=== PATIENT | male | born 1960 | race Caucasian/White ===

== ENCOUNTER 2016-06-06 07:58 | Emergency (ER) | payer BC ==
[~2016-06-06] VITALS: Ht 175.3 cm; Wt 87.1 kg
[2016-06-06] MEDS ORDERED: LISI-538 (08:26)
[2016-06-06] MEDS ORDERED: GABA-279 (08:26)
[2016-06-06] MEDS ORDERED: LISI40TAB (08:26)
[2016-06-06] MEDS ORDERED: ATOR40TA (08:26)
[2016-06-06] MEDS ORDERED: FLUT1SPR2 (08:26)
[2016-06-06] MEDS ORDERED: LABE20TAB (08:26)
[2016-06-06] MEDS ORDERED: ALBU83IN (08:26)
[2016-06-06] MEDS ORDERED: ATRO0.063 (08:26)
[2016-06-06] MEDS ORDERED: IPRATROPIUM 0.5MG/ALBUTEROL 2.5MG INH SOL UD 3ML (DUONEB)(J7620) NEB ONE (08:45)
[2016-06-06] MEDS ORDERED: PRED20TA PO (09:51)
[2016-06-06 09:59] VITALS: BP 162/98
--- NOTE | 2016-06-06 09:59 | REP ---
CHEST, TWO VIEWS: COMPARISON: 01/19/2016. There is no evidence of acute infiltrate. No pleural effusion is seen. The heart is normal in size. The mediastinal silhouette is unremarkable. The visualized osseous structures are intact. There are degenerative changes of the spine. IMPRESSION: No acute pulmonary disease. Signed by Luciano Russell MD 06/06/2016 01:55 P
== END 2016-06-06 10:02 | disposition home or self-care (01) ==
LOC: M ED 09:40
DX: J45.901 Unspecified asthma with (acute) exacerbation (principal); J06.9 Acute upper respiratory infection, unspecified; I10 Essential (primary) hypertension; K58.9 Irritable bowel syndrome, unspecified; G89.29 Other chronic pain; M54.9 Dorsalgia, unspecified; F17.200 Nicotine dependence, unspecified, uncomplicated; Z79.899 Other long term (current) drug therapy

== ENCOUNTER → 2016-06-25 | Outpatient (CLI) | payer BC ==
[~2016-06-25] MED LIST: ADVA115A INH; ALBU83IN; ATOR40TA; ATOR40TA PO; ATRO0.063; ELIQ5TAB PO; FLUT1SPR2; GABA-279; GABA-279 PO; LABE20TAB; LABE20TAB PO; LEVA750T PO; LISI-538; LISI10TA4 PO; LISI40TAB; LISI40TAB PO; LOPR1TAB6 PO; PRED20TA PO; PROA1AER INH
--- NOTE | 2016-07-01 06:07 | SLEEPHOME ---
DATE OF PROCEDURE: 06/25/2013 ORDERED BY: Kim Huerta NP Diagnostic home sleep testing was performed due to concern for the obstructive sleep apnea syndrome in this patient with a history of excessive somnolence and nonrestorative sleep. For testing, a NOX-T3 respiratory monitoring device was used. Continuous record was made of pulse, oxygen saturation, airflow, chest and abdominal strain and body position. 9 hours and 59 minutes of data were reviewed. Of these, 6 hours and 27 minutes were marked as time in bed. During the interval marked time in bed, there were 129 respiratory events identified of 10 seconds in duration or greater for a respiratory event index of 20. The events were primarily obstructive in character. The patient's baseline pulse rate was 84 beats per minute. Pulse rate ranged 59-126. Baseline oxygen saturation 93%. Lowest oxygen saturation 83%. Testing was performed in both the supine and non-supine positions. IMPRESSION: Abnormal home sleep testing with repetitive respiratory events and oxygen desaturations to 83% with a respiratory event index of 20 is consistent with the obstructive sleep apnea syndrome. RECOMMENDATION: The patient should be referred for formal sleep evaluation and in-laboratory pressure titration.
== END ==
LOC: M SLEEP HO 06-21 08:28
PROVIDERS: ATTEND Nurse Practitioner Adult Health
DX: G47.30 Sleep apnea, unspecified (principal)

== ENCOUNTER 2016-06-28 03:12 | Inpatient (IN) | payer BC ==
[~2016-06-28] VITALS: Ht 175.3 cm; Wt 85.9 kg
[~2016-06-28 03:12] MED LIST changes: -ADVA115A INH; -ATOR40TA PO; -ELIQ5TAB PO; -GABA-279 PO; -LABE20TAB PO; -LEVA750T PO; -LISI10TA4 PO; -LISI40TAB PO; -LOPR1TAB6 PO; -PROA1AER INH
[2016-06-28] MEDS ORDERED: METOPROLOL 5 MG/5 ML VIAL As Ordered ONE (03:42)
[2016-06-28] MEDS ORDERED: NS 1,000 ML IV ONE ×2 (03:45→04:30)
[2016-06-28] MEDS ORDERED: ASPIRIN 81 MG CHEW TABLET PO ONE (03:45)
[2016-06-28] MEDS: METOPROLOL 5 MG/5 ML VIAL IV SCH ×6 (03:47→06:10)
[2016-06-28 03:54] LABS: BASO % 0.5 % (0.0-1.0); EOS # 0.3 K/mm3 (0.0-0.50); EOS % 3.6 % (0.0-3.0); LARGE UNSTAINED CELL # 0.2 K/mm3 (0.0-0.4); LARGE UNSTAINED CELL % 2.3 % (0.0-4.0); LYMPH # 1.5 K/mm3 (1.5-4.5); LYMPH % 14.6 % (24.0-44.0); MEAN CORPUSCULAR HEMOGLOBIN 30.1 pg (27.0-33.0); MEAN CORPUSCULAR HGB CONC 33.2 g/dl (32.0-36.5); MEAN CORPUSCULAR VOLUME 90.6 fl (80.0-96.0); MONO # 0.7 K/mm3 (0.0-0.8); MONO % 7.9 % (0.0-5.0); NEUTROPHILS # 6.4 K/mm3 (1.8-7.7); NEUTROPHILS % 71.2 % (36.0-66.0); PLATELET COUNT, AUTOMATED 195 k/mm3 (150-450); RED CELL DISTRIBUTION WIDTH 13.8 % (11.5-14.5); WHITE BLOOD COUNT 8.9 K/mm3 (4.0-10.0)
[2016-06-28] MEDS ORDERED: DIGOXIN INJ 0.5 MG/2 ML AMP (J1160) IV STA (04:38)
[2016-06-28 05:11] LABS: CALCIUM LEVEL 7.4 MG/DL (8.5-10.1); CREATININE FOR GFR 1.61 MG/DL (0.70-1.30); FREE T4 0.62 NG/DL (0.76-1.46); GLOMERULAR FILTRATION RATE 47.8 (>56); MAGNESIUM LEVEL 1.7 MG/DL (1.8-2.4)
[2016-06-28] MEDS ORDERED: MAG SULF 1GM/100ML (MAG RUN) 1 GM in APPROPRIATE DILUENT 1 EA IV ONE (05:45)
[2016-06-28] MEDS ORDERED: ATENOLOL 50 MG TAB PO ONE (06:15)
[2016-06-28] MEDS ORDERED: DIGOXIN INJ 0.5 MG/2 ML AMP (J1160) IV ONE (06:30)
--- NOTE | 2016-06-28 07:49 | REP ---
Clinical: Chest pain . Comparison: 06/06/2016 . Findings: The mediastinum and cardiac silhouette are stable and within normal limits for portable technique. The lung melvin are clear without acute consolidation, effusion, or pneumothorax. Skeletal structures are intact. Impression: Normal portable chest x-ray Signed by Ciaran Goddard MD 06/28/2016 07:40 A
[2016-06-28] MEDS ORDERED: LABE20TAB PO (08:39)
[2016-06-28] MEDS ORDERED: ADVA115A INH (08:39)
[2016-06-28] MEDS ORDERED: ATOR40TA PO (08:39)
[2016-06-28] MEDS ORDERED: PROA1AER INH (08:39)
[2016-06-28] MEDS ORDERED: LISI40TAB PO (08:39)
[2016-06-28 08:46] LABS: CALCIUM LEVEL 7.1 MG/DL (8.5-10.1); CREATININE FOR GFR 1.47 MG/DL (0.70-1.30); GLOMERULAR FILTRATION RATE 53.1 (>56); POTASSIUM SERUM 4.9 MEQ/L (3.5-5.1)
[2016-06-28] MEDS ORDERED: APIXABAN 5 MG TAB (ELIQUIS) PO SCH (09:00)
[2016-06-28] MEDS ORDERED: LISI10TA4 PO (09:12)
[2016-06-28 09:39] VITALS: BP 90/53
--- NOTE | 2016-06-28 09:41 | ECGEPIP ---
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
[2016-06-28] MEDS ORDERED: GABA-279 PO (10:08)
[2016-06-28] MEDS ORDERED: ALBUTEROL 90 MCG/ACT 8GM HFA INHALER INH PRN (10:45)
--- NOTE | 2016-06-28 11:18 | HPE ---
DATE OF ADMISSION: 06/28/2016 PRIMARY CARE PHYSICIAN: Telma Carlton. STEEL SASH ERECTOR: Dr. Henriquez. CHIEF COMPLAINT: Shortness of breath and chest pressure. HISTORY OF PRESENT ILLNESS: The patient is a 56-year-old man who was previously not seen by doctors who recently established primary care over the last several weeks with Telma Carlton. He was found to have hypertension and medications were titrated up. He reportedly has had an abnormality on his EKG and was referred to Dr. Henriquez who completed the stress test and an echocardiogram which were completed just this past Tuesday. 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 In the emergency room, the patient was found to be in atrial fibrillation with a rapid ventricular response. Dr. Logan was called overnight and this morning and the case was discussed with him. The patient did receive Lopressor 5 mg IV times three doses. This protocol was completed twice. In addition, this patient also received a total of 0.5 mg of digoxin. The patient also received 50 mg of atenolol once. The patient gradually became hypotensive and the hospitalist service was called for admission. At the present time, the patient tells me that he feels lightheaded when he sits up but when he is lying flat, he is comfortable. He states that the chest pressure comes and goes intermittently but the shortness of breath is improved at this time. PAST MEDICAL HISTORY: Asthma. Dyslipidemia. Hypertension. Irritable bowel syndrome. HOME MEDICATIONS: - labetalol 200 mg daily - lisinopril 40 mg daily - atorvastatin 40 mg daily at bedtime - Advair 115/25 two puffs inhaled twice daily - Pro Air HFA 108 mcg two puffs every 4 hours as needed shortness of breath No known drug allergies. SOCIAL HISTORY: The patient is a former smoker. He denies any recent alcohol use. He works at [employer]. Denies elicit substance abuse. FAMILY HISTORY: Noncontributory. REVIEW OF SYSTEMS: Negative other than history of present illness. SURGICAL HISTORY: None. OBJECTIVE: Vital signs: Temperature 96.2, pulse 100-110 while I am examining him, respiratory rate 20, blood pressure 90/59, oxygen saturation 97% on 2 liters nasal cannula. General: He is a well built man lying flat in bed. He does not appear to be in any acute distress. HEENT: He has a long recinos and long hair. any elevation of central venous pressure. He has moist mucous membranes. Cranial nerves II-XII grossly intact. Cardiovascular exam: S1, S2. Irregularly irregular. Mildly tachycardia. Respiratory exam: Clear. Abdominal exam: Benign. Extremities: He has numerous tattoos, some of them appear not to be professionally completed. There is no clubbing, cyanosis or edema. LABORATORY STUDIES: WBC 8.9, hemoglobin 32.7, platelet count 195. Chemistry panel: Sodium 139, potassium 4.9, chloride 107, bicarbonate 22, BUN 29, creatinine 1.6 improving to 1.4 after IV fluid resuscitation in the emergency room. He has a TSH slightly elevated at 4.1. Chest x-ray is completed. It is a normal portable chest x-ray. EKG revealed atrial fibrillation with rapid ventricular response. ASSESSMENT AND PLAN: This is a 56-year-old man with new onset atrial fibrillation with rapid ventricular response. PROBLEMS: 1. Atrial fibrillation with rapid ventricular response. He reportedly recently had a stress test and echocardiogram completed within the last week at Dr. Henriquez and Dr. Diego's office. I have contacted Dr. Diego and made him aware of the case. He has agreed to see the patient in consultation. For the time being, the patient is quite hypotensive. I will not administer any further beta blockers at this time. In fact, I will provide him with normal saline 100 mL an hour as he is quite symptomatic with orthostasis at this time. I will continue with oral digoxin. Should his blood pressure improve, could consider standing beta gurvinder medication with careful hold parameters but at present, his heart rate is at least acceptable within 100-110s. It is unclear if this is or not. An echocardiogram would likely be helpful to elucidate further. Given that he has stayed in atrial fibrillation, there does not appear to be any appreciably, in fact long standing hypotension which is likely untreated. I would like to start him on anticoagulation with Eliquis. He will likely need a prior authorization for this prior to any dispositioning should we decide that he remain on this medication. 2. Asthma. Continue with standing Advair and albuterol as needed. 3. Hypertension. Patient is actually hypotensive at the present time and as such, his labetalol and lisinopril will be placed on hold. 4. Acute kidney injury likely related to lisinopril use and also hypotension related to atrial fibrillation with rapid ventricular response and medication administration. For rate control for the time being, we will continue to provide him with IV fluid. It appears to trending in the right direction. Continue to follow. 5. Dyslipidemia. Continue with atorvastatin. DISPOSITION: The patient is admitted to the progressive care unit. We will continue to follow him closely. He will be followed up by Dr. Trujillo starting 06/29/2016. We will trend his cardiac enzymes.
[2016-06-28] MEDS: ACETAMINOPHEN TAB 650MG DOSE (2X325MG) PO PRN (11:43)
[2016-06-28] MEDS: NS 1,000 ML IV SCH ×2 (12:14→21:05)
[2016-06-28 12:17] LABS: INR 1.06
[2016-06-28 12:45] LABS: THYROXINE (T4) 3.3 UG/DL (4.5-12.0)
[2016-06-28 13:45] VITALS: BP 126/66
[2016-06-28 16:00] VITALS: BP 109/65
[2016-06-28] MEDS: METOPROLOL TART 25 MG TABLET PO SCH (18:37)
[2016-06-28 19:16] VITALS: BP 84/50
[2016-06-28] MEDS ORDERED: SODIUM CHLORIDE 0.9% 1000 ML IV ONE ×2 (20:00→22:00)
[2016-06-28] MEDS: ADVAIR HFA 115/21 INHALER INH SCH (20:51)
--- NOTE | 2016-06-28 21:25 | ECGEPIP ---
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
--- NOTE | 2016-06-28 21:49 | CR ---
DATE OF CARDIAC CONSULTATION: 06/28/2016 REFERRING PHYSICIAN: Dr. Navarrete INDICATION: Atrial fibrillation, chest pain, shortness of breath. HISTORY OF PRESENT ILLNESS: Mr. Roper is previously unknown to me. He is a 56-year-old man who in the past did not get much medical care. It appears that only last month or two he established care with a primary care physician. He eventually was referred to my partner Dr. Henriquez for a stress test and echocardiogram that were completed on June 23. Both tests were relatively uneventful, but then he presented on 06/28/2016 to [facility] emergency room because of chest discomfort and shortness of breath. The symptoms started at work. 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 There was associated sensation of shortness of breath. He eventually made it to the emergency room on insistence of his colleagues. He was found to be in atrial fibrillation with rapid ventricular response. He was treated with administration of initially IV beta blockers and digoxin, but then his condition started to be complicated by episodes of hypotension and he was receiving fairly vigorous IV hydration. The chest discomfort relatively subsided, but he continues to have brief episodes that would last about 30-60 seconds at a time. Now he describes the pain as sharp sensation, even though initially at night it was more like pressure or tightness. He tells me that he has not had similar symptoms before in this intensity and duration even though he has had intermittent episodes of chest discomfort of similar kind for long period of time. At the time of my interview he fairly comfortable. He lays in PCU bed and tells me that besides occasional episode of chest pain that would occur about once every 30 minutes and last only seconds at a time, he has been feeling fairly well. PAST MEDICAL HISTORY: The patient has not had consistent medical care for many years. He carries a diagnosis of asthma that has been the case for decades. More recently after he establish care he was found to be markedly hypertensive and was started on a combination of initially lisinopril and later there was addition of labetalol. He had an echocardiogram and nuclear stress test completed in our office and interpreted by Dr. Henriquez on June 23, 2016. Exercise nuclear stress test revealed excellent exertional tolerance. He was able to exercise for 13 metabolic equivalents and reached 83% of maximum predicted heart rate and a somewhat hypertensive blood pressure response to exercise. There was no chest discomfort during the test and he had no arrhythmias. Also there was no EKG evidence for ischemia. Perfusion imaging though revealed inferoseptal defect that was mostly fixed and relatively small and this was in setting of diaphragmatic attenuation. Overall the test was interpreted as mildly abnormal. An echocardiogram performed on the same day revealed relatively normal study. Again, there was questionable inferior wall hypokinesis, but overall ejection fraction was reported 55-60% and there was no significant valvular disease. He also has a history of hyperlipidemia, chronic back pain and probable also obstructive sleep apnea. He has apparently loud snoring and witnessed pauses. He completed outpatient sleep study that has not been interpreted yet. OUTPATIENT MEDICATIONS: - Lipitor 40 mg a day - labetalol 200 mg a day - lisinopril 40 mg a day - Advair - ProAir ALLERGIES: He reports no medication allergies. SOCIAL HISTORY: The patient is single, has no children. She currently lives with his neice. He does not smoke and does not drink any alcohol. He did smoke intermittently in the past, but his pack-year history is probably less than 20. He also reports fairly remote history of significant alcohol use, but nothing recently. FAMILY HISTORY: His mother in advanced age of probably COPD and congestive heart failure. She was diabetic. Father also had COPD and diabetes, but to the best of the patient and his sister, they did not have heart attacks, stents or coronary artery bypass surgery. PAST SURGICAL HISTORY: He has not had any surgeries. REVIEW OF SYSTEMS: On the review of systems he admits that approximately 3 weeks ago he had a prolonged upper respiratory infection, but denies any truly recent fever, chills, nausea, vomiting, diarrhea, abdominal pain. No bleeding problems. No history of stroke. He denies any palpitations other than the night before the admission. Denies any history of syncope. No peripheral edema. No genitourinary symptoms and the rest of review of system is negative. PHYSICAL EXAMINATION: Mr. Roper is a middle-aged man. He appears to be in good physical shape; does not appear to be in any distress. The last set of vital signs reveal blood pressure 100/58, heart rate about 120. He was afebrile. Saturation was 97% on room air. His jugular venous pressure is not elevated. Lungs are clear to auscultation with good air movement bilaterally. Heart: Exam reveals irregularly irregular rhythm. I do not appreciate any gallop, rub or murmur. Abdomen is soft without rebound tenderness. No hepatosplenomegaly. Good bowel sounds. Extremities are free of edema and peripheral pulses are of good quality. Neurologic exam is intact. LABORATORY DATA: He has had a CBC, which would is completely normal. Basic metabolic panel reveals potassium 4.9, BUN 29, creatinine 1.5 for GFR 53 and glucose 104. Two sets of cardiac enzymes have been negative. TSH was 4.1 with free T4 index 1.2 and INR was 1.1. Chest x-ray is unremarkable and ECG reveals atrial fibrillation with rapid ventricular response, but without significant ST-T abnormalities. ASSESSMENT/PLAN: Mr. Roper is a middle-aged man who has a history of hypertension, asthma and hyperlipidemia who presents with less than 24 hours history of chest discomfort that has some features of angina, but there is no evidence for ischemia or myocardial necrosis in spite of at least 3 or 4 hours of constant discomfort. He also is found in atrial fibrillation with rapid ventricular response and relatively hypotensive. At this point, I have to admit that I have difficult time reconciling the whole history. I am not quite sure why he developed atrial fibrillation in this particular time and also I am not certain what is the etiology of chest discomfort. So far there has not been any objective evidence to suggest that this is ischemic in nature. I agree with current management. I would continue digoxin loading with as needed (p.r.n.) administration of beta blockers for additional rate control. We will complete formal rule out protocol even though at this point I would be surprised if he rules in for ischemia. I do not suspect that he has pulmonary embolism as he is saturating in high 90s without any difficulty. Even though he did have a recent echocardiogram, I probably will repeat the study unless he converts to sinus mechanism by tomorrow morning. If he does not convert to sinus mechanism overnight I would consider administration of flecainide or similar agent. By history he has not been in atrial fibrillation for more than 24 hours and consequently I believe it is safe to proceed with cardioversion. Further evaluation for coronary artery disease can be completed on outpatient basis on the direction of Dr. Henriquez. I will continue following the patient with you. ESAU
[2016-06-28 22:05] VITALS: BP 112/57
[2016-06-28] MEDS: ATORVASTATIN 20 MG TAB PO SCH (22:15)
[2016-06-28] MEDS: APIXABAN 5 MG TAB (ELIQUIS) PO SCH (22:15)
[2016-06-29] VITALS (8 sets, daily range): BP systolic 105–140; BP diastolic 69–136
--- NOTE | 2016-06-29 00:33 | IPN ---
DATE: 06/28/2016 TIME THE PATIENT WAS SEEN: 20:00 Evening resident and attending were paged around 7:50 due to patient had a drop in blood pressure. Blood pressure was 100s systolic during the day and dropped to 84/50 during the evening. Upon reviewing the chart, the patient appears to be a 56-year-old male with a past medical history of asthma, hypertension, irritable bowel syndrome, dyslipidemia and he presented with atrial fibrillation with rapid ventricular response and he also had a stress echocardiogram completed within the last week at Dr. Henriquez and Dr. Diego's office. The patient did receive several doses of beta gurvinder, as well as digoxin before admission. During the day time, the patient received 2 liters of boluses. The last time the patient received beta gurvinder the day prior around 4 a.m. The patient also has beta gurvinder 25 mg every 6 hours with hold parameters, as well as digoxin 0.25 mg. When the patient was seen, he was asymptomatic. Denies any chest pain, trouble breathing, denies feeling dizzy. However, he appeared to be sweaty. His heart rate continued to be irregular. At this point, electrocardiogram (EKG) was done, shows atrial fibrillation with moderate fast ventricular response, nonspecific ST-T wave abnormalities with heart rate of 115 and cardiac marker was done as well, shows a troponin of 0.06, slightly elevated compared to prior troponin at 4 p.m., which was 0.05. At this point, the patient was initially bolused with 250 mL of normal saline. Another 500 mL of normal saline bolus was added and the patient's second blood pressure reading was 105/57. Will continue to monitor the patient on cardiac telemetry at this point and followup with morning cardiac marker. The patient has been discussed with the attending doctor, Dr. Jones. My preceptor for this patient encounter was Dr. Jones . The preceptor was physically present in the building during the encounter and was fully available. As needed, all aspects of the patient interview, examination, medical decision making process, and medical care plan development were reviewed and approved by the preceptor. The preceptor is aware and concurs with the plan as stated in the body of this note and will attest to such by his/her cosignature. ESAU
[2016-06-29] MEDS: METOPROLOL TART 25 MG TABLET PO SCH ×4 (00:42→17:21)
[2016-06-29 04:16] LABS: MEAN CORPUSCULAR HEMOGLOBIN 29.8 pg (27.0-33.0); MEAN CORPUSCULAR HGB CONC 33.1 g/dl (32.0-36.5); MEAN CORPUSCULAR VOLUME 89.9 fl (80.0-96.0); RED CELL DISTRIBUTION WIDTH 13.7 % (11.5-14.5); WHITE BLOOD COUNT 9.1 K/mm3 (4.0-10.0)
[2016-06-29 04:39] LABS: ANION GAP 8 MEQ/L (8-16); BLOOD UREA NITROGEN 17 MG/DL (7-18); CALCIUM LEVEL 7.7 MG/DL (8.5-10.1); CARBON DIOXIDE LEVEL 25 MEQ/L (21-32); CHLORIDE LEVEL 110 MEQ/L (98-107); CREATININE FOR GFR 1.12 MG/DL (0.70-1.30); GLOMERULAR FILTRATION RATE > 60.0 (>56); GLUCOSE, FASTING 100 MG/DL (70-105); POTASSIUM SERUM 4.5 MEQ/L (3.5-5.1); SODIUM LEVEL 143 MEQ/L (136-145)
[2016-06-29] MEDS: NS 1,000 ML IV SCH (05:52)
[2016-06-29] MEDS: ADVAIR HFA 115/21 INHALER INH SCH ×2 (07:09→19:27)
--- NOTE | 2016-06-29 07:56 | IPN ---
DATE: 06/29/2016 Mr. Roper had a relatively uneventful night. He told me that he was able to sleep without difficulty. After he woke up this morning, he still has brief episodes of chest discomfort that are much less severe than yesterday. On telemetry monitoring, he remained in atrial fibrillation with mostly fast ventricular rate that fluctuated between 80s to 130s. Blood pressure 135/78, heart rate 93, afebrile, saturation 94% on room air. Weight 86.7 kg. He is alert, oriented and appropriate. His jugular venous pulse (JVP) is not elevated. Lungs are clear to auscultation. Heart exam revealed irregularly irregular rhythm. No gallop, rub or murmur is appreciated. Abdomen is soft, nontender. There is no peripheral edema. Neurologically, he is intact. There are no skin lesions. Laboratory-valle, his basic metabolic panel remains normal. Cardiac enzymes remain normal times four. CBC is normal as well. ASSESSMENT/PLAN: Mr. Roper is a 56-year-old man who came in with chest discomfort that has some features of angina, but there were no ischemic abnormalities on electrocardiogram (EKG) and his cardiac enzymes remain negative in spite of many hours of chest discomfort. He was found to be in atrial fibrillation with rapid ventricular response. He has had so far 0.75 mg of digoxin and he will get another 0.25 mg of digoxin this morning and on top of it receiving metoprolol. Rate is still not perfectly well controlled, but is much better. Because the duration of the arrhythmia is less than 24 hours before the onset of anticoagulation, I am going to give him flecainide with the attempt to bring him back to sinus mechanism. I am going to give him 150 mg initial dose and if he should not convert then will give him an additional 100 mg a couple of hours later. I am quite optimistic that the conversion will occur. In the interim, will continue remaining medications.
[2016-06-29] MEDS ORDERED: FLECAINIDE 50MG TABLET PO ONE ×2 (08:00→11:45)
[2016-06-29] MEDS: APIXABAN 5 MG TAB (ELIQUIS) PO SCH ×2 (08:30→20:13)
[2016-06-29] MEDS ORDERED: DIGOXIN 0.25 MG TAB PO SCH (09:00)
--- NOTE | 2016-06-29 09:51 | IPNPDOC ---
Text Note Date of Service The patient was seen on 06/29/16. NOTE Subjective: Patient is a 56 year old male with a PMHx of Asthma, DLP, HTN and Imitable bowel syndrome who presented to the ER with complaints of SOB and chest pressure. In the ER he was found to have A.fib with RVR and received Metoprolol 5mg IV x6, Digoxin loading and Atenolol. His HR was better controlled but he was hypotensive. His blood pressure improved with IV fluid hydration. Patient was seen and examined at the bedside. Currently he does not note any SOB or chest pain. Objective: Vitals (See below) General: Lying in bed, no acute distress, comfortable, AAOx3 HEENT: NC, AT CVS: Irregularly irregular, +S1S2 Lungs: Fair air entry b/l, -w/r/r Abdomen: Soft, ND, NT, +BSx4 Extremities: +PPx4, - Edema, - Calf tenderness Assessment and Plan: 1. New onset atrial fibrillation - Presented with SOB and chest discomfort - In ER received several doses of Metoprolol IV and oral beta gurvinder, was loaded with digoxin - Recent history of stress test and ECHO done as an outpatient with Dr. Henriquez - Will get repeat ECHO - Dr. Diego on consult - appreciate their input - Will attempt to pharmacologically cardiovert to normal sinus rhythm with Flecainide - On anticoagulation with Eliquis 2. Acute Kidney Injury - likely pre-renal etiology 2/2 Hypotension - Cr has been trending down - Will c/w IV fluid resuscitation 3. Asthma - No evidence of exacerbation at this time - c/w Advair and Albuterol PRN 4. HTN - BP well controlled - Was found to have positive orthostatics; given many beta blockers - will continue to check orthostatic vital signs - will continue to hold blood pressure medications 5. DLP - c/w atorvastatin 6. DVT prophylaxis - on full anticoagulation with Eliquis VS,Fishbone, I+O VS, Fishbone, I+O Laboratory Tests 06/29/16 03:49 Calcium Level 7.7 L, Total Creatine Kinase 172, Red Blood Count 4.85, Mean Corpuscular Volume 89.9, Mean Corpuscular Hemoglobin 29.8, Mean Corpuscular Hemoglobin Concent 33.1, Red Cell Distribution Width 13.7 Vital Signs Date Time Temp Pulse Resp B/P Pulse Ox O2 Delivery O2 Flow Rate FiO2 06/29/16 08:30 93 06/29/16 08:00 99.5 18 123/74 93 Room Air 06/28/16 09:39 2.0 I&O- Last 24 Hours up to 6 AM 06/29/16 06:00 Intake Total 2250 ml Output Total 2750 ml Balance -500 ml DILAN MELO MD Jun 29, 2016 09:51
[2016-06-29] MEDS: ACETAMINOPHEN TAB 650MG DOSE (2X325MG) PO PRN (17:22)
[2016-06-29] MEDS: ATORVASTATIN 20 MG TAB PO SCH (20:13)
[2016-06-29] MEDS ORDERED: FLECAINIDE 100 MG TABLET PO ONE (21:00)
[2016-06-29] MEDS: METOPROLOL TART 50 MG TAB PO SCH (23:18)
[2016-06-30] MEDS ORDERED: IPRATROPIUM 0.5MG/ALBUTEROL 2.5MG INH SOL UD 3ML (DUONEB)(J7620) NEB PRN (01:15)
[2016-06-30 04:45] VITALS: BP_SYST 140; BP_SYST 147; BP_SYST 150; BP_DIAS 88; BP_DIAS 92; BP_DIAS 94
[2016-06-30] MEDS: METOPROLOL TART 50 MG TAB PO SCH ×3 (05:00→17:13)
[2016-06-30 05:49] LABS: MEAN CORPUSCULAR HGB CONC 33.7 g/dl (32.0-36.5); RED CELL DISTRIBUTION WIDTH 13.7 % (11.5-14.5); WHITE BLOOD COUNT 13.7 K/mm3 (4.0-10.0)
[2016-06-30 05:56] LABS: ANION GAP 7 MEQ/L (8-16); BLOOD UREA NITROGEN 14 MG/DL (7-18); CALCIUM LEVEL 8.5 MG/DL (8.5-10.1); CARBON DIOXIDE LEVEL 25 MEQ/L (21-32); CHLORIDE LEVEL 105 MEQ/L (98-107); GLOMERULAR FILTRATION RATE > 60.0 (>56); GLUCOSE, FASTING 129 MG/DL (70-105); POTASSIUM SERUM 4.3 MEQ/L (3.5-5.1); SODIUM LEVEL 137 MEQ/L (136-145)
[2016-06-30] MEDS: ADVAIR HFA 115/21 INHALER INH SCH ×2 (06:58→19:31)
--- NOTE | 2016-06-30 07:04 | ECGEPIP ---
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
--- NOTE | 2016-06-30 07:55 | IPN ---
DATE: 06/30/2016 Mr. Roper did not have a very good day yesterday. I tried to cardiovert him using flecainide. He got total 400 mg yesterday but it failed to restore sinus mechanism. Quite to the contrary, he actually converted to atrial flutter and heart rate became more tachycardic. At night, he had an episode he was very short of breath and apparently wheezing but with one treatment that improved. This morning he feels the tachycardia but otherwise has no other complaints. He still has occasional brief chest discomfort that has not changed appreciably. He does not have any sore throat. He does not have any cough. There has not been any burning on urination and no chills as such. Vital signs: Blood pressure is 147/97, heart rate is in 130s. His fluid balance yesterday was slightly negative. Weight is 85.6 kg. He is alert and oriented and appropriate. Does not appear to be in any distress. His JVP is not elevated. Lungs are clear to auscultation with good air movement. Heart exam reveals regular tachycardia. I do not appreciate any murmur or rub. Abdomen is soft without tenderness, rebound tenderness. Extremities have good pulses and no edema. I do not appreciate any skin lesions. LABORATORY: Basic metabolic panel is normal other and glucose 129. CBC: Hemoglobin 16.1, hematocrit 47 and platelet count 191,000. WBC count is 13.7 which is elevated from yesterday. INR is 1.0. He had only one elevated temperature measurement, for the most part he was afebrile. EKG this morning is pending. ASSESSMENT/PLAN: Mr. Roper is a 56-year-old man without history of established coronary artery disease or congestive heart failure who came with complaint of chest discomfort and was found to be in atrial fibrillation with rapid ventricular response. He actually had a nuclear stress test and echocardiogram in our office just 4 days prior to the admission and was in sinus rhythm. By his description, the atrial fibrillation likely started within 12 hours of the admission. Initially we used digoxin and metoprolol for rate control and then I tried to cardiovert him using flecainide which was not successful. At this point I think I should proceed with DC cardioversion. The patient signed the consent form and we tentatively scheduled the procedure for this afternoon. In the interim, I am going to investigate as to why he has fever and will obtain a chest x-ray and urinalysis because he had only one elevated temperature, I think a little premature to give him antibiotics or obtain cultures. He has been anticoagulated since presentation to the hospital.
[2016-06-30 08:00] VITALS: BP 135/82
[2016-06-30] MEDS: APIXABAN 5 MG TAB (ELIQUIS) PO SCH ×2 (08:05→20:00)
[2016-06-30] MEDS: ACETAMINOPHEN TAB 650MG DOSE (2X325MG) PO PRN (08:05)
--- NOTE | 2016-06-30 08:40 | REP ---
Clinical: Fever. Atrial fibrillation. Technique: PA and lateral. Comparison: 06/28/2016. Findings: Mediastinum and cardiac silhouette are normal. Lung melvin demonstrate chronic changes with superimposed bilateral patchy infiltrates suggesting multifocal pneumonia. No definite effusion. No pneumothorax. Skeletal structures intact. Impression: Bilateral infiltrates suggesting multifocal pneumonia. Signed by Ciaran Goddard MD 06/30/2016 08:31 A
[2016-06-30] MEDS ORDERED: AZITHROMYCIN INJ 500 MG, VIAL MATE ADAPTER 1 EACH in D5W 250 ML IV SCH (10:15)
[2016-06-30] MEDS ORDERED: cefTRIAXone SOD 2 GM in D5W MINI-BAG PLUS 50 ML IV SCH (10:15)
[2016-06-30] MEDS ORDERED: FIORICET TAB PO ONE (10:30)
--- NOTE | 2016-06-30 11:31 | IPNPDOC ---
Text Note Date of Service The patient was seen on 06/30/16. NOTE Subjective: Patient is a 56 year old male with a PMHx of Asthma, DLP, HTN and Imitable bowel syndrome who presented to the ER with complaints of SOB and chest pressure. In the ER he was found to have A.fib with RVR and received Metoprolol 5mg IV x6, Digoxin loading and Atenolol. His HR was better controlled but he was hypotensive. His blood pressure improved with IV fluid hydration. Patient was seen and examined at the bedside. He noted that yesterday night he became short of breath and was given a breathing treatment. He was also noted to be febrile this morning. Objective: Vitals (See below) General: Lying in bed, no acute distress, comfortable, AAOx3 HEENT: NC, AT CVS: Irregularly irregular, +S1S2 Lungs: Fair air entry b/l, -w/r/r Abdomen: Soft, ND, NT, +BSx4 Extremities: +PPx4, - Edema, - Calf tenderness Assessment and Plan: 1. New onset atrial fibrillation - Presented with SOB and chest discomfort - In ER received several doses of Metoprolol IV and oral beta gurvinder, was loaded with digoxin - Recent history of stress test and ECHO done as an outpatient with Dr. Henriquez - Will get repeat ECHO - Dr. Diego on consult - appreciate their input - Unable to pharmacologically convert with Flecainide; will go for electrical cardioversion today with Dr. Diego - On anticoagulation with Eliquis 2. Fever - likely 2/2 bilateral pneumonia - possibly 2/2 HCAP - Reports some shortness of breath yesterday night, was febrile this morning at 101.3 - Physical unrevealing - UA pending - CXR 06/30: bilateral infiltrates suggesting multifocal pneumonia - Will order blood cultures, sputum cultures - Will start Cefepime (Day #1) at this time - Will start Acapella and Incentive spirometry 3. s/p Acute Kidney Injury - likely pre-renal etiology 2/2 Hypotension - Cr has been trending down - Will c/w IV fluid resuscitation 4. Asthma - No evidence of exacerbation at this time - c/w Advair and Albuterol PRN 5. HTN - BP well controlled - Was found to have positive orthostatics intially; now normalized - will discontinue orthostatic vital signs - will continue to hold blood pressure medications 6. DLP - c/w atorvastatin 6. DVT prophylaxis - on full anticoagulation with Eliquis VS,Fishbone, I+O VS, Fishbone, I+O Laboratory Tests 06/30/16 05:08 Calcium Level 8.5, Red Blood Count 5.36, Mean Corpuscular Volume 89.0, Mean Corpuscular Hemoglobin 30.0, Mean Corpuscular Hemoglobin Concent 33.7, Red Cell Distribution Width 13.7 Vital Signs Date Time Temp Pulse Resp B/P Pulse Ox O2 Delivery O2 Flow Rate FiO2 06/30/16 10:23 18 06/30/16 08:00 101.3 133 135/82 94 Room Air 06/28/16 09:39 2.0 I&O- Last 24 Hours up to 6 AM 06/30/16 05:59 Intake Total 3600 ml Output Total 2950 ml Balance 650 ml DILAN MELO MD Jun 30, 2016 11:31
[2016-06-30] MEDS ORDERED: PROPOFOL 200 MG/20 ML VIAL As Ordered ONE (12:00)
--- NOTE | 2016-06-30 12:31 | RO ---
DATE OF PROCEDURE: 06/30/2016 PREOPERATIVE DIAGNOSIS: Atrial fibrillation/flutter POSTOPERATIVE DIAGNOSIS: Conversion to sinus rhythm PROCEDURE: DC cardioversion. SURGEON: Saul Diego MD STEEL MOLDER: None ANESTHESIA: COREY Joe Ed, MD BRIEF HISTORY: Mr. Roper is a 56-year-old man who came to hospital with atrial fibrillation with rapid ventricular response. The symptoms started only a few hours prior to his presentation. He was actually seen earlier that week by Dr. Henriquez and was in sinus mechanism. He was immediately anticoagulated and after he was not able to be converted into sinus rhythm with a combination of digoxin, metoprolol and flecainide, we decided to pursue DC cardioversion. Actually at the time of the procedure, he was in atrial flutter with 2:1 conduction and ventricular rate approximately 140 beats per minute. I obtained the consent for the procedure earlier during rounds this morning. All his questions were answered; same applies to questions by his family. DESCRIPTION OF PROCEDURE: Anesthesiology provided sedation. It was Srinivasan Hale CRNA and Aurelio Restrepo MD. He received IV propofol and lidocaine. When appropriate level sedation was accomplished he was cardioverted using defibrillator patches applied in anterior position. He received 150 joules in synchronized mode. It led to evangelical of sinus mechanism without post conversion pause. He tolerated the procedure well and there were no immediate complications. At that time of my dictation, a 12-lead ECG is pending. PLAN: The patient will return to progressive care unit (PCU) after he sufficiently recovers from sedation. I intend to monitor him overnight and unless some untoward event occur, tentatively will be discharged home tomorrow. ESAU
[2016-06-30] MEDS ORDERED: LR 1,000 ML IV SCH (12:45)
[2016-06-30] MEDS ORDERED: ONDANSETRON 4MG/2ML VIAL (J2405) IV PRN (12:45)
[2016-06-30] MEDS: CEFEPIME HCL 2 GM in D5W MINI-BAG PLUS 50 ML IV SCH (12:47)
[2016-06-30 13:00] VITALS: BP 130/79
[2016-06-30] MEDS ORDERED: SLF 3 ML SYR IV PRN (14:00)
[2016-06-30] MEDS: SLF 3 ML SYR IV SCH ×2 (14:28→20:00)
[2016-06-30 16:00] VITALS: BP 99/61
[2016-06-30 20:00] VITALS: BP 124/69
[2016-06-30] MEDS: ATORVASTATIN 20 MG TAB PO SCH (20:00)
[2016-07-01] VITALS: BP 135/77
[2016-07-01] MEDS: CEFEPIME HCL 2 GM in D5W MINI-BAG PLUS 50 ML IV SCH (00:32)
[2016-07-01] MEDS: METOPROLOL TART 50 MG TAB PO SCH ×2 (00:32→06:01)
[2016-07-01 04:00] VITALS: BP 135/93
--- NOTE | 2016-07-01 05:19 | ECGEPIP ---
Stationary ECG Study [facility] Test Date: 2016-06-30 Pat Name: ALBERT KABA Department: Room: [place] [address] Gender: M Literacy Tutor: IMELDA : 1960 Requested By: Saul Diego Order Number: [id number] Reading MD: Bayron Gao Measurements Intervals [place] Rate: 140 P: MD: 0 QRS: -3 QRSD: 108 T: 70 QT: 257 QTc: 393 Interpretive Statements Atria flutter with RVR Nonspecific ST-T wave abnormalities Compared to prior tracing of 06/29/2016, atrial fibrillation is now atrial flutter and ventricular rate is faster Electronically Signed On 07-01-2016 5:18:56 EDT by Bayron Gao
--- NOTE | 2016-07-01 05:29 | ECGEPIP ---
Stationary ECG Study [facility] Test Date: 2016-06-30 Pat Name: ALBERT KABA Department: Room: [place] [address] Gender: M Administrative Office Manager: MYRIAM : 1960 Requested By: Saul Diego Order Number: [id number] Reading MD: Bayron Gao Measurements Intervals [place] Rate: 86 P: 58 AR: 157 QRS: 0 QRSD: 105 T: 27 QT: 319 QTc: 382 Interpretive Statements Normal sinus rhythm Left and probably right atrial enlargement Nonspecific ST-T wave abnormalities Compared to prior tracing of earlier this date, atrial flutter has resolved Electronically Signed On 07-01-2016 5:29:07 EDT by Bayron Gao
[2016-07-01 05:30] LABS: MEAN CORPUSCULAR HGB CONC 33.2 g/dl (32.0-36.5); MEAN CORPUSCULAR VOLUME 90.3 fl (80.0-96.0); RED CELL DISTRIBUTION WIDTH 13.9 % (11.5-14.5); WHITE BLOOD COUNT 6.9 K/mm3 (4.0-10.0)
[2016-07-01 05:44] LABS: ANION GAP 6 MEQ/L (8-16); BLOOD UREA NITROGEN 15 MG/DL (7-18); CALCIUM LEVEL 8.1 MG/DL (8.5-10.1); CARBON DIOXIDE LEVEL 29 MEQ/L (21-32); CHLORIDE LEVEL 107 MEQ/L (98-107); CREATININE FOR GFR 1.13 MG/DL (0.70-1.30); GLOMERULAR FILTRATION RATE > 60.0 (>56); GLUCOSE, FASTING 122 MG/DL (70-105); POTASSIUM SERUM 4.5 MEQ/L (3.5-5.1); SODIUM LEVEL 142 MEQ/L (136-145)
[2016-07-01] MEDS: SLF 3 ML SYR IV SCH (06:00)
[2016-07-01 06:01] VITALS: BP 135/93
[2016-07-01] MEDS: ADVAIR HFA 115/21 INHALER INH SCH (07:06)
[2016-07-01 07:10] VITALS: BP 125/79
[2016-07-01] MEDS: APIXABAN 5 MG TAB (ELIQUIS) PO SCH (07:45)
--- NOTE | 2016-07-01 08:17 | IPN ---
DATE: 07/01/2016 Mr. Roper has been feeling well. He tells me that he has not had any problems with dyspnea overnight. There also was not any distinct fever or chills and his respiration feels better. He did not have any palpitations and fortunately has been maintaining sinus rhythm. Vital signs: Blood pressure 135/93, heart rate 70s. He is afebrile. Saturation 94% on room air. His fluid balance was approximately 770 positive. Documented weight is 85.9 kg. He is alert and oriented and appropriate. His JVP is not up. Lungs are clear to auscultation without wheezing, crackles or rhonchi. Heart exam regular rhythm. I do appreciate gallop, rub or murmur. Abdomen is soft without tenderness, rebound tenderness. There is no peripheral edema. Neurologically he is intact. LABORATORY: His WBC count is down to 6.9, hemoglobin 14, hematocrit 42, platelet count 154,000. Basic metabolic panel is normal. ASSESSMENT/PLAN: Mr. Roper is a 56-year-old man who presented with chest discomfort and was found to be in atrial fibrillation with RVR. He ruled out for myocardial infarction. There were no distinctly ischemic abnormalities on his EKG. As far as the atrial fibrillation is concerned, he was anticoagulated from the get go with Eliquis. It was somewhat difficult to rate control him because he was initially quite hypotensive. Eventually after somewhat suboptimal rate control with metoprolol and digoxin, he was given several doses of flecainide in an attempt to achieve electric chemical cardioversion that was unsuccessful. Ultimately he was cardioverted yesterday. At that point, he was in atrial flutter with 2:1 conduction ventricle at 140 beats per minute. He has been maintaining sinus rhythm since. I will discharge him home on just combination of anticoagulation and metoprolol. I will set up early followup with Dr. Henriquez. And finally, he had an episode of fever and chills the night before the cardioversion and chest x-ray following day was suggestive of bilateral interstitial infiltrates. I am not quite clear how to explain these findings. He clinically does not behave like having pneumonia and I wonder whether it could represent medications side effects possibly from flecainide. Nevertheless, he feels much better. He has been afebrile. I do not believe that he needs to delay his discharge.
[2016-07-01] MEDS ORDERED: ELIQ5TAB PO (09:41)
[2016-07-01] MEDS ORDERED: LOPR1TAB6 PO (09:41)
[2016-07-01] MEDS ORDERED: LEVA750T PO (09:41)
--- NOTE | 2016-07-01 14:58 | DSES ---
DATE OF ADMISSION: 06/28/2016 DATE OF DISCHARGE: 07/01/2016 ATTENDING PHYSICIAN: Terra Trujillo MD PRIMARY CARE PHYSICIAN: Unknown. CONSULTING PHYSICIANS: Dr. Saul iDego CONDITION ON DISCHARGE: Stable. FINAL DIAGNOSIS: New onset atrial fibrillation. PROCEDURES: Cardioversion, which was done 06/30/[address] Diego. HISTORY OF PRESENT ILLNESS: The patient is a 56-year-old male with a past medical history of asthma, dyslipidemia, hypertension and irritable bowel syndrome who presented to the emergency room with complaints of shortness of breath and chest pressure. In the emergency room he was found to have atrial fibrillation with RVR and received metoprolol 5 mg times six doses as well as a digoxin loading dose and atenolol. His heart rate was better controlled, but he was hypotensive at that point. His blood pressure improved with IV fluid hydration. HOSPITAL COURSE: 1. New onset atrial fibrillation with rapid ventricular response (RVR). Presented with shortness of breath and chest discomfort. In the emergency room he received several doses of metoprolol and oral beta blockers as well as a loading dose of digoxin, however despite this he did not have any improvement. The patient had a recent history of stress test and echocardiogram done as an outpatient with Dr. Henriquez. A repeat echocardiogram was also done and Dr. Diego was consulted. Initially he tried flecainide to pharmacologically convert him, however it was unsuccessful, so subsequently the patient went for electrical cardioversion on 06/30, which was successful. The remained on metoprolol and he was put on anticoagulation with Eliquis. The patient was discharged with metoprolol 50 mg twice a day as well as Eliquis for anticoagulation. He was advised to followup with Dr. Henriquez as an outpatient. 2. Fever. Likely secondary to bilateral pneumonia, possibly secondary to healthcare associated pneumonia. Reports some shortness of breath and a febrile episode of 101.3 in the morning. Physical is unrevealing. Urinalysis was negative for any urinary tract infection. Chest x-ray revealed bilateral infiltrates suggesting equivocal pneumonia. Blood cultures were ordered. Sputum cultures were ordered. The patient was started on cefepime and upon discharge he was transitioned to Levaquin. 3. Status post acute kidney injury. Likely secondary to prerenal etiology secondary to hypotension. Creatinine has been trending down and has normalized. 4. Asthma. No evidence of exacerbation at this time. Continue with Advair and albuterol as needed. 5. Hypertension. Blood pressure remains well controlled, but was thought to be positive orthostatic initially, but was normalized. 6. Dyslipidemia. Continue with atorvastatin. 7. Deep vein thrombosis (DVT) prophylaxis. He is on full anticoagulation with Eliquis. DISCHARGE MEDICATIONS: The patient is being discharged home with the following medications: - Eliquis 5 mg by mouth twice a day - levofloxacin 750 mg by mouth daily for six days - metoprolol 50 mg by mouth twice a day Medications which were continued include: - ProAir two puffs inhaled every 4 hours as needed shortness of breath - atorvastatin 40 mg by mouth at bedtime - gabapentin 100 mg by mouth twice a day - Advair 115/21 two puffs inhaled twice a day Stopped medications include: - labetalol 200 mg by mouth daily - lisinopril 40 mg by mouth daily. DISCHARGE INSTRUCTIONS: Patient has been advised to followup with his primary care provider and his control room helper Dr. Henriquez within the next seven days. He has been advised to remain compliant with treatment plan and medications and return to the emergency room if he experiences any problems. Time spent on discharge 35 minutes. MTDD
== END 2016-07-01 11:59 | disposition home or self-care (01) | DRG 201 ==
LOC: M ED 04:13 → M ED INP 09:27 → M PCU 13:28
PROVIDERS: ADMIT Internal Medicine; ATTEND Internal Medicine
PROC: 5A2204Z Restoration of Cardiac Rhythm, Single (ICD-10-PCS; principal; 2016-06-30)
DX: I48.91 Unspecified atrial fibrillation (principal); J18.9 Pneumonia, unspecified organism; N17.9 Acute kidney failure, unspecified; I95.9 Hypotension, unspecified; I10 Essential (primary) hypertension; E78.5 Hyperlipidemia, unspecified; J45.909 Unspecified asthma, uncomplicated; Z79.899 Other long term (current) drug therapy; Z87.891 Personal history of nicotine dependence; I48.92 Unspecified atrial flutter

== ENCOUNTER 2016-07-02 07:49 | Emergency (ER) | payer BC ==
[~2016-07-02] VITALS: Ht 175.3 cm; Wt 83.9 kg
[~2016-07-02 07:49] MED LIST changes: +ADVA115A INH; +ATOR40TA PO; +ELIQ5TAB PO; +GABA-279 PO; +LABE20TAB PO; +LEVA750T PO; +LISI10TA4 PO; +LISI40TAB PO; +LOPR1TAB6 PO; +PROA1AER INH
[2016-07-02 08:42] LABS: ANION GAP 5 MEQ/L (8-16); BLOOD UREA NITROGEN 14 MG/DL (7-18); CALCIUM LEVEL 8.5 MG/DL (8.5-10.1); CARBON DIOXIDE LEVEL 33 MEQ/L (21-32); CHLORIDE LEVEL 105 MEQ/L (98-107); GLOMERULAR FILTRATION RATE > 60.0 (>56); GLUCOSE, FASTING 112 MG/DL (70-105); SODIUM LEVEL 143 MEQ/L (136-145)
[2016-07-02 08:45] LABS: BASO % 0.8 % (0.0-1.0); EOS # 0.3 K/mm3 (0.0-0.50); EOS % 4.1 % (0.0-3.0); LARGE UNSTAINED CELL # 0.1 K/mm3 (0.0-0.4); LARGE UNSTAINED CELL % 1.7 % (0.0-4.0); LYMPH # 1.1 K/mm3 (1.5-4.5); LYMPH % 15.3 % (24.0-44.0); MEAN CORPUSCULAR HEMOGLOBIN 30.4 pg (27.0-33.0); MEAN CORPUSCULAR HGB CONC 33.6 g/dl (32.0-36.5); MEAN CORPUSCULAR VOLUME 90.4 fl (80.0-96.0); MONO # 0.5 K/mm3 (0.0-0.8); NEUTROPHILS # 4.5 K/mm3 (1.8-7.7); NEUTROPHILS % 71.1 % (36.0-66.0); PLATELET COUNT, AUTOMATED 188 k/mm3 (150-450); WHITE BLOOD COUNT 6.4 K/mm3 (4.0-10.0)
[2016-07-02] MEDS ORDERED: ISOVUE-370 76% 100ML VIAL (Q9967) As Ordered ONE (09:02)
--- NOTE | 2016-07-02 09:25 | REP ---
Clinical: Chest pain. Technique: Axial contrast enhanced images from the thoracic inlet to the upper abdomen using 100 ml Isovue 370 intravenous contrast material with multiplanar re-formations. Findings: Satisfactory enhancement of the pulmonary vasculature is achieved and no filling defects are identified to suggest pulmonary embolus. Further evaluation of the mediastinum demonstrates normal thoracic aorta, heart and pericardium. The bilateral lung melvin demonstrate may very subtle ground-glass opacities suggesting early atelectasis/bronchitis. Impression: No evidence for pulmonary embolus. Findings to suggest mild bronchitis/atelectasis. Signed by Ciaran Goddard MD 07/02/2016 09:17 A
[2016-07-02] MEDS ORDERED: CLOPIDOGREL 300 MG TAB (PLAVIX) PO ONE (10:45)
[2016-07-02 11:19] VITALS: BP 160/85
--- NOTE | 2016-07-02 16:40 | ECGEPIP ---
Stationary ECG Study [facility] - ED Test Date: 2016-07-02 Pat Name: ALBERT KABA Department: Room: - Gender: M Strawhat Sizer: rn : 1960 Requested By: Baljit Walker Order Number: [id number] Reading MD: Ysabel Michael Measurements Intervals [place] Rate: 76 P: 62 DC: 153 QRS: 8 QRSD: 88 T: 10 QT: 358 QTc: 403 Interpretive Statements SINUS RHYTHM NSTTW ABNORMALITY DECREASED RATE 06/30/16 Electronically Signed On 07-02-2016 16:39:43 EDT by Ysabel Michael
== END 2016-07-02 11:23 | disposition short-term general hospital (02) ==
LOC: M ED 11:13
DX: I20.0 Unstable angina (principal); I48.91 Unspecified atrial fibrillation; I10 Essential (primary) hypertension; E78.5 Hyperlipidemia, unspecified; J45.909 Unspecified asthma, uncomplicated; G47.30 Sleep apnea, unspecified; Z87.891 Personal history of nicotine dependence; Z82.49 Family history of ischemic heart disease and other diseases of the circulatory system; Z79.02 Long term (current) use of antithrombotics/antiplatelets; Z79.899 Other long term (current) drug therapy
CPT/HCPCS: 36415; 71275; 80048; 82550; 82553; 85025; 93005; 93041; 94760; 99285; Q9967

== ENCOUNTER → 2016-07-28 | Outpatient (CLI) | payer BC ==
--- NOTE | 2016-07-31 15:08 | SLEEPCENT ---
DATE OF PROCEDURE: 07/28/2016 ORDERED BY: Kim Huerta NP Nocturnal polysomnography was performed for the titration of pressure therapy in this patient with a clinical diagnosis of obstructive sleep apnea syndrome confirmed by home testing revealing a respiratory event index of 20. For testing, the patient was fit with a [employer] Eson nasal mask of medium size. 4 cm of water pressure were applied to the circuit and the lights were extinguished. 8 hours and 31 minutes of data were reviewed. There were 398 minutes of sleep identified. Sleep latency was short at 4.5 minutes. Rapid eye movement (REM) latency prolonged at 122 minutes. Sleep architecture showed some fragmentation early, but there was improvement with optimal pressure therapy. 4-5 REM periods were appreciated. Overall sleep efficiency was 78%. The patient's EKG showed a sinus rhythm with an average heart rate of 64 beats per minute. EEG showed reasonably normal waveforms for awake and sleep. Respiratory events were best palliated with CPAP at a pressure of +7. There was some limb activity appreciated. Limb movement arousal index was borderline at 6.3. IMPRESSION: Obstructive sleep apnea syndrome (G47.33). RECOMMENDATION: Nightly use of pressure therapy with 7 cm water.
== END ==
LOC: M SLEEP 19:43
PROVIDERS: ATTEND Nurse Practitioner Adult Health
DX: G47.33 Obstructive sleep apnea (adult) (pediatric) (principal)

== ENCOUNTER → 2016-10-04 | Outpatient (REF) | payer BC ==
[~2016-10-04] MED LIST changes: +ASPI81TA85 PO; -ATOR40TA; -ATOR40TA PO; +ATOR40TA75; +ATOR40TA75 PO; +GABA-283 PO; -LEVA750T PO; +LEVA750T7 PO; -PROA1AER INH; +PROAAER10 INH; +VERE1CAP PO
== END ==
LOC: M SMT 12:52
PROVIDERS: ATTEND Nurse Practitioner Women's Health
DX: Q61.00 Congenital renal cyst, unspecified (principal); R10.9 Unspecified abdominal pain

== ENCOUNTER → 2016-10-13 | Outpatient (CLI) | payer BC ==
[~2016-10-13] MED LIST changes: +ISOVUE-370 76% 100ML VIAL (Q9967) As Ordered ONE
--- NOTE | 2016-10-13 11:36 | REP ---
CT urogram: CT abdomen and pelvis without and with IV contrast: Without oral contrast. History: Renal cyst. Flank pain. A cyst is visible on MRI study lumbar spine images from May 04, 2016 in the right mid kidney as well as on CT angiography of the chest images from July 02, 2016. CT contrast dose: 100 ml of Isovue [address] findings: Digital preliminary clinic cma radiograph is unremarkable. Right hemidiaphragm is somewhat elevated. The lung bases are clear on axial CT images. There is no evidence of pleural effusion or upper abdominal ascites. The liver and the spleen are normal in size and homogeneous in texture on pre- and postcontrast images. No gallbladder abnormality is seen. Pancreas is unremarkable. No adrenal lesion is seen. There is a cyst at the mid pole level of the right kidney which measures 3.4 cm in greatest diameter. This has a complex appearance with a central area of slightly increased attenuation on precontrast and postcontrast images. Delayed scan images demonstrate that the cystic lesion surrounds a intrarenal infundibulum and reyes. There are also several tiny cortical cysts in the upper and lower pole right kidney and in the lower and upper pole of the left kidney. No mass lesion is observed. Other than the filling in of the infundibulum and reyes enveloped by the cyst, there is no other evidence of intralesional contrast enhancement. There is some cortical atrophy in the right mid kidney overlying this cyst. Small and large intestinal bowel loops are normal in the abdomen and pelvis. Seminal vesicles, prostate and urinary bladder are intact. There are dystrophic calcifications in the prostate gland. No bony destructive lesion is seen. No abdominal wall defect is observed. There are degenerative changes in the lumbar spine. Impression: Complex benign appearing right mid renal cyst. Bosniak class II F cyst. Follow-up in 6-12 months. Signed by Andreas Tejeda MD 10/13/2016 02:02 P
== END ==
LOC: M RAD 08:49
PROVIDERS: ATTEND Nurse Practitioner Women's Health
DX: Q61.00 Congenital renal cyst, unspecified (principal); R10.9 Unspecified abdominal pain
CPT/HCPCS: 74178; Q9967

== ENCOUNTER 2016-10-16 16:17 | Emergency (ER) | payer BC ==
[~2016-10-16] VITALS: Ht 175.3 cm; Wt 87.3 kg
[~2016-10-16 16:17] MED LIST changes: -ASPI81TA85 PO; -GABA-283 PO; -ISOVUE-370 76% 100ML VIAL (Q9967) As Ordered ONE; -VERE1CAP PO
[2016-10-16] MEDS ORDERED: GABA-283 PO (16:28)
[2016-10-16] MEDS ORDERED: VERE1CAP PO (16:28)
[2016-10-16] MEDS ORDERED: ATOR40TA75 PO (16:28)
[2016-10-16] MEDS ORDERED: ACETAMINOPHEN TAB 650MG DOSE (2X325MG) PO ONE (16:45)
[2016-10-16] MEDS ORDERED: ONDANSETRON 4MG/2ML VIAL (J2405) IV ONE (16:45)
[2016-10-16] MEDS ORDERED: NS 1,000 ML IV ONE (16:45)
[2016-10-16 17:10] LABS: BASO # 0.1 K/mm3 (0.0-0.2); BASO % 1.3 % (0.0-1.0); EOS # 0.1 K/mm3 (0.0-0.50); EOS % 2.4 % (0.0-3.0); LARGE UNSTAINED CELL # 0.1 K/mm3 (0.0-0.4); LARGE UNSTAINED CELL % 2.4 % (0.0-4.0); LYMPH # 1.1 K/mm3 (1.5-4.5); LYMPH % 23.8 % (24.0-44.0); MEAN CORPUSCULAR HEMOGLOBIN 31.4 pg (27.0-33.0); MEAN CORPUSCULAR HGB CONC 34.5 g/dl (32.0-36.5); MONO # 0.5 K/mm3 (0.0-0.8); MONO % 10.2 % (0.0-5.0); NEUTROPHILS # 2.7 K/mm3 (1.8-7.7); NEUTROPHILS % 59.9 % (36.0-66.0); PLATELET COUNT, AUTOMATED 162 k/mm3 (150-450); RED CELL DISTRIBUTION WIDTH 13.6 % (11.5-14.5); WHITE BLOOD COUNT 4.6 K/mm3 (4.0-10.0)
[2016-10-16 17:21] LABS: INR 0.95
[2016-10-16 17:32] LABS: ALBUMIN 3.8 GM/DL (3.2-5.2); ALBUMIN/GLOBULIN RATIO 1.36 (1.00-1.93); ALKALINE PHOSPHATASE 38 U/L (45-117); ALT/SGPT 40 U/L (12-78); ANION GAP 7 MEQ/L (8-16); AST/SGOT 15 U/L (15-37); BILIRUBIN,DIRECT 0.1 MG/DL (0.0-0.2); BILIRUBIN,TOTAL 0.3 MG/DL (0.2-1.0); BLOOD UREA NITROGEN 21 MG/DL (7-18); CALCIUM LEVEL 8.8 MG/DL (8.5-10.1); CARBON DIOXIDE LEVEL 25 MEQ/L (21-32); CHLORIDE LEVEL 112 MEQ/L (98-107); CREATININE FOR GFR 0.95 MG/DL (0.70-1.30); FREE T4 0.63 NG/DL (0.76-1.46); GLOMERULAR FILTRATION RATE > 60.0 (>56); GLUCOSE, FASTING 91 MG/DL (70-105); POTASSIUM SERUM 4.1 MEQ/L (3.5-5.1); SODIUM LEVEL 144 MEQ/L (136-145); TOTAL PROTEIN 6.6 GM/DL (6.4-8.2)
--- NOTE | 2016-10-16 17:50 | REPUSA ---
CLINICAL HISTORY: Headaches. TECHNIQUE: Multiple axial brain CT scan sections were obtained from base to vertex without contrast a dministration. COMMENTS: The study shows normal configuration of sella turcica. There are no intra or extra-axial collections. There is no mass effect or midline shift. There is no evidence of hematoma formation. No hydrocephal us is present. No abnormal calcifications are noted. No significant abnormalities are seen either in the posterior fossa or supratentorial compartment. The sinuses and mastoid air cells are patent. IMPRESSION: No evidence of acute intracranial pathology. Thank you for your kind referral of this patient.
[2016-10-16] MEDS ORDERED: ISOVUE-370 76% 100ML VIAL (Q9967) As Ordered ONE (18:26)
[2016-10-16] MEDS ORDERED: cloNIDine 0.1 MG TAB PO ONE (20:00)
[2016-10-16 20:08] VITALS: BP 163/97
--- NOTE | 2016-10-16 20:40 | REPUSA ---
CLINICAL HISTORY: Chest pain. TECHNIQUE: CT chest with IV contrast. COMPARISON: July 02, 2016. CT CHEST WITH CONTRAST: Pulmonary arteries: Patent, without emboli. Lungs: No pneumothorax, infiltrate, masses or effusion. Heart: Normal size. No significant effusion. Aorta: Normal caliber, without aneurysm or dissection. Mediastinum and marck: No lymphadenopathy. Bony thorax: No acute findings. Limited upper abdomen: 3 cm hypodensity in the right renal midpole may represent cyst. IMPRESSION: No evidence of pulmonary embolism. No acute thoracic process.
[2016-10-16] MEDS ORDERED: ASPI81TA85 PO (22:58)
[2016-10-16 23:01] VITALS: BP 141/76
--- NOTE | 2016-10-17 06:43 | ECGEPIP ---
Stationary ECG Study [facility] - ED Test Date: 2016-10-16 Pat Name: ALBERT KABA Department: Room: - Gender: M Data Management Specialist: angel : 1960 Requested By: Mitali Patino Order Number: [id number] Reading MD: Mitali Patino Measurements Intervals [place] Rate: 71 P: 62 ND: 148 QRS: 4 QRSD: 106 T: 31 QT: 362 QTc: 396 Interpretive Statements SINUS RHYTHM NONSPECIFIC T-WAVE ABNORMALITY LEFTWARD AXIS DELAYED R WAVE PROGRESSION CW 07/02/16 RATE DECREASED Electronically Signed On 10-17-2016 6:43:01 EDT by Mitali Patino
--- NOTE | 2016-10-17 06:47 | ECGEPIP ---
Stationary ECG Study [facility] - ED Test Date: 2016-10-16 Pat Name: ALBERT KABA Department: Room: - Gender: M Rn Medical Surgical: arlette : 1960 Requested By: Mitali Patino Order Number: [id number] Reading MD: Mitali Patino Measurements Intervals [place] Rate: 64 P: 62 OR: 148 QRS: 7 QRSD: 93 T: 48 QT: 370 QTc: 382 Interpretive Statements SINUS RHYTHM NONSPECIFIC ST T WACE CHANGES LEFTWARD AXIS DELAYED R WAVE PROGRESSION CW 10/16/16 RATE DECREASED Electronically Signed On 10-17-2016 6:47:30 EDT by Mitali Patino
--- NOTE | 2016-10-17 08:39 | REP ---
PORTABLE CHEST, ONE VIEW: HISTORY: Chest pain. COMPARISON: 06/30/2016 There is elevation of the right hemidiaphragm. The lungs are clear. The heart is normal in size. The pulmonary vasculature is normal in appearance. IMPRESSION: No acute disease. Signed by Washington Mcgraw MD 10/17/2016 08:43 A
--- NOTE | 2016-10-18 09:53 | REPUSA ---
CLINICAL HISTORY: Vomiting. TECHNIQUE: CT abdomen and pelvis following administration of IV contrast. COMPARISON: October 13, 2016. CT ABDOMEN WITH CONTRAST: Lung bases: No lung base infiltrate or effusion. Liver: No intrahepatic ductal dilation. Gallbladder: Nondistended. Pancreas: No pancreatic duct dilation. Bowel loops: Nondistended. Spleen: Normal size. Adrenals: Normal size. Right kidney: Again seen is the 3.4 x 2.8 cm hypodensity in the right renal midpole, with internal se ptation, similar to prior. No stones or hydronephrosis. Left kidney: No stones or hydronephrosis. Aorta: Normal caliber. Peritoneum: No free air. Anterior abdominal wall: 3.5 cm fatty umbilical hernia. Lumbar spine: Degenerative spondylotic changes at multiple levels, more pronounced at T12-L1. CT PELVIS WITH CONTRAST: Colon: Scattered diverticula without evidence of diverticulitis. Appendix: Normal appendix is seen. Bladder: Normally distended. Mild bladder wall thickening measuring up to 6 mm. Pelvic organs: Unremarkable. Peritoneum: No fluid. Skeleton: No acute findings. IMPRESSION: 1. No acute abdominal findings. No bowel obstruction to explain vomiting. 2. Stable appearance of 3.4 cm right renal lesion, possibly representing septated cyst. Surveillance with ultrasound may be considered on an outpatient basis. 3. Small fatty umbilical hernia is unchanged. 4. Mild thickening of the bladder wall is unchanged. Correlate clinically to exclude mild cystitis.
--- NOTE | 2016-10-22 15:09 | ED PDOC ---
Post-Departure Follow-Up radiology report faxed to Ysabel Pacheco MD Oct 22, 2016 15:09
== END 2016-10-16 23:19 | disposition home or self-care (01) ==
LOC: M ED 16:17
DX: R07.89 Other chest pain (principal); I48.91 Unspecified atrial fibrillation; I10 Essential (primary) hypertension; E78.5 Hyperlipidemia, unspecified; G47.30 Sleep apnea, unspecified; D50.9 Iron deficiency anemia, unspecified; G43.909 Migraine, unspecified, not intractable, without status migrainosus; N28.1 Cyst of kidney, acquired; F17.200 Nicotine dependence, unspecified, uncomplicated; Z82.49 Family history of ischemic heart disease and other diseases of the circulatory system; K42.9 Umbilical hernia without obstruction or gangrene; Z79.82 Long term (current) use of aspirin; Z79.899 Other long term (current) drug therapy
CPT/HCPCS: 70450; 71010; 71275; 74177; 80048; 80076; 82550; 82553; 83690; 84439; 84443; 85025; 85610; 85730; 93005; 93041; 94760; 96374; 99285; J2405; Q9967

== ENCOUNTER → 2016-10-18 | Outpatient (CLI) | payer BC ==
[~2016-10-18] MED LIST changes: +ASPI81TA85 PO; +GABA-283 PO; +VERE1CAP PO
== END ==
LOC: M SMT 11:46
PROVIDERS: ATTEND Nurse Practitioner Women's Health
DX: Z12.5 Encounter for screening for malignant neoplasm of prostate (principal)
CPT/HCPCS: 36415; G0103

== ENCOUNTER 2017-03-20 05:34 | Emergency (ER) | payer BC ==
[~2017-03-20] VITALS: Ht 175.3 cm; Wt 81.8 kg
[2017-03-20] MEDS ORDERED: ASPIRIN 81 MG CHEW TABLET PO ONE (05:45)
[2017-03-20] MEDS ORDERED: MORPHINE 2 MG/ML 1ML SYRINGE As Ordered ONE (06:07)
[2017-03-20] MEDS ORDERED: MORPHINE 2 MG/ML 1ML SYRINGE IV ONE (06:15)
[2017-03-20] MEDS ORDERED: ONDANSETRON 4MG/2ML VIAL (J2405) IV ONE (06:15)
[2017-03-20 06:17] LABS: BASO % 0.5 % (0.0-1.0); EOS # 0.1 10^3/uL (0.0-0.50); EOS % 0.9 % (0.0-3.0); IMMATURE GRANULOCYTE % 0.4 % (0-0); LYMPH % 12.9 % (24.0-44.0); MEAN CORPUSCULAR HEMOGLOBIN 30.8 pg (27.0-33.0); MEAN CORPUSCULAR HGB CONC 33.8 g/dl (32.0-36.5); MEAN CORPUSCULAR VOLUME 91.1 fl (80.0-96.0); MONO # 0.7 10^3/uL (0.0-0.8); MONO % 8.2 % (0.0-5.0); NEUTROPHILS # 6.1 10^3/uL (1.8-7.7); NEUTROPHILS % 77.1 % (36.0-66.0); PLATELET COUNT, AUTOMATED 195 10^3/uL (150-450); RED CELL DISTRIBUTION WIDTH 13.2 % (11.5-14.5); WHITE BLOOD COUNT 7.9 10^3/uL (4.0-10.0)
[2017-03-20 06:29] LABS: INR 0.98
[2017-03-20 06:43] LABS: ALBUMIN 4.2 GM/DL (3.2-5.2); ALKALINE PHOSPHATASE 41 U/L (45-117); ALT/SGPT 68 U/L (12-78); AST/SGOT 55 U/L (7-37); BILIRUBIN,DIRECT 0.2 MG/DL (0.0-0.2); BILIRUBIN,TOTAL 0.7 MG/DL (0.2-1.0); BLOOD UREA NITROGEN 23 MG/DL (7-18); CALCIUM LEVEL 8.6 MG/DL (8.5-10.1); CARBON DIOXIDE LEVEL 23 MEQ/L (21-32); CHLORIDE LEVEL 110 MEQ/L (98-107); CREATININE FOR GFR 0.98 MG/DL (0.70-1.30); GLUCOSE, FASTING 87 MG/DL (70-105); SODIUM LEVEL 143 MEQ/L (136-145); TOTAL PROTEIN 7.2 GM/DL (6.4-8.2)
[2017-03-20] MEDS ORDERED: NS 1,000 ML IV ONE (07:15)
[2017-03-20 07:18] LABS: ANION GAP 10 MEQ/L (8-16)
--- NOTE | 2017-03-20 07:54 | REP ---
Portable chest, 06:01 a.m., single frontal view, patient sitting: Comparison is 2016. The lung melvin are clear. Cardiac size is normal. The marck, mediastinum, and bony thorax are unremarkable. There is chronic elevation of the right hemidiaphragm, unchanged. Impression: There are no acute cardiopulmonary findings. Signed by Luciano Baltazar MD 03/20/2017 07:46 A
[2017-03-20 11:32] VITALS: BP 147/80
--- NOTE | 2017-03-20 19:35 | ECGEPIP ---
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
== END 2017-03-20 11:39 | disposition home or self-care (01) ==
LOC: M ED 05:34
DX: R07.9 Chest pain, unspecified (principal); R42 Dizziness and giddiness; I10 Essential (primary) hypertension; E78.5 Hyperlipidemia, unspecified; J45.909 Unspecified asthma, uncomplicated; K58.9 Irritable bowel syndrome, unspecified; G47.30 Sleep apnea, unspecified; M54.9 Dorsalgia, unspecified; G43.909 Migraine, unspecified, not intractable, without status migrainosus; M51.9 Unspecified thoracic, thoracolumbar and lumbosacral intervertebral disc disorder; Z79.82 Long term (current) use of aspirin; Z79.899 Other long term (current) drug therapy
CPT/HCPCS: 71010; 80048; 80076; 82550; 82553; 83690; 83880; 85025; 85610; 93005; 93041; 94760; 96361; 96374; 96375; 99285; J2405

== ENCOUNTER 2017-05-19 16:36 | Emergency (ER) | payer BC ==
[2017-05-19] MEDS: MORPHINE 4 MG/ML 1ML VIAL (J2270) IV ×2 (18:27)
[2017-05-19 18:55] LABS: BASO # 0.1 10^3/uL (0.0-0.2); BASO % 1.4 % (0.0-1.0); EOS # 0.4 10^3/uL (0.0-0.50); EOS % 5.9 % (0.0-3.0); HEMATOCRIT 45.7 % (42.0-52.0); IMMATURE GRANULOCYTE % 0.3 % (0-3.0); LYMPH # 1.3 10^3/uL (1.5-4.5); LYMPH % 20.5 % (24.0-44.0); MEAN CORPUSCULAR HEMOGLOBIN 30.4 pg (27.0-33.0); MEAN CORPUSCULAR HGB CONC 32.8 g/dl (32.0-36.5); MEAN CORPUSCULAR VOLUME 92.5 fl (80.0-96.0); MONO # 0.7 10^3/uL (0.0-0.8); MONO % 10.9 % (0.0-5.0); NEUTROPHILS # 3.9 10^3/uL (1.8-7.7); PLATELET COUNT, AUTOMATED 245 10^3/uL (150-450); RED BLOOD COUNT 4.94 10^6/uL (4.30-6.10); RED CELL DISTRIBUTION WIDTH 13.7 % (11.5-14.5); WHITE BLOOD COUNT 6.4 10^3/uL (4.0-10.0)
[2017-05-19 19:09] LABS: ANION GAP 7 MEQ/L (8-16); BLOOD UREA NITROGEN 19 MG/DL (7-18); CALCIUM LEVEL 8.3 MG/DL (8.5-10.1); CARBON DIOXIDE LEVEL 27 MEQ/L (21-32); CHLORIDE LEVEL 106 MEQ/L (98-107); CREATININE FOR GFR 1.04 MG/DL (0.70-1.30); GLOMERULAR FILTRATION RATE > 60.0 (>56); GLUCOSE, FASTING 125 MG/DL (70-100); INR 1.03; POTASSIUM SERUM 3.7 MEQ/L (3.5-5.1); PROTHROMBIN TIME 13.6 SECONDS (12.4-14.5); SODIUM LEVEL 140 MEQ/L (136-145)
[2017-05-19 19:10] LABS: PARTIAL THROMBOPLASTIN TIME 30.5 SECONDS (26.8-37.9)
[2017-05-19] MEDS ORDERED: ISOVUE-370 76% 100ML VIAL (Q9967) As Ordered ×2 (19:32)
[2017-05-19] MEDS ORDERED: MORPHINE 4 MG/ML 1ML VIAL (J2270) IV ×2 (20:00)
== END 2017-05-19 22:14 | disposition home or self-care (01) ==
LOC: M ED 16:36
DX: I48.91 Unspecified atrial fibrillation (principal); I10 Essential (primary) hypertension; G43.909 Migraine, unspecified, not intractable, without status migrainosus; J45.909 Unspecified asthma, uncomplicated; G47.30 Sleep apnea, unspecified; K58.9 Irritable bowel syndrome, unspecified; M51.9 Unspecified thoracic, thoracolumbar and lumbosacral intervertebral disc disorder; Z87.891 Personal history of nicotine dependence; Z79.82 Long term (current) use of aspirin; Z79.899 Other long term (current) drug therapy
CPT/HCPCS: J2270

== ENCOUNTER → 2017-07-29 | Outpatient (CLI) | payer BC | LOC: M RAD 12:38 | DX: R06.02 Shortness of breath (principal); R91.8 Other nonspecific abnormal finding of lung field | CPT/HCPCS: 76000 ==

== ENCOUNTER → 2017-09-02 | Outpatient (CLI) | payer BC ==
[~2017-09-02] MED LIST changes: -ADVA115A INH; -ALBU83IN; -ASPI81TA85 PO; -ATOR40TA75; -ATOR40TA75 PO; -ATRO0.063; -ELIQ5TAB PO; -FLUT1SPR2; -GABA-279; -GABA-279 PO; -GABA-283 PO; +ISOVUE-370 76% 100ML VIAL (Q9967) As Ordered; -LABE20TAB; -LABE20TAB PO; -LEVA750T7 PO; -LISI-538; -LISI10TA4 PO; -LISI40TAB; -LISI40TAB PO; -LOPR1TAB6 PO; -PRED20TA PO; -PROAAER10 INH; -VERE1CAP PO
== END ==
LOC: M RAD 10:11
DX: J98.6 Disorders of diaphragm (principal)

== ENCOUNTER 2017-09-20 17:24 | Emergency (ER) | payer BC ==
[2017-09-20 18:35] LABS: BASO # 0.1 10^3/uL (0.0-0.2); BASO % 0.6 % (0.0-1.0); EOS # 0.2 10^3/uL (0.0-0.50); EOS % 2.5 % (0.0-3.0); HEMATOCRIT 42.6 % (42.0-52.0); HEMOGLOBIN 14.3 g/dl (13.5-17.5); IMMATURE GRANULOCYTE % 0.4 % (0-3.0); LYMPH # 1.6 10^3/uL (1.5-4.5); LYMPH % 17.9 % (24.0-44.0); MEAN CORPUSCULAR HEMOGLOBIN 29.4 pg (27.0-33.0); MEAN CORPUSCULAR HGB CONC 33.6 g/dl (32.0-36.5); MEAN CORPUSCULAR VOLUME 87.7 fl (80.0-96.0); MONO # 0.8 10^3/uL (0.0-0.8); MONO % 8.8 % (0.0-5.0); NEUTROPHILS # 6.3 10^3/uL (1.8-7.7); NEUTROPHILS % 69.8 % (36.0-66.0); PLATELET COUNT, AUTOMATED 197 10^3/uL (150-450); RED BLOOD COUNT 4.86 10^6/uL (4.30-6.10); RED CELL DISTRIBUTION WIDTH 14.6 % (11.5-14.5); WHITE BLOOD COUNT 9.1 10^3/uL (4.0-10.0)
[2017-09-20 18:47] LABS: ALBUMIN 3.6 GM/DL (3.2-5.2); ALBUMIN/GLOBULIN RATIO 1.09 (1.00-1.93); ALKALINE PHOSPHATASE 41 U/L (45-117); ALT/SGPT 49 U/L (12-78); ANION GAP 8 MEQ/L (8-16); AST/SGOT 22 U/L (7-37); BILIRUBIN,DIRECT 0.1 MG/DL (0.0-0.2); BILIRUBIN,TOTAL 0.5 MG/DL (0.2-1.0); BLOOD UREA NITROGEN 22 MG/DL (7-18); CALCIUM LEVEL 7.9 MG/DL (8.5-10.1); CARBON DIOXIDE LEVEL 27 MEQ/L (21-32); CHLORIDE LEVEL 107 MEQ/L (98-107); CPK CREATINE PHOSPHOKINASE 336 U/L (39-308); CREATININE FOR GFR 1.29 MG/DL (0.70-1.30); GLOMERULAR FILTRATION RATE > 60.0 (>56); GLUCOSE, FASTING 94 MG/DL (70-100); LIPASE 91 U/L (73-393); POTASSIUM SERUM 3.9 MEQ/L (3.5-5.1); SODIUM LEVEL 142 MEQ/L (136-145); TOTAL PROTEIN 6.9 GM/DL (6.4-8.2); TROPONIN I < 0.02 NG/ML (< 0.10)
[2017-09-20 18:48] LABS: CK-MB VALUE MASS 4.1 NG/ML (<3.6); MB/CK RELATIVE INDEX 1.22 (< OR =4)
[2017-09-20 18:54] LABS: INR 1.17; PROTHROMBIN TIME 15.1 SECONDS (12.4-14.5)
[2017-09-20] MEDS: ASPIRIN 81 MG CHEW TABLET PO (19:05)
[2017-09-20] MEDS ORDERED: ACETAMINOPHEN 325 MG TAB As Ordered (19:44)
[2017-09-20] MEDS: ACETAMINOPHEN TAB 650MG DOSE (2X325MG) PO (19:45)
[2017-09-20 23:22] LABS: CK-MB VALUE MASS 2.9 NG/ML (<3.6); CPK CREATINE PHOSPHOKINASE 258 U/L (39-308); MB/CK RELATIVE INDEX 1.12 (< OR =4); TROPONIN I < 0.02 NG/ML (< 0.10)
== END 2017-09-21 00:07 | disposition home or self-care (01) ==
LOC: M ED 09-21 00:07
DX: R07.89 Other chest pain (principal); I49.8 Other specified cardiac arrhythmias; I48.91 Unspecified atrial fibrillation; I10 Essential (primary) hypertension; J45.909 Unspecified asthma, uncomplicated; Z95.5 Presence of coronary angioplasty implant and graft; Z79.01 Long term (current) use of anticoagulants; Z79.899 Other long term (current) drug therapy
CPT/HCPCS: 71045

== ENCOUNTER → 2018-01-09 | Outpatient (CLI) | payer BC | LOC: M PAIN 14:15 | DX: M54.16 Radiculopathy, lumbar region (principal); M54.41 Lumbago with sciatica, right side; G89.29 Other chronic pain; J45.909 Unspecified asthma, uncomplicated; I10 Essential (primary) hypertension; K42.9 Umbilical hernia without obstruction or gangrene; Z79.01 Long term (current) use of anticoagulants; Z79.899 Other long term (current) drug therapy; Z86.79 Personal history of other diseases of the circulatory system | CPT/HCPCS: G0463 ==

== ENCOUNTER 2018-01-13 04:00 | Emergency (ER) | payer BC ==
[2018-01-13] MEDS: methylPREDNISolone INJ 125 MG/2 ML VIAL (J2930) IV (05:00)
[2018-01-13] MEDS: diphenhydrAMINE INJ 50MG/ML VIAL (J1200) IV ×2 (05:01→06:15)
[2018-01-13] MEDS: NS 1,000 ML IV (05:01)
[2018-01-13] MEDS: METOCLOPRAMIDE INJ 10MG/2ML VIAL (J2765) IV ×2 (05:01→06:15)
[2018-01-13 05:24] LABS: BASO % 0.4 % (0.0-1.0); EOS # 0.1 10^3/uL (0.0-0.50); EOS % 1.6 % (0.0-3.0); HEMATOCRIT 41.1 % (42.0-52.0); HEMOGLOBIN 13.8 g/dl (13.5-17.5); IMMATURE GRANULOCYTE % 0.6 % (0-3.0); LYMPH # 0.9 10^3/uL (1.5-4.5); LYMPH % 10.1 % (24.0-44.0); MEAN CORPUSCULAR HEMOGLOBIN 30.1 pg (27.0-33.0); MEAN CORPUSCULAR HGB CONC 33.6 g/dl (32.0-36.5); MEAN CORPUSCULAR VOLUME 89.7 fl (80.0-96.0); MONO # 0.6 10^3/uL (0.0-0.8); MONO % 6.2 % (0.0-5.0); NEUTROPHILS # 7.3 10^3/uL (1.8-7.7); NEUTROPHILS % 81.1 % (36.0-66.0); PLATELET COUNT, AUTOMATED 152 10^3/uL (150-450); RED BLOOD COUNT 4.58 10^6/uL (4.30-6.10)
[2018-01-13 05:34] LABS: INR 0.84; PROTHROMBIN TIME 11.6 SECONDS (12.1-14.4)
[2018-01-13 05:35] LABS: PARTIAL THROMBOPLASTIN TIME 21.3 SECONDS (25.4-37.6)
[2018-01-13 05:52] LABS: ANION GAP 8 MEQ/L (8-16); BLOOD UREA NITROGEN 19 MG/DL (7-18); CARBON DIOXIDE LEVEL 25 MEQ/L (21-32); CHLORIDE LEVEL 109 MEQ/L (98-107); CREATININE FOR GFR 0.77 MG/DL (0.70-1.30); GLOMERULAR FILTRATION RATE > 60.0 (>56); GLUCOSE, FASTING 126 MG/DL (70-100); POTASSIUM SERUM 4.1 MEQ/L (3.5-5.1); SODIUM LEVEL 142 MEQ/L (136-145)
== END 2018-01-13 08:01 | disposition home or self-care (01) ==
LOC: M ED 04:00
DX: G43.909 Migraine, unspecified, not intractable, without status migrainosus (principal); Z79.899 Other long term (current) drug therapy; Z79.01 Long term (current) use of anticoagulants
CPT/HCPCS: J1200

== ENCOUNTER → 2018-02-07 | Outpatient (CLI) | payer BC ==
[~2018-02-07] MED LIST changes: -ISOVUE-370 76% 100ML VIAL (Q9967) As Ordered; +ISOVUE-M 300 61% 15ML VIAL (Q9967) As Ordered; +LIDOCAINE 1% SDV INJ 30 ML VIAL As Ordered; +diazePAM 5 MG TAB As Ordered; +methylPREDNISolone SUSP 40 MG/ML (DEPO-medrol) VIAL (J1030) As Ordered; +oxyCODONE 5MG TAB As Ordered
== END ==
LOC: M PAIN 11:45
DX: G89.29 Other chronic pain (principal); M51.17 Intervertebral disc disorders with radiculopathy, lumbosacral region; J45.909 Unspecified asthma, uncomplicated; I10 Essential (primary) hypertension; K42.9 Umbilical hernia without obstruction or gangrene; I48.91 Unspecified atrial fibrillation; Z79.01 Long term (current) use of anticoagulants; Z79.899 Other long term (current) drug therapy; Z87.891 Personal history of nicotine dependence
CPT/HCPCS: J1030

== ENCOUNTER → 2018-02-27 | Outpatient (CLI) | payer BC ==
[2018-02-27 12:35] LABS: ANION GAP 8 MEQ/L (8-16); BLOOD UREA NITROGEN 9 MG/DL (7-18); CALCIUM LEVEL 8.8 MG/DL (8.5-10.1); CARBON DIOXIDE LEVEL 27 MEQ/L (21-32); CHLORIDE LEVEL 108 MEQ/L (98-107); CREATININE FOR GFR 0.88 MG/DL (0.70-1.30); GLOMERULAR FILTRATION RATE > 60.0 (>56); GLUCOSE, FASTING 97 MG/DL (70-100); POTASSIUM SERUM 3.9 MEQ/L (3.5-5.1); PSA SCREENING 0.9 NG/ML (< 4.0); SODIUM LEVEL 143 MEQ/L (136-145)
== END ==
LOC: M LAB 10:24
DX: Z12.5 Encounter for screening for malignant neoplasm of prostate (principal); Q61.00 Congenital renal cyst, unspecified
CPT/HCPCS: 80048

== ENCOUNTER → 2018-03-02 | Outpatient (CLI) | payer BC ==
[~2018-03-02] MED LIST changes: +ISOVUE-370 76% 100ML VIAL (Q9967) As Ordered; -ISOVUE-M 300 61% 15ML VIAL (Q9967) As Ordered; -LIDOCAINE 1% SDV INJ 30 ML VIAL As Ordered; -diazePAM 5 MG TAB As Ordered; -methylPREDNISolone SUSP 40 MG/ML (DEPO-medrol) VIAL (J1030) As Ordered; -oxyCODONE 5MG TAB As Ordered
== END ==
LOC: M RAD 15:25
DX: Q61.00 Congenital renal cyst, unspecified (principal); K57.30 Diverticulosis of large intestine without perforation or abscess without bleeding; K42.9 Umbilical hernia without obstruction or gangrene
CPT/HCPCS: Q9967

== ENCOUNTER → 2018-03-02 | Outpatient (CLI) | payer BC | LOC: M SMT 09:28 | DX: J98.6 Disorders of diaphragm (principal) | CPT/HCPCS: 71046 ==

== ENCOUNTER → 2018-04-19 | Outpatient (CLI) | payer BC ==
[~2018-04-19] MED LIST changes: +ADVA115A INH; +ALBU83IN; +AMLO2.5T3; +ASPI81TA85 PO; +ATOR40TA75; +ATOR40TA75 PO; +ATRO0.063; +AUGM500T34 PO; +ELIQ5TAB PO; +FLUT1SPR2; +GABA-1171; +GABA-1171 PO; +GABA-845 PO; -ISOVUE-370 76% 100ML VIAL (Q9967) As Ordered; +LABE20TAB; +LABE20TAB PO; +LEVA750T7 PO; +LISI-538; +LISI10TA4 PO; +LISI40TA; +LISI40TA PO; +LOPR1TAB6 PO; +NORCOTAB PO; +PRED20TA PO; +PROAAER10 INH; +TIZANIDINE; +VERE1CAP PO
--- NOTE | 2018-05-04 01:30 | ECWPNPC ---
PATIENT NAME: ALBERT KABA : 1960 GENDER: MALE VISIT DATE: 04/19/2018 DISCHARGE DATE: 04/19/18 1014 VISIT LOCKED DATE TIME: PHYSICIAN: ADELA ALSTON RESOURCE: ADELA ALSTON REASON FOR APPOINTMENT 1. POST LESI PT OF SW HISTORY OF PRESENT ILLNESS HISTORY OF PRESENT ILLNESS: HERE FOR POST PROCEDURE F/U OF CHRONIC LOW BACK PAIN WITH RIGHT LEG RADICULAR SYMPTOMS.HAD L5/S1 LESI ON 02-19.REPORTING >50%IMPROVEMENT THAT CONTINUES TODAY.RATING PAIN VAS 1/10. PAIN THE PATIENT DESCRIBES THE PAIN... FALL RISK SCREENING: SCREENING :NO FALLS IN THE PAST YEAR CURRENT MEDICATIONS TAKING ATORVASTATIN CALCIUM 10 MG TABLET 1 TABLET ORALLY ONCE A DAY, NOTES: 02/07/181699 TAKING ATROVENT HFA 17 MCG/ACT AEROSOL SOLUTION 2 PUFFS INHALATION FOUR TIMES A DAY, NOTES: 02/07/181699 TAKING ALBUTEROL 90 MCG/ACT AEROSOL SOLUTION INHALATION , NOTES: 02/07/181699 TAKING VERAPAMIL HCL 180 MG (CO) TABLET EXTENDED RELEASE ORALLY BID, NOTES: 829 TAKING ELIQUIS 5 MG TABLET ORALLY BID, NOTES: 02/03/18 170 TAKING ADVAIR DISKUS 100-50 MCG/DOSE AEROSOL POWDER BREATH ACTIVATED 1 PUFF INHALATION TWICE A DAY, NOTES: 08 TAKING NORVASC 2.5 MG TABLET 1 TABLET ORALLY ONCE A DAY, NOTES: 08 TAKING TIZANIDINE HCL 2 MG TABLET 1 TABLET NEEDED ORALLY THREE TIMES A DAY, NOTES: 0830 TAKING GABAPENTIN 600 MG TABLET 1 CAP ORALLY BID, NOTES: 0830 TAKING BACLOFEN 10 MG TABLET 1 TABLET WITH FOOD OR MILK ORALLY THREE TIMES A DAY, NOTES: 0830 NOT-TAKING KETOROLAC TROMETHAMINE 10 MG TABLET 1 TABLET WITH FOOD OR MILK NEEDED ORALLY EVERY 8 HRS NOT-TAKING LISINOPRIL 40 MG TABLET ORALLY NOT-TAKING POLYTRIM 24809-6.1 UNIT/ML SOLUTION 1 DROP INTO AFFECTED EYE OPHTHALMIC FOUR TIMES A DAY MEDICATION LIST REVIEWED AND RECONCILED WITH THE PATIENT PAST MEDICAL HISTORY UMBILICAL HERNIA ASTHMA IBS PROSTATE ISSUES HIGH BLOOD PRESSUE HERNIATED 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 SURGICAL HISTORY CONVERSION FOR AFIB FAMILY HISTORY FATHER: 69 YRS, ASTHMA, HIGH BLOOD PRESSURE, DIABETES MELLITUS MOTHER: 70 YRS, ASTHMA, HYPERTENSION, DIABETES MELLITUS 1 BROTHER(S) , 1 SISTER(S) . 1DAUGHTER(S) . FATHER HAD KIDNEY STONESHALF BROTHER(60) AND HALF SISTER(63) FROM DIABETESDAUGHTER AT 22 MONTHS OLD - DEFECT HEART AND BORN WITH NO STERNUM. SOCIAL HISTORY GENERAL: TOBACCO USE ARE YOU A:FORMER SMOKER HOW LONG HAS IT BEEN SINCE YOU LAST SMOKED?1-5 YEARS ALCOHOL SCREENING DID YOU HAVE A DRINK CONTAINING ALCOHOL IN THE PAST YEAR?YES HOW OFTEN DID YOU HAVE A DRINK CONTAINING ALCOHOL IN THE PAST YEAR?TWO TO FOUR TIMES A MONTH (2 POINTS) HOW MANY DRINKS DID YOU HAVE ON A TYPICAL DAY WHEN YOU WERE DRINKING IN THE PAST YEAR?1 OR 2 (0 POINTS) HOW OFTEN DID YOU HAVE SIX OR MORE DRINKS ON ONE OCCASION IN THE PAST YEAR?LESS THAN MONTHLY (1 POINT) POINTS3 INTERPRETATIONNEGATIVE RECREATIONAL DRUG USE DENIES. CAFFEINE 1-2/DAY. HIV / HEP-C SCREENING HIV TEST OFFERED TO PATIENT:YES DATE OFFERED:06/08/2016 TEST ACCEPTED:NO REASON:PATIENT DECLINED HEP-C TEST OFFERED TO PATIENT:YES DATE OFFERED:06/08/2016 TEST ACCEPTED:NO REASON:PATIENT DECLINED JAINISM JAINISM NO SIKHISM BELIEFS THAT WOULD IMPACT HEALTH CARE. LANGUAGE LANGUAGES SPOKEN:VIETNAMESE LEARNING BARRIERS / SPECIAL NEEDS BARRIERS TO LEARNING?NO HEARING IMPAIRED?NO VISION IMPAIRED?YES :CORRECTIVE LENSES COGNITIVELY IMPAIRED?NO READINESS TO LEARN?YES LEARNING PREFERENCES?NO LEARNING CAPABILITIES PRESENT?YES EMOTIONAL BARRIERS?NO SPECIAL DEVICES?NO AGRICULTURAL RESEARCH ENGINEER NEEDED?NO OCCUPATION: [employer]. DIET: REGULAR. EXERCISE: LIFT WEIGHTS, CARDIO. MARITAL STATUS: . PAIN CLINIC PFS, CLERGY, PUBLIC HEALTH REFERRALS PFS REFERRAL NEEDED?NO CLERGY REFERRAL NEEDED?NO PUBLIC HEALTH REFERRAL NEEDED?NO HAS THE PATIENT BEEN EDUCATED REGARDING HIS/HER PLAN OF CARE?YES HAS THE PATIENT BEEN EDUCATED REGARDING PAIN, THE RISK FOR PAIN, THE IMPORTANCE OF EFFECTIVE PAIN MANAGEMENT, AND THE PAIN ASSESSMENT PROCESS?YES ADVANCE DIRECTIVE ADVANCE DIRECTIVE DISCUSSED WITH PATIENT:YES HAYDEN - BILL ALARCON REVIEWED WITH PATIENT 02/07/18 1402 JS REVIEWED WITH PATIENT 04/19/18 0917 LAS. HOSPITALIZATION/MAJOR DIAGNOSTIC PROCEDURE A-2016 REVIEW OF SYSTEMS REVIEWED BY: PROVIDER: ADELA KABA . CONSTITUTIONAL: ANY CHANGE IN YOUR MEDICAL CONDITION? NO . CHILLS NO . FEVER NO . INFECTION: DO YOU HAVE NEW INFECTIONS? NO . DO YOU HAVE HISTORY OF MRSA? NO . MUSCULOSKELETAL: ANY NEW PATTERNS OF PAIN OR NUMBNESS? NO . GASTROENTEROLOGY: ANY NEW CHANGE IN BOWEL CONTROL? NO . GENITOURINARY: ANY NEW CHANGE IN BLADDER CONTROL? NO . IS THERE A CHANCE YOU COULD BE ? NO . HEMATOLOGY/LYMPH: DO YOU TAKE ANY BLOOD THINNERS? (FOR EXAMPLE- COUMADIN, PLAVIX, AGGRENOX, PLATEL, PRADAXA, OR XARELTO) YESELIQUIS . WHEN WAS YOUR LAST DOSE? DATE: TIME: . NEUROLOGY: HAVE YOU FALLEN IN THE PAST 12 MONTHS? NO . ANY NEW EXTREMITY NUMBNESS OR WEAKNESS? NO . CARDIOLOGY: DO YOU HAVE A PACEMAKER OR DEFIBRILLATOR? NO . RESPIRATORY: HAVE YOU BEEN SICK IN THE PAST WEEK? NO . FEVER NO . FLU LIKE SYMPTOMS? NO . COUGH NO . INTEGUMENTARY: DO YOU HAVE ANY RASHES OR OPEN SORES? NO . ALLERGIC/IMMUNO: ARE YOU ALLERGIC TO IV DYE? NO . ANY NEW ALLERGIES? NO . PSYCHIATRIC: DO YOU HAVE THOUGHTS OF HURTING YOURSELF OR SOMEONE ELSE? NO . ARE YOU ABUSED, NEGLECTED, OR IN AN UNSAFE ENVIRONMENT? NO . ENDOCRINOLOGY: ARE YOU DIABETIC? NO . OTHER: DO YOU NEED ANY PRESCRIPTIONS? NO . IF YES, PLEASE LIST: ____ . ANY NEW PROBLEMS WITH YOUR MEDICATIONS? NO . WHEN DID YOU LAST EAT? ____ . WHEN DID YOU LAST DRINK? ____ . WHAT DID YOU LAST DRINK? ____ . NAME OF PERSON DRIVING YOU HOME? ____ . DO YOU HAVE ANY OTHER QUESTIONS OR CONCERNS NO . VITAL SIGNS WT 205.0 LBS, HT 69 IN, BMI 30.27 INDEX, BP 152/89 MM HG, HR 69 /MIN, RR 18 /MIN, TEMP 98.1 F, OXYGEN SAT % 99, SAFE IN ENV? (Y/N) YES, NA INITIALS MP 0938, REVIEWED BY: MICHELLE. EXAMINATION GENERAL EXAMINATION: GENERAL APPEARANCE:AWAKE,ALERT ,PLEAASANT . PSYCHAFFECT NORMAL . LUNGS:LUNG GOETZ ARE CLEAR TO AUSCULTATION BILATERALLY. GOOD MOVEMENT OF AIR . HEART:S1, S2 IN A REGULAR RATE AND RHYTHM. NO SIGNIFICANT MURMURS, RUBS OR GALLOPS NOTED . ASSESSMENTS INTERVERTEBRAL DISC DISORDER WITH RADICULOPATHY OF LUMBOSACRAL REGION - M51.17 (PRIMARY) TREATMENT INTERVERTEBRAL DISC DISORDER WITH RADICULOPATHY OF LUMBOSACRAL REGION NOTES: PATIENT WAS ADVISED TO START A WALKING PROGRAM TO STRENGTHEN LUMBAR PARASPINAL MUSCLES AND IMPROVE MOBILITY. THEY WERE ADVISED THAT THIS WILL IMPROVE WEIGHT LOSS AND ALSO DEPRESSION/FIBROMYALGIA SYMPTOMS. ADVISED TO WALK 10 MINUTES EVERY OTHER DAY ON A FLAT SURFACE. EMPHASIZED THE IMPORTANCE OF DOING THIS CONSISTANTLY AND NOT SPORATICALLY TO AVOID INJURY. STRONG ADVISED NOT TO DO MORE THAN 10 MINUTES EVERY OTHER DAY FOR THE FIRST 4 WEEKS. PROCEDURE CODES FA211 ESTABILISHED PATIENT [facility] CHARGE DISPOSITION & COMMUNICATION FOLLOW UP 3 MONTHS ELECTRONICALLY SIGNED BY SENDY SAXENA ON 05/03/2018 AT 08:51 AM EST DISCLAIMER : THIS IS A VISIT SUMMARY EXTRACTED FROM THE [employer] CHART. IT IS NOT A COPY OF THE [employer] PROGRESS NOTE. ESAU
== END ==
LOC: M PAIN 09:30
PROVIDERS: ATTEND Nurse Practitioner Family
DX: M51.17 Intervertebral disc disorders with radiculopathy, lumbosacral region (principal); G89.29 Other chronic pain; J45.909 Unspecified asthma, uncomplicated; I10 Essential (primary) hypertension; Z79.01 Long term (current) use of anticoagulants; Z79.899 Other long term (current) drug therapy; Z86.79 Personal history of other diseases of the circulatory system; Z87.891 Personal history of nicotine dependence

== ENCOUNTER 2018-06-11 09:07 | Emergency (ER) | payer BC ==
[~2018-06-11] VITALS: Ht 177.8 cm; Wt 90.9 kg
[2018-06-11 09:32] LABS: BASO % 0.6 % (0.0-1.0); EOS # 0.2 10^3/uL (0.0-0.50); EOS % 2.9 % (0.0-3.0); HEMATOCRIT 42.5 % (42.0-52.0); HEMOGLOBIN 14.1 g/dl (13.5-17.5); LYMPH # 1.1 10^3/uL (1.5-4.5); LYMPH % 21.3 % (24.0-44.0); MEAN CORPUSCULAR HEMOGLOBIN 30.4 pg (27.0-33.0); MEAN CORPUSCULAR HGB CONC 33.2 g/dl (32.0-36.5); MEAN CORPUSCULAR VOLUME 91.6 fl (80.0-96.0); MONO # 0.5 10^3/uL (0.0-0.8); MONO % 9.5 % (0.0-5.0); NEUTROPHILS # 3.4 10^3/uL (1.8-7.7); NEUTROPHILS % 65.3 % (36.0-66.0); PLATELET COUNT, AUTOMATED 186 10^3/uL (150-450); RED BLOOD COUNT 4.64 10^6/uL (4.30-6.10); WHITE BLOOD COUNT 5.3 10^3/uL (4.0-10.0)
[2018-06-11 09:43] LABS: INR 0.93; PROTHROMBIN TIME 12.6 SECONDS (12.1-14.4)
[2018-06-11 09:44] LABS: PARTIAL THROMBOPLASTIN TIME 30.8 SECONDS (25.4-37.6)
--- NOTE | 2018-06-11 10:19 | REP ---
PA and lateral chest: Comparison is 03/02/2018. The lung melvin are clear. The cardiac size is normal. The marck, mediastinum, and skeletal structures are unremarkable. Impression: Negative PA and lateral chest. There is no interval change. Electronically Signed by Luciano Baltazar MD 06/11/2018 10:11 A
[2018-06-11 10:44] LABS: ALBUMIN 3.7 GM/DL (3.2-5.2); ALT/SGPT 41 U/L (12-78); BILIRUBIN,DIRECT < 0.1 MG/DL (0.0-0.2); BILIRUBIN,TOTAL 0.3 MG/DL (0.2-1.0); BLOOD UREA NITROGEN 14 MG/DL (7-18); CALCIUM LEVEL 8.1 MG/DL (8.5-10.1); CARBON DIOXIDE LEVEL 28 MEQ/L (21-32); CHLORIDE LEVEL 108 MEQ/L (98-107); CPK CREATINE PHOSPHOKINASE 589 U/L (39-308); CREATININE FOR GFR 0.88 MG/DL (0.70-1.30); GLOMERULAR FILTRATION RATE > 60.0 (>56); GLUCOSE, FASTING 112 MG/DL (70-100); LIPASE 58 U/L (73-393); MB/CK RELATIVE INDEX 0.76 (< OR =4); POTASSIUM SERUM 3.8 MEQ/L (3.5-5.1); SODIUM LEVEL 142 MEQ/L (136-145); TOTAL PROTEIN 6.6 GM/DL (6.4-8.2); TROPONIN I < 0.02 NG/ML (< 0.10)
[2018-06-11] MEDS ORDERED: ISOVUE-370 76% 100ML VIAL (Q9967) As Ordered ONE (11:25)
[2018-06-11] MEDS ORDERED: ASPIRIN 325 MG TAB PO ONE (12:45)
--- NOTE | 2018-06-11 13:17 | REP ---
CT of the chest with IV contrast, CT pulmonary angiography: Comparison is 10/16/2016. There are no emboli in the pulmonary trunk or central pulmonary arteries. There are no emboli in the pulmonary lobe or segment branches. There are no infiltrates or pleural effusions. There are no masses or nodules. There is no mediastinal or hilar lymph node enlargement. No axillary lymph node enlargement. The thoracic aorta is unremarkable. Cardiac size is normal. The visualized upper abdomen is unremarkable. There is no adrenal mass. Impression: There are no pulmonary emboli. Otherwise, negative CT study of the chest. No interval change. Electronically Signed by Luciano Baltazar MD 06/11/2018 01:08 P
[2018-06-11 13:34] LABS: CPK CREATINE PHOSPHOKINASE 494 U/L (39-308); MB/CK RELATIVE INDEX 0.69 (< OR =4); TROPONIN I < 0.02 NG/ML (< 0.10)
[2018-06-11] MEDS ORDERED: NAPR-50 PO (13:56)
[2018-06-11 14:07] VITALS: BP 156/90
--- NOTE | 2018-06-11 21:06 | ECGEPIP ---
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
--- NOTE | 2018-06-11 21:09 | ECGEPIP ---
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
== END 2018-06-11 14:16 | disposition home or self-care (01) ==
LOC: M ED 09:07
DX: R07.89 Other chest pain (principal); I10 Essential (primary) hypertension; J45.909 Unspecified asthma, uncomplicated; G47.33 Obstructive sleep apnea (adult) (pediatric); R06.02 Shortness of breath; Z79.899 Other long term (current) drug therapy; Z79.01 Long term (current) use of anticoagulants; Z79.51 Long term (current) use of inhaled steroids
CPT/HCPCS: 36415; 71046; 71275; 80048; 80076; 82550; 82553; 83690; 84439; 84443; 84484; 85025; 85610; 85730; 93005; 93041; 94760; 99285; Q9967

== ENCOUNTER → 2018-08-17 | Outpatient (CLI) | payer BC ==
[~2018-08-17] MED LIST changes: +HYDR-3715 PO; +NAPR-837 PO; -NORCOTAB PO
--- NOTE | 2018-08-17 09:50 | REP ---
Chest x-ray: Three views. History: Disorders of the diaphragm. Comparison chest x-ray: June 11, 2018. March 02, 2018 prior chest x-ray is also reviewed. Findings: There is chronic elevation of the right hemidiaphragm unchanged. Pleural angles are sharp. Lung melvin are clear and well inflated otherwise. Pulmonary vasculature is not increased. Heart size is normal. There is a mild dextroconvex lower thoracic curvature unchanged. Mild degenerative disc changes are noted in the thoracic spine as well. Impression: Somewhat elevated right hemidiaphragm again noted unchanged. Otherwise no acute disease. Electronically Signed by Andreas Tejeda MD 08/17/2018 09:41 A
== END ==
LOC: M SMT 08:40
PROVIDERS: ATTEND Thoracic Surgery (Cardiothoracic Vascular Surgery)
DX: J98.6 Disorders of diaphragm (principal); M51.34 Other intervertebral disc degeneration, thoracic region

== ENCOUNTER → 2018-09-28 | Outpatient (REF) | payer BC ==
[2018-09-28 19:17] LABS: APPEARANCE, URINE CLEAR (CLEAR); BACTERIA, URINE AUTO NEGATIVE (NEGATIVE); BILIRUBIN, URINE AUTO NEGATIVE (NEGATIVE); BLOOD, URINE BLOOD NEGATIVE (NEGATIVE); COLOR, URINE YELLOW (YELLOW); GLUCOSE, URINE (UA) AUTO NEGATIVE (NEGATIVE); KETONE, URINE AUTO TRACE mg/dL (NEGATIVE); LEUKOCYTE ESTERASE, URINE AUTO NEGATIVE (NEGATIVE); MUCUS, URINE SMALL (NEGATIVE); NITRITE, URINE AUTO NEGATIVE (NEGATIVE); PROTEIN, URINE AUTO NEGATIVE (NEGATIVE); RBC, URINE AUTO 3 /HPF (0-3); SPECIFIC GRAVITY URINE AUTO 1.021 (1.002-1.035); SQUAMOUS EPITHELIAL CELL UR AU 0 /HPF (0-6); WBC, URINE AUTO 0 /HPF (0-3)
== END ==
LOC: M SMT 17:08
PROVIDERS: ATTEND Nurse Practitioner Women's Health
DX: R31.29 Other microscopic hematuria (principal)

== ENCOUNTER → 2018-10-18 | Outpatient (CLI) | payer BC ==
--- NOTE | 2018-11-02 01:13 | ECWPNPC ---
PATIENT NAME: ALBERT KABA : 1960 GENDER: MALE VISIT DATE: 10/18/2018 DISCHARGE DATE: 10/18/18 1132 VISIT LOCKED DATE TIME: PHYSICIAN: ADELA ALSTON RESOURCE: ADELA ALSTON REASON FOR APPOINTMENT 1. CHRONIC PAIN HISTORY OF PRESENT ILLNESS HISTORY OF PRESENT ILLNESS: HERE FOR F/U OF CHRONIC LBP WITH RIGHT LEG RADICULAR SYMPTOMS.PAIN HAS ESCALATED OVER THE PAST 2 MONTHS.HAS RESPONDED TO LESI IN PAST.RATING PAIN VAS 6/10. PAIN THE PATIENT DESCRIBES THE PAIN... FALL RISK SCREENING: SCREENING :NO FALLS REPORTED IN THE LAST YEAR CURRENT MEDICATIONS TAKING ATORVASTATIN CALCIUM 10 MG TABLET 1 TABLET ORALLY ONCE A DAY TAKING ATROVENT HFA 17 MCG/ACT AEROSOL SOLUTION 2 PUFFS INHALATION FOUR TIMES A DAY TAKING ALBUTEROL 90 MCG/ACT AEROSOL SOLUTION INHALATION TAKING VERAPAMIL HCL 180 MG (CO) TABLET EXTENDED RELEASE ORALLY BID TAKING ELIQUIS 5 MG TABLET ORALLY BID TAKING ADVAIR DISKUS 100-50 MCG/DOSE AEROSOL POWDER BREATH ACTIVATED 1 PUFF INHALATION TWICE A DAY TAKING NORVASC 2.5 MG TABLET 1 TABLET ORALLY ONCE A DAY TAKING TIZANIDINE HCL 2 MG TABLET 1 TABLET NEEDED ORALLY THREE TIMES A DAY TAKING GABAPENTIN 600 MG TABLET 1 CAP ORALLY BID TAKING METAXALONE 800 MG TABLET (PRIOR AUTH: RX REF#:[id number]) ORAL NOT-TAKING BACLOFEN 10 MG TABLET 1 TABLET WITH FOOD OR MILK ORALLY THREE TIMES A DAY, NOTES: 0830 NOT-TAKING KETOROLAC TROMETHAMINE 10 MG TABLET 1 TABLET WITH FOOD OR MILK NEEDED ORALLY EVERY 8 HRS NOT-TAKING LISINOPRIL 40 MG TABLET ORALLY NOT-TAKING POLYTRIM 61318-3.1 UNIT/ML SOLUTION 1 DROP INTO AFFECTED EYE OPHTHALMIC FOUR TIMES A DAY DISCONTINUED BACTRIM DS 800-160 MG TABLET 1 TABLET ORALLY DIRECTED- 1 HOUR PRIOR TO CYSTOSCOPY MEDICATION LIST REVIEWED AND RECONCILED WITH THE PATIENT PAST MEDICAL HISTORY UMBILICAL HERNIA ASTHMA IBS PROSTATE ISSUES HIGH BLOOD PRESSUE HERNIATED 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 SURGICAL HISTORY CONVERSION FOR AFIB CYSTOSCOPY 10/13/2018 FAMILY HISTORY FATHER: 69 YRS, ASTHMA, HIGH BLOOD PRESSURE, DIABETES MELLITUS MOTHER: 70 YRS, ASTHMA, HYPERTENSION, DIABETES MELLITUS 1 BROTHER(S) , 1 SISTER(S) . 1DAUGHTER(S) . FATHER HAD KIDNEY STONESHALF BROTHER(60) AND HALF SISTER(63) FROM DIABETESDAUGHTER AT 22 MONTHS OLD - DEFECT HEART AND BORN WITH NO STERNUM. SOCIAL HISTORY GENERAL: TOBACCO USE ARE YOU A:FORMER SMOKER HOW LONG HAS IT BEEN SINCE YOU LAST SMOKED?1-5 YEARS HIV / HEP-C SCREENING HIV TEST OFFERED TO PATIENT:YES DATE OFFERED:06/08/2016 TEST ACCEPTED:NO REASON:PATIENT DECLINED HEP-C TEST OFFERED TO PATIENT:YES DATE OFFERED:06/08/2016 TEST ACCEPTED:NO REASON:PATIENT DECLINED DIET: REGULAR. LANGUAGE LANGUAGES SPOKEN:PASHTO RECREATIONAL DRUG USE DENIES. EXERCISE: LIFT WEIGHTS, CARDIO. LEARNING BARRIERS / SPECIAL NEEDS BARRIERS TO LEARNING?NO HEARING IMPAIRED?NO VISION IMPAIRED?YES :CORRECTIVE LENSES COGNITIVELY IMPAIRED?NO READINESS TO LEARN?YES LEARNING PREFERENCES?NO LEARNING CAPABILITIES PRESENT?YES EMOTIONAL BARRIERS?NO SPECIAL DEVICES?NO SLATE HANDLER NEEDED?NO PAIN CLINIC PFS, CLERGY, PUBLIC HEALTH REFERRALS PFS REFERRAL NEEDED?NO CLERGY REFERRAL NEEDED?NO PUBLIC HEALTH REFERRAL NEEDED?NO HAS THE PATIENT BEEN EDUCATED REGARDING HIS/HER PLAN OF CARE?YES HAS THE PATIENT BEEN EDUCATED REGARDING PAIN, THE RISK FOR PAIN, THE IMPORTANCE OF EFFECTIVE PAIN MANAGEMENT, AND THE PAIN ASSESSMENT PROCESS?YES LATEX QUESTIONNAIRE LATEX ALLERGY : HAVE YOU EVER DEVELOPED ANY TYPE OF REACTION AFTER HANDLING LATEX PRODUCTS SUCH RUBBER GLOVES, CONDOMS, DIAPHRAGMS, BALLOONS, SOCKS, OR UNDERWEAR?NO LATEX ALLERGY : HAVE YOU EVER DEVELOPED ANY TYPE OF REACTION DURING OR AFTER DENTAL APPOINTMENT, VAGINAL/RECTAL EXAMINATION, SURGICAL PROCEDURE, OR ANY OTHER EXPOSURE?NO LATEX RISK : HAVE YOU EVER HAD ANY DIFFICULTY BREATHING OR HIVES AFTER EATING OR HANDLING ANY FRUITS, OR VEGETABLES; SUCH KIWI, BANANAS, STONE FRUITS, OR CHESTNUTSNO LATEX RISK : DO YOU HAVE A PREVIOUS PERSONAL HISTORY OF MORE THAN NINE SURGERIES, SPINA BIFIDA, OR REPEATED CATHERIZATIONS? NO LATEX RISK : ARE YOU FREQUENTLY EXPOSED TO LATEX PRODUCTS IN YOUR OCCUPATION?NO DATE ASKED : 10/13/2018 CAFFEINE 1-2/DAY. ADVANCE DIRECTIVE ADVANCE DIRECTIVE DISCUSSED WITH PATIENT:YES HCP - BILL ALARCON GNOSTICISM GNOSTICISM NO CHRISTIAN BELIEFS THAT WOULD IMPACT HEALTH CARE. MARITAL STATUS: . ALCOHOL SCREENING DID YOU HAVE A DRINK CONTAINING ALCOHOL IN THE PAST YEAR?YES HOW OFTEN DID YOU HAVE A DRINK CONTAINING ALCOHOL IN THE PAST YEAR?TWO TO FOUR TIMES A MONTH (2 POINTS) HOW MANY DRINKS DID YOU HAVE ON A TYPICAL DAY WHEN YOU WERE DRINKING IN THE PAST YEAR?1 OR 2 (0 POINTS) HOW OFTEN DID YOU HAVE SIX OR MORE DRINKS ON ONE OCCASION IN THE PAST YEAR?LESS THAN MONTHLY (1 POINT) POINTS3 INTERPRETATIONNEGATIVE OCCUPATION: [employer]. REVIEWED WITH PATIENT 02/07/18 1402 JS REVIEWED WITH PATIENT 04/19/18 0953 LAS. HOSPITALIZATION/MAJOR DIAGNOSTIC PROCEDURE A-FIB 2016 REVIEW OF SYSTEMS REVIEWED BY: PROVIDER: ADELA KABA . CONSTITUTIONAL: ANY CHANGE IN YOUR MEDICAL CONDITION? YES, HEMATURIA BEING WORKED UP . CHILLS NO . FEVER NO . INFECTION: DO YOU HAVE NEW INFECTIONS? NO . DO YOU HAVE HISTORY OF MRSA? NO . MUSCULOSKELETAL: ANY NEW PATTERNS OF PAIN OR NUMBNESS? YES ,PT C/O BILAT HAND PAIN ACHING AND WEAKNESS X 1 YEAR. 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 GASTROENTEROLOGY: ANY NEW CHANGE IN BOWEL CONTROL? NO . GENITOURINARY: ANY NEW CHANGE IN BLADDER CONTROL? YES, PT REPORTS HEMATURIA X 1 MONTH, PT BEING WORKED UP BY UROLOGY . IS THERE A CHANCE YOU COULD BE ? NO . HEMATOLOGY/LYMPH: DO YOU TAKE ANY BLOOD THINNERS? (FOR EXAMPLE- COUMADIN, PLAVIX, AGGRENOX, PLATEL, PRADAXA, OR XARELTO) YES, ELIQUIS . WHEN WAS YOUR LAST DOSE? DATE: TIME: . NEUROLOGY: HAVE YOU FALLEN IN THE PAST 12 MONTHS? NO . ANY NEW EXTREMITY NUMBNESS OR WEAKNESS? NO . CARDIOLOGY: DO YOU HAVE A PACEMAKER OR DEFIBRILLATOR? NO . RESPIRATORY: HAVE YOU BEEN SICK IN THE PAST WEEK? NO . FEVER NO . FLU LIKE SYMPTOMS? NO . COUGH NO . INTEGUMENTARY: DO YOU HAVE ANY RASHES OR OPEN SORES? YES, FEET GET HOT AND BREAK OUT . ALLERGIC/IMMUNO: ARE YOU ALLERGIC TO IV DYE? NO . ANY NEW ALLERGIES? NO . PSYCHIATRIC: DO YOU HAVE THOUGHTS OF HURTING YOURSELF OR SOMEONE ELSE? NO . ARE YOU ABUSED, NEGLECTED, OR IN AN UNSAFE ENVIRONMENT? NO . ENDOCRINOLOGY: ARE YOU DIABETIC? NO . OTHER: DO YOU NEED ANY PRESCRIPTIONS? NO . IF YES, PLEASE LIST: ____ . ANY NEW PROBLEMS WITH YOUR MEDICATIONS? NO . WHEN DID YOU LAST EAT? ____ . WHEN DID YOU LAST DRINK? ____ . WHAT DID YOU LAST DRINK? ____ . NAME OF PERSON DRIVING YOU HOME? ____ . DO YOU HAVE ANY OTHER QUESTIONS OR CONCERNS NO . VITAL SIGNS WT 192 LBS, HT 69 IN, BMI 28.35 INDEX, BP 140/86 MM HG, HR 62 /MIN, RR 18 /MIN, TEMP 97.4 F, OXYGEN SAT % 96%, NA INITIALS AW 1102, REVIEWED BY: EM. EXAMINATION GENERAL EXAMINATION: GENERAL AWAKE,ALERT ,PLEAASANT . PSYCH AFFECT NORMAL . LUNGS: LUNG GOETZ ARE CLEAR TO AUSCULTATION BILATERALLY. GOOD MOVEMENT OF AIR . HEART: S1, S2 IN A REGULAR RATE AND RHYTHM. NO SIGNIFICANT MURMURS, RUBS OR GALLOPS NOTED . MUSCULOSKELETAL: MUSCLE STRENGTH TESTING 5/5 BILATERAL. LUMBAR SACRAL SPINE PALPATION: + FOR PAIN OVER L/S SPINE. + FOR PAIN OVER L/S PARASPINALS. NEUROLOGIC EXAM: NORMAL SENSATION LIGHT TOUCH BILAT. LOWER EXTREMITIES. DIAGNOSTIC TESTS REVIEWED MRI L/S SPINE-05/04/16. ASSESSMENTS INTERVERTEBRAL DISC DISORDER WITH RADICULOPATHY OF LUMBOSACRAL REGION - M51.17 (PRIMARY) TREATMENT INTERVERTEBRAL DISC DISORDER WITH RADICULOPATHY OF LUMBOSACRAL REGION NOTES: L5/S1 LESI. PROCEDURE CODES FA211 ESTABILISHED PATIENT [facility] CHARGE DISPOSITION & COMMUNICATION FOLLOW UP POST (REASON: L5/S1 LESI) ELECTRONICALLY SIGNED BY SENDY SAXENA ON 11/01/2018 AT 04:05 PM EDT DISCLAIMER : THIS IS A VISIT SUMMARY EXTRACTED FROM THE [employer] CHART. IT IS NOT A COPY OF THE [employer] PROGRESS NOTE. IVORYD
== END ==
LOC: M PAIN 10:45
PROVIDERS: ATTEND Nurse Practitioner Family
DX: G89.29 Other chronic pain (principal); M51.17 Intervertebral disc disorders with radiculopathy, lumbosacral region; J45.909 Unspecified asthma, uncomplicated; K58.9 Irritable bowel syndrome, unspecified; R03.0 Elevated blood-pressure reading, without diagnosis of hypertension; I48.91 Unspecified atrial fibrillation; Z87.891 Personal history of nicotine dependence; Z79.01 Long term (current) use of anticoagulants; Z79.899 Other long term (current) drug therapy

== ENCOUNTER → 2018-12-06 | Outpatient (CLI) | payer BC ==
[~2018-12-06] MED LIST changes: +ISOVUE-M 300 61% 15ML VIAL (Q9967) As Ordered ONE; +LIDOCAINE 1% SDV INJ 30 ML VIAL As Ordered ONE; +diazePAM 5 MG TAB As Ordered ONE; +methylPREDNISolone SUSP 40 MG/ML (DEPO-medrol) VIAL (J1030) As Ordered ONE; +oxyCODONE 5MG TAB As Ordered ONE
--- NOTE | 2018-12-06 12:18 | REP ---
Partial lumbar spine series: To views . History: Injection procedure for pain. Five seconds of fluoroscopy time is reported. Findings: A sequence of two fluoroscopically obtained last image hold procedural spot radiographs of the lumbar spine document needle position and contrast injection associated with injection procedure. Electronically Signed by Andreas Tejeda MD 12/06/2018 12:09 P
--- NOTE | 2018-12-20 01:11 | ECWPNPC ---
PATIENT NAME: ALBERT KABA : 1960 GENDER: MALE VISIT DATE: 12/06/2018 DISCHARGE DATE: 12/06/18 1158 VISIT LOCKED DATE TIME: PHYSICIAN: RACHELL BLANCHARD MD RESOURCE: RACHELL BLANCHARD MD REASON FOR APPOINTMENT 1. L5/S1 LESI HISTORY OF PRESENT ILLNESS HISTORY OF PRESENT ILLNESS: PAIN THE PATIENT DESCRIBES THE PAIN... FALL RISK SCREENING: SCREENING :NO FALLS REPORTED IN THE LAST YEAR CURRENT MEDICATIONS TAKING ATORVASTATIN CALCIUM 10 MG TABLET 1 TABLET ORALLY ONCE A DAY TAKING ATROVENT HFA 17 MCG/ACT AEROSOL SOLUTION 2 PUFFS INHALATION FOUR TIMES A DAY TAKING ALBUTEROL 90 MCG/ACT AEROSOL SOLUTION INHALATION TAKING VERAPAMIL HCL 180 MG (CO) TABLET EXTENDED RELEASE ORALLY BID TAKING ELIQUIS 5 MG TABLET ORALLY BID, NOTES: 11/30/18 TAKING ADVAIR DISKUS 100-50 MCG/DOSE AEROSOL POWDER BREATH ACTIVATED 1 PUFF INHALATION TWICE A DAY TAKING NORVASC 2.5 MG TABLET 1 TABLET ORALLY ONCE A DAY TAKING TIZANIDINE HCL 2 MG TABLET 1 TABLET NEEDED ORALLY THREE TIMES A DAY TAKING GABAPENTIN 600 MG TABLET 1 CAP ORALLY BID TAKING METAXALONE 800 MG TABLET (PRIOR AUTH: RX REF#:[id number]) ORAL NOT-TAKING BACLOFEN 10 MG TABLET 1 TABLET WITH FOOD OR MILK ORALLY THREE TIMES A DAY, NOTES: 0830 NOT-TAKING KETOROLAC TROMETHAMINE 10 MG TABLET 1 TABLET WITH FOOD OR MILK NEEDED ORALLY EVERY 8 HRS NOT-TAKING LISINOPRIL 40 MG TABLET ORALLY NOT-TAKING POLYTRIM 42144-8.1 UNIT/ML SOLUTION 1 DROP INTO AFFECTED EYE OPHTHALMIC FOUR TIMES A DAY MEDICATION LIST REVIEWED AND RECONCILED WITH THE PATIENT PAST MEDICAL HISTORY UMBILICAL HERNIA ASTHMA IBS PROSTATE ISSUES HIGH BLOOD PRESSUE HERNIATED 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 SURGICAL HISTORY CONVERSION FOR AFIB CYSTOSCOPY 10/18/2018 FAMILY HISTORY FATHER: 69 YRS, ASTHMA, HIGH BLOOD PRESSURE, DIABETES MELLITUS MOTHER: 70 YRS, ASTHMA, HYPERTENSION, DIABETES MELLITUS 1 BROTHER(S) , 1 SISTER(S) . 1DAUGHTER(S) . FATHER HAD KIDNEY STONESHALF BROTHER(60) AND HALF SISTER(63) FROM DIABETESDAUGHTER AT 22 MONTHS OLD - DEFECT HEART AND BORN WITH NO STERNUM. SOCIAL HISTORY GENERAL: TOBACCO USE ARE YOU A:FORMER SMOKER HOW LONG HAS IT BEEN SINCE YOU LAST SMOKED?1-5 YEARS HIV / HEP-C SCREENING HIV TEST OFFERED TO PATIENT:YES DATE OFFERED:06/08/2016 TEST ACCEPTED:NO HEP-C TEST OFFERED TO PATIENT:YES DATE OFFERED:06/08/2016 REASON:PATIENT DECLINED TEST ACCEPTED:NO REASON:PATIENT DECLINED DIET: REGULAR. LANGUAGE LANGUAGES SPOKEN:[place] RECREATIONAL DRUG USE DENIES. EXERCISE: LIFT WEIGHTS, CARDIO. LEARNING BARRIERS / SPECIAL NEEDS BARRIERS TO LEARNING?NO HEARING IMPAIRED?NO VISION IMPAIRED?YES COGNITIVELY IMPAIRED?NO :CORRECTIVE LENSES READINESS TO LEARN?YES LEARNING PREFERENCES?NO LEARNING CAPABILITIES PRESENT?YES EMOTIONAL BARRIERS?NO SPECIAL DEVICES?NO WEBSITE OPTIMIZATION STRATEGIST NEEDED?NO PAIN CLINIC PFS, CLERGY, PUBLIC HEALTH REFERRALS PFS REFERRAL NEEDED?NO CLERGY REFERRAL NEEDED?NO PUBLIC HEALTH REFERRAL NEEDED?NO HAS THE PATIENT BEEN EDUCATED REGARDING HIS/HER PLAN OF CARE?YES HAS THE PATIENT BEEN EDUCATED REGARDING PAIN, THE RISK FOR PAIN, THE IMPORTANCE OF EFFECTIVE PAIN MANAGEMENT, AND THE PAIN ASSESSMENT PROCESS?YES LATEX QUESTIONNAIRE LATEX ALLERGY : HAVE YOU EVER DEVELOPED ANY TYPE OF REACTION AFTER HANDLING LATEX PRODUCTS SUCH RUBBER GLOVES, CONDOMS, DIAPHRAGMS, BALLOONS, SOCKS, OR UNDERWEAR?NO LATEX ALLERGY : HAVE YOU EVER DEVELOPED ANY TYPE OF REACTION DURING OR AFTER DENTAL APPOINTMENT, VAGINAL/RECTAL EXAMINATION, SURGICAL PROCEDURE, OR ANY OTHER EXPOSURE?NO DATE ASKED : 10/18/2018 LATEX RISK : HAVE YOU EVER HAD ANY DIFFICULTY BREATHING OR HIVES AFTER EATING OR HANDLING ANY FRUITS, OR VEGETABLES; SUCH KIWI, BANANAS, STONE FRUITS, OR CHESTNUTSNO LATEX RISK : DO YOU HAVE A PREVIOUS PERSONAL HISTORY OF MORE THAN NINE SURGERIES, SPINA BIFIDA, OR REPEATED CATHERIZATIONS? NO LATEX RISK : ARE YOU FREQUENTLY EXPOSED TO LATEX PRODUCTS IN YOUR OCCUPATION?NO CAFFEINE 1-2/DAY. ADVANCE DIRECTIVE ADVANCE DIRECTIVE DISCUSSED WITH PATIENT:YES HCP - BILL ALARCON DRUZE DRUZE NO HINDUISM BELIEFS THAT WOULD IMPACT HEALTH CARE. MARITAL STATUS: . ALCOHOL SCREENING DID YOU HAVE A DRINK CONTAINING ALCOHOL IN THE PAST YEAR?YES HOW OFTEN DID YOU HAVE SIX OR MORE DRINKS ON ONE OCCASION IN THE PAST YEAR?LESS THAN MONTHLY (1 POINT) HOW MANY DRINKS DID YOU HAVE ON A TYPICAL DAY WHEN YOU WERE DRINKING IN THE PAST YEAR?1 OR 2 (0 POINTS) HOW OFTEN DID YOU HAVE A DRINK CONTAINING ALCOHOL IN THE PAST YEAR?TWO TO FOUR TIMES A MONTH (2 POINTS) POINTS3 INTERPRETATIONNEGATIVE OCCUPATION: [employer]. REVIEWED WITH PATIENT 02/07/18 1402 JS REVIEWED WITH PATIENT 04/19/18 8009 [facility]. HOSPITALIZATION/MAJOR DIAGNOSTIC PROCEDURE A-FIB 2016 REVIEW OF SYSTEMS REVIEWED BY: PROVIDER: . CONSTITUTIONAL: ANY CHANGE IN YOUR MEDICAL CONDITION? NO . CHILLS NO . FEVER NO . INFECTION: DO YOU HAVE NEW INFECTIONS? NO . DO YOU HAVE HISTORY OF MRSA? NO . MUSCULOSKELETAL: ANY NEW PATTERNS OF PAIN OR NUMBNESS? YES, PAIN IS WORSE . GASTROENTEROLOGY: ANY NEW CHANGE IN BOWEL CONTROL? NO . GENITOURINARY: ANY NEW CHANGE IN BLADDER CONTROL? NO . IS THERE A CHANCE YOU COULD BE ? NO . HEMATOLOGY/LYMPH: DO YOU TAKE ANY BLOOD THINNERS? (FOR EXAMPLE- COUMADIN, PLAVIX, AGGRENOX, PLATEL, PRADAXA, OR XARELTO) YES, ELIQUIS 11/30/18 . WHEN WAS YOUR LAST DOSE? DATE: TIME: . NEUROLOGY: HAVE YOU FALLEN IN THE PAST 12 MONTHS? NO . ANY NEW EXTREMITY NUMBNESS OR WEAKNESS? NO . CARDIOLOGY: DO YOU HAVE A PACEMAKER OR DEFIBRILLATOR? NO . RESPIRATORY: HAVE YOU BEEN SICK IN THE PAST WEEK? NO . FEVER NO . FLU LIKE SYMPTOMS? NO . COUGH NO . INTEGUMENTARY: DO YOU HAVE ANY RASHES OR OPEN SORES? YES, ECZEMA TO FEET . ALLERGIC/IMMUNO: ARE YOU ALLERGIC TO IV DYE? NO . ANY NEW ALLERGIES? NO . PSYCHIATRIC: DO YOU HAVE THOUGHTS OF HURTING YOURSELF OR SOMEONE ELSE? NO . ARE YOU ABUSED, NEGLECTED, OR IN AN UNSAFE ENVIRONMENT? NO . ENDOCRINOLOGY: ARE YOU DIABETIC? NO . OTHER: DO YOU NEED ANY PRESCRIPTIONS? NO . IF YES, PLEASE LIST: ____ . ANY NEW PROBLEMS WITH YOUR MEDICATIONS? NO . WHEN DID YOU LAST EAT? 12/05/18 1800 . WHEN DID YOU LAST DRINK? 12/05/18 1100 . WHAT DID YOU LAST DRINK? ____WATER . NAME OF PERSON DRIVING YOU HOME? KALEANNA . DO YOU HAVE ANY OTHER QUESTIONS OR CONCERNS NO . VITAL SIGNS WT 192 LBS, HT 69 IN, BMI 28.35 INDEX, BP 138/83 MM HG, HR 72 /MIN, RR 18 /MIN, TEMP 98.6 F, OXYGEN SAT % 95%, NA INITIALS SC 10:30, REVIEWED BY: EM. ASSESSMENTS INTERVERTEBRAL DISC DISORDER WITH RADICULOPATHY OF LUMBOSACRAL REGION - M51.17 (PRIMARY) TREATMENT INTERVERTEBRAL DISC DISORDER WITH RADICULOPATHY OF LUMBOSACRAL REGION [facility] FLUORO GUIDE SPINE INJECTION (PAIN)[id number] PROCEDURES PRE PROCEDURE DIAGNOSIS LUMBOSACRAL DISC DISORDER WITH RADICULOPATHY POST PROCEDURE DIAGNOSIS LUMBOSACRAL DISC DISORDER WITH RADICULOPATHY PROCEDURE LUMBAR EPIDURAL STEROID INJECTION UNDER FLUOROSCOPIC GUIDANCE SURGEON DR. RACHELL BLANCHARD TOLL OPERATOR NONE ANESTHESIA LOCAL PRE PROCEDURE NOTE THE PATIENT HAS A HISTORY OF CHRONIC LOW BACK PAIN. I EVALUATED THE PATIENT AND REVIEWED THE CHART. I WENT OVER THE RISKS, ALTERNATIVES, AND BENEFITS ASSOCIATED WITH THIS PROCEDURE. THE PATIENT WOULD LIKE TO PROCEED AND GIVES CONSENT TO PERFORM THE PROCEDURE. THE PATIENT DENIES UNEXPLAINABLE WEIGHT LOSS, FEVER, CHILLS, OR NEW CHANGES IN URINARY OR BOWEL CONTROL. DESCRIPTION OF PROCEDURE THE PATIENT WAS BROUGHT TO THE PROCEDURE ROOM AND PLACED IN THE PRONE POSITION. THE LUMBOSACRAL AREA WAS CLEANED WITH BETADINE SOLUTION AND DRAPED ASEPTICALLY. THE PROCEDURE WAS DONE UNDER STERILE CONDITIONS. I CHECKED LATERALITY AND THE LEVEL WHERE THE PROCEDURE WAS GOING TO BE PERFORMED WITH THE PATIENT AND THE SUPPORTING STAFF AT THE MOMENT OF THE TIME OUT IN THE PROCEDURE ROOM. UNDER FLUOROSCOPIC GUIDANCE, THE TARGET POINT WAS SELECTED AT THE INTERLAMINAR LEVEL OF L5-S1. LIDOCAINE WAS USED TO NUMB THE SKIN AND THE SUBCUTANEOUS TISSUE BELOW IT. EPIDURAL TUOHY NEEDLE, 17-GAUGE, WAS ADVANCED UNDER FLUOROSCOPIC GUIDANCE AND FOLLOWING PATIENT FEEDBACK UNTIL THE EPIDURAL SPACE WAS REACHED, 7 CM DEEP INTO THE SKIN BY THE LOSS OF RESISTANCE TECHNIQUE. ISOVUE M DYE 30%, 0.25 ML, WAS INJECTED SHOWING ADEQUATE SPREAD OF THE DYE. THEN, A SOLUTION OF 3 ML OF NORMAL SALINE WITH DEPO-MEDROL 60 MG WAS INJECTED SLOWLY FOLLOWING PATIENT FEEDBACK. THERE WAS NO EVIDENCE OF BLOOD, PARESTHESIA OR CEREBROSPINAL FLUID DURING THE PROCEDURE. THE PATIENT WAS SENT TO THE RECOVERY ROOM. THE PATIENT WAS MOVING THE EXTREMITIES AND DOING WELL. THERE WAS NO COMPLICATION DURING THE PROCEDURE. FLUOROSCOPY TIME WAS 5 SECONDS. POST PROCEDURE NOTE THE PATIENT WILL BE SEEN IN A FOLLOW UP IN THE NEXT FEW WEEKS. INSTRUCTIONS WERE GIVEN, QUESTIONS WERE ANSWERED, AND THE PATIENT EXPRESSED UNDERSTANDING AND AGREES WITH THE PLAN. I, ASHLEY ALVA, DOCUMENTED THE ABOVE INFORMATION ACTING A SCRIBE FOR DR. BLANCHARD. I HAVE REVIEWED THE ABOVE DOCUMENT, WRITTEN BY ASHLEY DE LOS SANTOS AND I VERIFY THAT IT IS ACCURATE. PROCEDURE CODES 58580 LUMBAR/SACRAL W/ IMAGING 6045F RADXPS IN END [id number] PXD DISPOSITION & COMMUNICATION FOLLOW UP 2 WEEKS ELECTRONICALLY SIGNED BY RACHELL BLANCHARD MD, MD ON 12/19/2018 AT 10:41 AM EDT DISCLAIMER : THIS IS A VISIT SUMMARY EXTRACTED FROM THE [employer] CHART. IT IS NOT A COPY OF THE [employer] PROGRESS NOTE. MTDD
== END ==
LOC: M PAIN 10:30
PROVIDERS: ATTEND Anesthesiology
DX: M51.17 Intervertebral disc disorders with radiculopathy, lumbosacral region (principal); J45.909 Unspecified asthma, uncomplicated; K58.9 Irritable bowel syndrome, unspecified; R03.0 Elevated blood-pressure reading, without diagnosis of hypertension; I48.91 Unspecified atrial fibrillation; Z87.891 Personal history of nicotine dependence; Z79.899 Other long term (current) drug therapy; Z79.01 Long term (current) use of anticoagulants
CPT/HCPCS: 62323; J1030; Q9967

== ENCOUNTER → 2018-12-27 | Outpatient (CLI) | payer BC ==
[~2018-12-27] MED LIST changes: -ISOVUE-M 300 61% 15ML VIAL (Q9967) As Ordered ONE; -LIDOCAINE 1% SDV INJ 30 ML VIAL As Ordered ONE; -diazePAM 5 MG TAB As Ordered ONE; -methylPREDNISolone SUSP 40 MG/ML (DEPO-medrol) VIAL (J1030) As Ordered ONE; -oxyCODONE 5MG TAB As Ordered ONE
--- NOTE | 2019-01-01 23:43 | ECWPNPC ---
PATIENT NAME: ALBERT KABA : 1960 GENDER: MALE VISIT DATE: 12/27/2018 DISCHARGE DATE: 12/27/18 1210 VISIT LOCKED DATE TIME: PHYSICIAN: LOC BYNUM RESOURCE: LOC BYNUM REASON FOR APPOINTMENT 1. POST PROC HISTORY OF PRESENT ILLNESS HISTORY OF PRESENT ILLNESS: PAIN THE PATIENT DESCRIBES THE PAIN... 58-YEAR-OLD MALE IN FOR POST LESI FOLLOW-UP. HIS PAIN IS LOCATED IN HIS LOW BACK BILATERALLY HE RATES HIS PAIN PREPROCEDURE AT A 6-7 OUT OF 10 AND POSTPROCEDURE AT A 0 OUT OF 10 BUT HE FURTHER STATES THIS ONLY LASTED FOR ABOUT 1 WEEK. HE RATES HIS PAIN CURRENTLY AT A 6-7 OUT OF 10 AND DESCRIBES IT BURNING AND SORE. FALL RISK SCREENING: SCREENING :NO FALLS REPORTED IN THE LAST YEAR CURRENT MEDICATIONS TAKING ATORVASTATIN CALCIUM 10 MG TABLET 1 TABLET ORALLY ONCE A DAY TAKING ATROVENT HFA 17 MCG/ACT AEROSOL SOLUTION 2 PUFFS INHALATION FOUR TIMES A DAY TAKING ALBUTEROL 90 MCG/ACT AEROSOL SOLUTION 2 PUFFS INHALATION FOUR TIMES DAILY NEEDED TAKING VERAPAMIL HCL 180 MG (CO) TABLET EXTENDED RELEASE ORALLY BID TAKING ELIQUIS 5 MG TABLET ORALLY BID, NOTES: 12/27 829 TAKING ADVAIR DISKUS 100-50 MCG/DOSE AEROSOL POWDER BREATH ACTIVATED 1 PUFF INHALATION TWICE A DAY TAKING NORVASC 2.5 MG TABLET 1 TABLET ORALLY ONCE A DAY TAKING TIZANIDINE HCL 2 MG TABLET 1 TABLET NEEDED ORALLY THREE TIMES A DAY TAKING GABAPENTIN 600 MG TABLET 1 CAP ORALLY BID TAKING METAXALONE 800 MG TABLET 1 TAB ORAL FOUR TIMES DAILY NEEDED NOT-TAKING BACLOFEN 10 MG TABLET 1 TABLET WITH FOOD OR MILK ORALLY THREE TIMES A DAY, NOTES: 0830 NOT-TAKING KETOROLAC TROMETHAMINE 10 MG TABLET 1 TABLET WITH FOOD OR MILK NEEDED ORALLY EVERY 8 HRS NOT-TAKING LISINOPRIL 40 MG TABLET ORALLY NOT-TAKING POLYTRIM 46091-2.1 UNIT/ML SOLUTION 1 DROP INTO AFFECTED EYE OPHTHALMIC FOUR TIMES A DAY MEDICATION LIST REVIEWED AND RECONCILED WITH THE PATIENT PAST MEDICAL HISTORY UMBILICAL HERNIA ASTHMA IBS PROSTATE ISSUES HIGH BLOOD PRESSUE HERNIATED DISC IN BACK WITH CHRONIC BACK PAIN A FIB ALLERGIES N.K.D.A. SURGICAL HISTORY CONVERSION FOR AFIB CYSTOSCOPY 10/18/2018 FAMILY HISTORY FATHER: 69 YRS, ASTHMA, HIGH BLOOD PRESSURE, DIABETES MELLITUS MOTHER: 70 YRS, ASTHMA, HYPERTENSION, DIABETES MELLITUS 1 BROTHER(S) , 1 SISTER(S) . 1DAUGHTER(S) . FATHER HAD KIDNEY STONESHALF BROTHER(60) AND HALF SISTER(63) FROM DIABETESDAUGHTER AT 22 MONTHS OLD - DEFECT HEART AND BORN WITH NO STERNUM. SOCIAL HISTORY GENERAL: TOBACCO USE ARE YOU A:FORMER SMOKER HOW LONG HAS IT BEEN SINCE YOU LAST SMOKED?1-5 YEARS HIV / HEP-C SCREENING HIV TEST OFFERED TO PATIENT:YES DATE OFFERED:06/08/2016 TEST ACCEPTED:NO HEP-C TEST OFFERED TO PATIENT:YES DATE OFFERED:06/08/2016 REASON:PATIENT DECLINED TEST ACCEPTED:NO REASON:PATIENT DECLINED DIET: REGULAR. LANGUAGE LANGUAGES SPOKEN:CAMEROONIAN DOMESTIC VIOLENCE DO YOU FEEL SAFE IN YOUR ENVIRONMENT?YES RECREATIONAL DRUG USE DENIES. EXERCISE: LIFT WEIGHTS, CARDIO. LEARNING BARRIERS / SPECIAL NEEDS BARRIERS TO LEARNING?NO HEARING IMPAIRED?NO VISION IMPAIRED?YES COGNITIVELY IMPAIRED?NO :CORRECTIVE LENSES READINESS TO LEARN?YES LEARNING PREFERENCES?NO LEARNING CAPABILITIES PRESENT?YES EMOTIONAL BARRIERS?NO SPECIAL DEVICES?NO NURSE LIAISON NEEDED?NO PAIN CLINIC PFS, CLERGY, PUBLIC HEALTH REFERRALS PFS REFERRAL NEEDED?NO CLERGY REFERRAL NEEDED?NO PUBLIC HEALTH REFERRAL NEEDED?NO HAS THE PATIENT BEEN EDUCATED REGARDING HIS/HER PLAN OF CARE?YES HAS THE PATIENT BEEN EDUCATED REGARDING PAIN, THE RISK FOR PAIN, THE IMPORTANCE OF EFFECTIVE PAIN MANAGEMENT, AND THE PAIN ASSESSMENT PROCESS?YES LATEX QUESTIONNAIRE LATEX ALLERGY : HAVE YOU EVER DEVELOPED ANY TYPE OF REACTION AFTER HANDLING LATEX PRODUCTS SUCH RUBBER GLOVES, CONDOMS, DIAPHRAGMS, BALLOONS, SOCKS, OR UNDERWEAR?NO LATEX ALLERGY : HAVE YOU EVER DEVELOPED ANY TYPE OF REACTION DURING OR AFTER DENTAL APPOINTMENT, VAGINAL/RECTAL EXAMINATION, SURGICAL PROCEDURE, OR ANY OTHER EXPOSURE?NO LATEX RISK : HAVE YOU EVER HAD ANY DIFFICULTY BREATHING OR HIVES AFTER EATING OR HANDLING ANY FRUITS, OR VEGETABLES; SUCH KIWI, BANANAS, STONE FRUITS, OR CHESTNUTSNO LATEX RISK : DO YOU HAVE A PREVIOUS PERSONAL HISTORY OF MORE THAN NINE SURGERIES, SPINA BIFIDA, OR REPEATED CATHERIZATIONS? NO LATEX RISK : ARE YOU FREQUENTLY EXPOSED TO LATEX PRODUCTS IN YOUR OCCUPATION?NO DATE ASKED : 12/27/2018 CAFFEINE 1-2/DAY. ADVANCE DIRECTIVE ADVANCE DIRECTIVE DISCUSSED WITH PATIENT:YES HCP - BILL ALARCON EVANGELICAL EVANGELICAL NO JEW BELIEFS THAT WOULD IMPACT HEALTH CARE. MARITAL STATUS: . ALCOHOL SCREENING DID YOU HAVE A DRINK CONTAINING ALCOHOL IN THE PAST YEAR?YES HOW OFTEN DID YOU HAVE SIX OR MORE DRINKS ON ONE OCCASION IN THE PAST YEAR?LESS THAN MONTHLY (1 POINT) HOW MANY DRINKS DID YOU HAVE ON A TYPICAL DAY WHEN YOU WERE DRINKING IN THE PAST YEAR?1 OR 2 (0 POINTS) HOW OFTEN DID YOU HAVE A DRINK CONTAINING ALCOHOL IN THE PAST YEAR?TWO TO FOUR TIMES A MONTH (2 POINTS) POINTS3 INTERPRETATIONNEGATIVE OCCUPATION: [employer]. REVIEWED WITH PATIENT 02/07/18 1402 JS REVIEWED WITH PATIENT 04/19/18 0955 LAS 12/27/18 1137 REVIEWED WITH PT. AD. HOSPITALIZATION/MAJOR DIAGNOSTIC PROCEDURE A-FIB 2016 REVIEW OF SYSTEMS REVIEWED BY: PROVIDER: GLENN FERREIRA . CONSTITUTIONAL: ANY CHANGE IN YOUR MEDICAL CONDITION? NO . CHILLS NO . FEVER NO . INFECTION: DO YOU HAVE NEW INFECTIONS? NO . DO YOU HAVE HISTORY OF MRSA? NO . MUSCULOSKELETAL: ANY NEW PATTERNS OF PAIN OR NUMBNESS? YES, PAIN IS IN BOTH LEGS NOW FOR THE PAST 5 DAYS, WAS ONLY IN THE RIGHT PRIOR TO PROCEDURE . GASTROENTEROLOGY: ANY NEW CHANGE IN BOWEL CONTROL? NO . GENITOURINARY: ANY NEW CHANGE IN BLADDER CONTROL? NO . IS THERE A CHANCE YOU COULD BE ? NO . HEMATOLOGY/LYMPH: DO YOU TAKE ANY BLOOD THINNERS? (FOR EXAMPLE- COUMADIN, PLAVIX, AGGRENOX, PLATEL, PRADAXA, OR XARELTO) YES, ELIQUIS . WHEN WAS YOUR LAST DOSE? DATE: TIME:12/27/18 0830 . NEUROLOGY: HAVE YOU FALLEN IN THE PAST 12 MONTHS? NO . ANY NEW EXTREMITY NUMBNESS OR WEAKNESS? NO . CARDIOLOGY: DO YOU HAVE A PACEMAKER OR DEFIBRILLATOR? NO . RESPIRATORY: HAVE YOU BEEN SICK IN THE PAST WEEK? NO . FEVER NO . FLU LIKE SYMPTOMS? NO . COUGH NO . INTEGUMENTARY: DO YOU HAVE ANY RASHES OR OPEN SORES? NO . ALLERGIC/IMMUNO: ARE YOU ALLERGIC TO IV DYE? NO . ANY NEW ALLERGIES? NO . PSYCHIATRIC: DO YOU HAVE THOUGHTS OF HURTING YOURSELF OR SOMEONE ELSE? NO . ARE YOU ABUSED, NEGLECTED, OR IN AN UNSAFE ENVIRONMENT? NO . ENDOCRINOLOGY: ARE YOU DIABETIC? NO . OTHER: DO YOU NEED ANY PRESCRIPTIONS? NO . IF YES, PLEASE LIST: ____ . ANY NEW PROBLEMS WITH YOUR MEDICATIONS? NO . WHEN DID YOU LAST EAT? ____ . WHEN DID YOU LAST DRINK? ____ . WHAT DID YOU LAST DRINK? ____ . NAME OF PERSON DRIVING YOU HOME? ____ . DO YOU HAVE ANY OTHER QUESTIONS OR CONCERNS NO . VITAL SIGNS WT 201 LBS, HT 69 IN, BMI 29.68 INDEX, BP 164/100 MM HG, REPEAT BP 150/97 MM HG, HR 69 /MIN, RR 16 /MIN, TEMP 98.1 F, OXYGEN SAT % 97, REVIEWED BY: AD158/100 REPEAT MANUAL. EM. EXAMINATION GENERAL EXAMINATION: GENERALNO ACUTE DISTRESS, WELL NOURISHED AND HYDRATED. PSYCHAPPROPRIATE MOOD AND AFFECT . LUNGS:CLEAR TO AUSCULTATION BILATERALLY, NO WHEEZES, RHONCHI, RALES. HEART:NO MURMURS, REGULAR RATE AND RHYTHM. BACK: POINT TENDER L4-L5 AND L5-S1 BILATERALLY. SURROUNDING SKIN SHOWS NO ERYTHEMA, ECCHYMOSIS, INCREASED WARMTH, AND/OR SKIN OPTIONS NOTED. POSITIVE MODIFIED SLR BILATERALLY . MUSCULOSKELETAL:EQUAL STRENGTH OF THE LOWER EXTREMITIES BILATERALLY . ASSESSMENTS INTERVERTEBRAL DISC DISORDER WITH RADICULOPATHY OF LUMBOSACRAL REGION - M51.17 (PRIMARY) TREATMENT INTERVERTEBRAL DISC DISORDER WITH RADICULOPATHY OF LUMBOSACRAL REGION NOTES: LESI L4-L5 L5-S1 WITH CATHETER. CLINICAL NOTES: 58-YEAR-OLD MALE IN FOR POST LESI FOLLOW-UP. GIVEN PRESENTING SYMPTOMS AND RESULTS OF PHYSICAL EXAMINATION RECOMMENDED STARTING DICLOFENAC, AND LESI WITH A CATHETER. WILL SPEAK WITH PHARMACY REGARDING DICLOFENAC AND ELIQUIS CO ADMINISTRATION. PATIENT HAS EXPRESSED UNDERSTANDING OF AND WAS IN AGREEMENT WITH TREATMENT PLAN. GIVEN TIME TO ASK QUESTIONS AND EXPRESS CONCERNS.. OTHERS NOTES: DICLOFENAC MATERIAL WAS PRINTED. PROCEDURE CODES FA211 ESTABILISHED PATIENT [facility] CHARGE DISPOSITION & COMMUNICATION FOLLOW UP POST PROCEDURE (REASON: LESI L4-L5 L5-S1 WITH CATHETER) ELECTRONICALLY SIGNED BY SENDY ARRIOLA ON 01/01/2019 AT 11:14 AM EDT DISCLAIMER : THIS IS A VISIT SUMMARY EXTRACTED FROM THE [employer] CHART. IT IS NOT A COPY OF THE [employer] PROGRESS NOTE. ESAU
== END ==
LOC: M PAIN 11:15
PROVIDERS: ATTEND Family Medicine
DX: M51.17 Intervertebral disc disorders with radiculopathy, lumbosacral region (principal); J45.909 Unspecified asthma, uncomplicated; I10 Essential (primary) hypertension; Z87.891 Personal history of nicotine dependence; Z79.01 Long term (current) use of anticoagulants; Z79.899 Other long term (current) drug therapy

== ENCOUNTER 2018-12-30 03:50 | Emergency (ER) | payer BC, OTHER ==
[~2018-12-30] VITALS: Ht 175.3 cm; Wt 90.9 kg
[~2018-12-30 03:50] MED LIST changes: -AMLO2.5T3; +AMLO2.5T3 PO
[2018-12-30] MEDS ORDERED: ACETAMINOPHEN 500 MG TAB PO ONE (06:45)
[2018-12-30] MEDS ORDERED: LIDOCAINE 5% (LIDODERM) PATCH TD ONE (06:45)
[2018-12-30] MEDS ORDERED: diazePAM 5 MG TAB PO ONE (06:45)
[2018-12-30 08:24] VITALS: BP 138/78
[2018-12-30] MEDS ORDERED: **NOTE PATIENT COMMENT** MISC XX ONE (18:45)
== END 2018-12-30 08:41 | disposition home or self-care (01) ==
LOC: M ED 03:50
DX: S39.012A Strain of muscle, fascia and tendon of lower back, initial encounter (principal); G89.29 Other chronic pain; W22.8XXA Striking against or struck by other objects, initial encounter; Y92.512 Supermarket, store or market as the place of occurrence of the external cause; Y99.0 Civilian activity done for income or pay; I48.91 Unspecified atrial fibrillation; I10 Essential (primary) hypertension; J45.909 Unspecified asthma, uncomplicated; G47.33 Obstructive sleep apnea (adult) (pediatric); G43.909 Migraine, unspecified, not intractable, without status migrainosus; Z79.01 Long term (current) use of anticoagulants; Z87.891 Personal history of nicotine dependence

== ENCOUNTER 2019-01-18 04:55 | Emergency (ER) | payer BC, OTHER ==
[~2019-01-18] VITALS: Ht 175.3 cm; Wt 86.4 kg
[~2019-01-18 04:55] MED LIST changes: +AMLO2.5T3; -AMLO2.5T3 PO
[2019-01-18 05:38] LABS: BASO # 0.1 10^3/uL (0.0-0.2); BASO % 0.8 % (0.0-1.0); EOS # 0.2 10^3/uL (0.0-0.5); EOS % 3.1 % (0.0-3.0); HEMATOCRIT 42.1 % (42.0-52.0); HEMOGLOBIN 14.1 g/dl (13.5-17.5); LYMPH # 1.7 10^3/uL (1.5-5.0); LYMPH % 26.6 % (24.0-44.0); MEAN CORPUSCULAR HEMOGLOBIN 32.1 pg (27.0-33.0); MEAN CORPUSCULAR HGB CONC 33.5 g/dl (32.0-36.5); MEAN CORPUSCULAR VOLUME 95.9 fl (80.0-96.0); MONO # 0.6 10^3/uL (0.0-0.8); MONO % 9.1 % (0.0-5.0); NEUTROPHILS # 3.8 10^3/uL (1.5-8.5); NEUTROPHILS % 59.9 % (36.0-66.0); PLATELET COUNT, AUTOMATED 163 10^3/uL (150-450); RED BLOOD COUNT 4.39 10^6/uL (4.30-6.10); WHITE BLOOD COUNT 6.4 10^3/uL (4.0-10.0)
[2019-01-18] MEDS ORDERED: methylPREDNISolone INJ 125 MG/2 ML VIAL (J2930) IV ONE (06:15)
[2019-01-18] MEDS ORDERED: IPRATROPIUM 0.5MG/ALBUTEROL 2.5MG INH SOL UD 3ML (DUONEB)(J7620) NEB ONE (06:15)
[2019-01-18 06:32] LABS: BLOOD UREA NITROGEN 19 MG/DL (7-18); CALCIUM LEVEL 8.4 MG/DL (8.5-10.1); CARBON DIOXIDE LEVEL 28 MEQ/L (21-32); CHLORIDE LEVEL 113 MEQ/L (98-107); CK-MB VALUE MASS 4.2 NG/ML (<3.6); CPK CREATINE PHOSPHOKINASE 708 U/L (39-308); CREATININE FOR GFR 1.08 MG/DL (0.70-1.30); GLOMERULAR FILTRATION RATE > 60.0 (>56); GLUCOSE, FASTING 105 MG/DL (70-100); MB/CK RELATIVE INDEX 0.59 (< OR =4); POTASSIUM SERUM 3.8 MEQ/L (3.5-5.1); SODIUM LEVEL 145 MEQ/L (136-145); TROPONIN I < 0.02 NG/ML (< 0.10)
[2019-01-18] MEDS ORDERED: NS 1,000 ML IV ONE (07:45)
--- NOTE | 2019-01-18 07:52 | REP ---
Clinical: Cough and dyspnea. Technique: PA and lateral. Comparison: 08/17/2018. Findings: Elevation to the right hemidiaphragm again noted. No obvious focal consolidation, effusion, or pneumothorax. Mediastinum and cardiac silhouette are normal. Skeletal structures are intact. Impression: Chronic stable changes. No acute cardiopulmonary process appreciated. Electronically Signed by Ciaran Goddard MD 01/18/2019 07:44 A
[2019-01-18] MEDS ORDERED: amLODIPine 5 MG TAB PO STA (09:30)
[2019-01-18] MEDS ORDERED: VERAPAMIL 180MG EXTENDED RELEASE TABLET PO STA (09:30)
[2019-01-18 09:32] VITALS: BP 129/78
[2019-01-18 09:45] VITALS: BP 128/78
[2019-01-18] MEDS ORDERED: PRED20TA PO (09:46)
--- NOTE | 2019-01-18 15:34 | ECGEPIP ---
[facility] - ED Test Date: 2019-01-18 Pat Name: ALBERT KABA Department: Room: - Gender: Male Equine Intern: : 1960 Requested By: KARLA Shepard Order Number: [id number] Reading MD: Ysabel Michael Measurements Intervals [place] Rate: 66 P: 63 MT: 146 QRS: -9 QRSD: 105 T: 18 QT: 384 QTc: 403 Interpretive Statements SINUS RHYTHM MINIMAL VOLTAGE CRITERIA FOR LVH, CONSIDER NORMAL VARIANT SIMILAR 06/11/09 Electronically Signed on 01-18-2019 15:34:33 EDT by Ysabel Michael
== END 2019-01-18 10:15 | disposition home or self-care (01) ==
LOC: M ED 04:55
DX: J45.901 Unspecified asthma with (acute) exacerbation (principal); I48.91 Unspecified atrial fibrillation; I10 Essential (primary) hypertension; G47.33 Obstructive sleep apnea (adult) (pediatric); Z79.51 Long term (current) use of inhaled steroids; Z79.899 Other long term (current) drug therapy; Z86.73 Personal history of transient ischemic attack (TIA), and cerebral infarction without residual deficits; Z87.01 Personal history of pneumonia (recurrent); Z87.09 Personal history of other diseases of the respiratory system; Z82.5 Family history of asthma and other chronic lower respiratory diseases; Z83.3 Family history of diabetes mellitus; Z82.0 Family history of epilepsy and other diseases of the nervous system
CPT/HCPCS: 71046; 80048; 82550; 82553; 84443; 84484; 85025; 93005; 93041; 94640; 94760; 96361; 96374; 99285; J2930

== ENCOUNTER → 2019-02-23 | Outpatient (CLI) | payer BC ==
--- NOTE | 2019-02-23 15:18 | REP ---
RENAL ULTRASOUND: Real-time sonographic evaluation of the kidneys performed. Kidneys are normal in size and echotexture, right kidney measuring 12.6 x 6.0 x 6.3 cm and left kidney 11.8 x 6.9 x 6.9 cm. There is no hydronephrosis bilaterally. Cyst in the lower pole of the right kidney measures 3.9 x 3.0 x 3.5 cm with a thin internal septation. There is a 6 mm cyst in the lower pole of the left kidney. The urinary bladder measures 5.6 x 5.1 x 5.6 cm and no definite mass or calculus. IMPRESSION: Cyst with internal septation lower right kidney has been seen on prior CT studies dating back to 10/16/2016. Maximum transverse diameter on the 2017 study is 3.4 cm. 6 mm cyst lower pole left kidney. Electronically Signed by Luciano Russell MD 02/26/2019 09:35 A
== END ==
LOC: M RAD 10:26
PROVIDERS: ATTEND Nurse Practitioner Women's Health
DX: Q61.00 Congenital renal cyst, unspecified (principal)

== ENCOUNTER → 2019-03-16 | Outpatient (REF) | payer BC ==
[2019-03-16 13:29] LABS: APPEARANCE, URINE HAZY (CLEAR); BACTERIA, URINE AUTO NEGATIVE (NEGATIVE); BILIRUBIN, URINE AUTO NEGATIVE (NEGATIVE); BLOOD, URINE BLOOD 1+ (NEGATIVE); COLOR, URINE YELLOW (YELLOW); GLUCOSE, URINE (UA) AUTO NEGATIVE (NEGATIVE); KETONE, URINE AUTO TRACE mg/dL (NEGATIVE); LEUKOCYTE ESTERASE, URINE AUTO NEGATIVE (NEGATIVE); MUCUS, URINE SMALL (NEGATIVE); NITRITE, URINE AUTO NEGATIVE (NEGATIVE); PROTEIN, URINE AUTO 1+ mg/dL (NEGATIVE); RBC, URINE AUTO 10 /HPF (0-3); SPECIFIC GRAVITY URINE AUTO 1.029 (1.002-1.035); SQUAMOUS EPITHELIAL CELL UR AU 0 /HPF (0-6); UROBILINOGEN, URINE AUTO 0.2 mg/dL (0.0-2.0); WBC, URINE AUTO 2 /HPF (0-3)
== END ==
LOC: M SMT 13:13
PROVIDERS: ATTEND Nurse Practitioner Women's Health
DX: R31.29 Other microscopic hematuria (principal)

== ENCOUNTER → 2019-03-20 | Outpatient (CLI) | payer BC | LOC: M LAB 12:01 | PROVIDERS: ATTEND Nurse Practitioner Women's Health | DX: Z12.5 Encounter for screening for malignant neoplasm of prostate (principal) | CPT/HCPCS: 36415; G0103 ==

== ENCOUNTER 2019-03-29 01:18 | Emergency (ER) | payer BC, OTHER ==
[~2019-03-29] VITALS: Ht 177.8 cm; Wt 95.5 kg
[~2019-03-29 01:18] MED LIST changes: -AMLO2.5T3; +AMLO2.5T3 PO
[2019-03-29] MEDS ORDERED: AMPICILLIN SOD/SULBACTAM SOD 3 GM in D5W MINI-BAG PLUS 100 ML IV ONE (03:45)
[2019-03-29] MEDS ORDERED: MORPHINE 4 MG/ML 1ML VIAL/SYRINGE (J2270) IV ONE (04:00)
[2019-03-29] MEDS ORDERED: AUGM500T34 PO (04:03)
[2019-03-29] MEDS ORDERED: MORPHINE 4 MG/ML 1ML VIAL/SYRINGE (J2270) IM ONE (04:15)
[2019-03-29 05:29] VITALS: BP 159/67
[2019-03-30] MEDS ORDERED: MELO7.5T35 PO (07:38)
[2019-03-30] MEDS ORDERED: ADVA230A INH (11:16)
[2019-03-30] MEDS ORDERED: GABA600T4 PO (11:16)
[2019-03-30] MEDS ORDERED: AUGM500T34 PO (11:16)
[2019-03-30] MEDS ORDERED: ELIQ5TAB PO (11:16)
[2019-03-30] MEDS ORDERED: ALBU83IN INH (11:16)
[2019-03-30] MEDS ORDERED: PRED20TA PO (11:16)
[2019-03-30] MEDS ORDERED: META1TAB22 PO ×2 (11:16)
== END 2019-03-29 05:39 | disposition home or self-care (01) ==
LOC: M ED 01:18
DX: L03.115 Cellulitis of right lower limb (principal); I48.91 Unspecified atrial fibrillation; I10 Essential (primary) hypertension; J45.909 Unspecified asthma, uncomplicated; G89.29 Other chronic pain; M54.9 Dorsalgia, unspecified; F17.200 Nicotine dependence, unspecified, uncomplicated; Z79.01 Long term (current) use of anticoagulants; Z79.899 Other long term (current) drug therapy
CPT/HCPCS: 87040; 96374; 96375; 99284; J2270

== ENCOUNTER 2019-03-30 07:20 | Inpatient (IN) | payer OTHER, BC ==
[~2019-03-30] VITALS: Ht 172.7 cm; Wt 90.0 kg
[2019-03-30] MEDS ORDERED: MELO7.5T35 PO (07:38)
[2019-03-30] MEDS ORDERED: VANCOMYCIN HCL 1,000 MG, VIAL MATE ADAPTER 1 EACH in D5W 250 ML IV ONE (08:45)
[2019-03-30] MEDS ORDERED: NS 1,000 ML IV ONE (08:45)
[2019-03-30 09:14] LABS: BASO # 0.1 10^3/uL (0.0-0.2); BASO % 0.3 % (0.0-1.0); EOS # 0.1 10^3/uL (0.0-0.5); EOS % 0.9 % (0.0-3.0); HEMATOCRIT 42.4 % (42.0-52.0); HEMOGLOBIN 13.3 g/dl (13.5-17.5); LYMPH # 1.3 10^3/uL (1.5-5.0); LYMPH % 8.6 % (24.0-44.0); MEAN CORPUSCULAR HGB CONC 31.4 g/dl (32.0-36.5); MEAN CORPUSCULAR VOLUME 92.6 fl (80.0-96.0); MONO # 1.3 10^3/uL (0.0-0.8); MONO % 8.5 % (0.0-5.0); NEUTROPHILS # 12.3 10^3/uL (1.5-8.5); NEUTROPHILS % 80.8 % (36.0-66.0); PLATELET COUNT, AUTOMATED 209 10^3/uL (150-450); RED BLOOD COUNT 4.58 10^6/uL (4.30-6.10); WHITE BLOOD COUNT 15.3 10^3/uL (4.0-10.0)
[2019-03-30 09:38] LABS: BLOOD UREA NITROGEN 24 MG/DL (7-18); CALCIUM LEVEL 8.4 MG/DL (8.5-10.1); CARBON DIOXIDE LEVEL 23 MEQ/L (21-32); CHLORIDE LEVEL 108 MEQ/L (98-107); CREATININE FOR GFR 0.84 MG/DL (0.70-1.30); GLOMERULAR FILTRATION RATE > 60.0 (>56); GLUCOSE, FASTING 90 MG/DL (70-100); POTASSIUM SERUM 3.9 MEQ/L (3.5-5.1); SODIUM LEVEL 140 MEQ/L (136-145)
[2019-03-30] MEDS ORDERED: ADVA230A INH (11:16)
[2019-03-30] MEDS ORDERED: AUGM500T34 PO (11:16)
[2019-03-30] MEDS ORDERED: ELIQ5TAB PO (11:16)
[2019-03-30] MEDS ORDERED: PRED20TA PO (11:16)
[2019-03-30] MEDS ORDERED: META1TAB22 PO ×2 (11:16)
[2019-03-30] MEDS ORDERED: ALBU83IN INH (11:16)
[2019-03-30] MEDS ORDERED: GABA600T4 PO (11:16)
--- NOTE | 2019-03-30 12:12 | REP ---
Clinical: Bilateral lower extremity pain, swelling and erythema. Technique: Russell scale and color Doppler evaluation using linear high frequency transducer. Findings: Ultrasound examination of the right and left lower extremity deep venous structures from the common femoral vein to the popliteal vein demonstrates normal compressibility flow and wave patterns in response to respiration and augmentation. There is no evidence for deep venous thrombosis. 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 Impression: No evidence for deep venous thrombosis. Electronically Signed by Ciaran Goddard MD 03/30/2019 12:03 P
--- NOTE | 2019-03-30 12:13 | REP ---
Clinical: Cough and shortness of breath . Comparison: 01-18-19 . Technique: PA and lateral. Findings: The mediastinum and cardiac silhouette are normal. The lung melvin are clear and without acute consolidation, effusion, or pneumothorax. The skeletal structures are intact and normal. Impression: 1. No acute cardiopulmonary process. Electronically Signed by Ciraan Goddard MD 03/30/2019 12:04 P
[2019-03-30 12:15] VITALS: BP 170/84
[2019-03-30] MEDS: ADVAIR HFA 230/21MCG INHALER INH SCH ×2 (12:27→21:00)
[2019-03-30] MEDS: ALBUTEROL SULFATE 2.5 MG/0.5 ML INH NEB SOLN NEB SCH ×2 (12:39→20:00)
[2019-03-30] MEDS: APIXABAN 5 MG TAB (ELIQUIS) PO SCH ×2 (12:40→21:18)
[2019-03-30] MEDS: GABAPENTIN 300 MG CAP PO SCH ×2 (12:40→21:18)
[2019-03-30] MEDS: NS 1,000 ML IV SCH ×2 (12:40→22:30)
[2019-03-30] MEDS: METAXALONE 800 MG TABLET PO SCH ×2 (13:50→21:18)
[2019-03-30 14:00] VITALS: BP 174/80
[2019-03-30] MEDS: VANCOMYCIN HCL 1,000 MG, VIAL MATE ADAPTER 1 EACH in D5W 250 ML IV SCH ×2 (14:30→21:18)
--- NOTE | 2019-03-30 15:10 | PHACANCOPD ---
PHARMACY VANCOMYCIN DOSING Pt Demographics Demographics Patient Age:59 , Weight:90.000 , Gender: male Adjusted Body Weight Date: 03/30/19, Adjusted Body Weight: Kg Events Past 24 Hours Events Past 24 Hours: NO: Dialysis, Diuretic Therapy, Change in CrCl, Fever, Elevation in WBC, Pending Diagnostics, Pending Procedures, Other Vancomycin Vancomycin indication: cellulitis Vancomycin Target Ranges: 15-20 mcg/ml Vancomycin Load Y/N: Yes Load Dose Date Time Vancomycin Load Dose: 1000mg Date: 03/30 Time: ~0920 Vancomycin Dose Date: 03/30/19. Current Vancomycin Dose: [1g IV q8h @14] Intermittent Dosing?: No Labs Labs Item Value Date Time White Blood Count 15.3 10^3/uL H 03/30/19901 Creatinine 0.84 MG/DL 03/30/19901 Creatinine Clearance Date:03/30/19. Creatinine Clearance: [~90 ml/min]. Assessment and Plan Maintaining Current Dose?: Yes Reason for dose change: No Dose Change Pharmacist Note Pharmacist Note Date: 03/30/19. Pharmacist note: pt has been started on vancomycin for lower extremity cellulitis. Pt was seen in the ER yesterday and was given a prednisone taper and augmentin 500mg po TID, he came back today due to worsening symptoms. Blood culture drawn yesterday is NGTD. He has not been on vancomycin at our facility in the past, nor does he have an apparent hx of MRSA. I have started him on Vancomycin 1g q8h to begin ~5 hours after his first dose. I will continue to monitor pt over the weekend and order a trough as necessary. Gurdeep Larry Pharm.D. Mar 30, 2019 15:10
[2019-03-30] MEDS ORDERED: IPRATROPIUM 0.5MG/ALBUTEROL 2.5MG INH SOL UD 3ML (DUONEB)(J7620) NEB PRN (15:30)
[2019-03-30] MEDS ORDERED: VERAPAMIL 40 MG TAB PO SCH (16:00)
--- NOTE | 2019-03-30 16:01 | HPEPDOC ---
General Date of Admission Mar 30, 2019 at 11:21 Date of Service: Mar 30, 2019 Chief Complaint The patient is a 59-year-old male admitted with a reason for visit of Cellulitis Of Leg. Source: Patient, RN/MD, Old records Exam Limitations: No limitations Severity: Moderate Associated Symptoms: Cough, Diaphoresis, Chills, Weakness History of Present Illness 59 year old male with PMH of hypertension, Afib, chronic asthma, hyperlipidemia, chronic back pain irritable bowel syndrome, was in the ED on 03/29/19 for right thing redness, pain ans swelling . He was diagnosed with right thigh cellulitis given a dose of ceftriaxone and discharged with Augmentin po . He took 2 doses of the antibiotic then comes back today as he is feeling weak and tired and subjective fevers and now he has redness, pain and swelling of the left thigh. His right thigh is better today. 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 Now he has been having difficulty in bending on his knees and working. He also complained of a cold he had 2 weeks ago with cough and wheezing for which he was given a course of steroid taper by his boat mechanic which is is still on but is down to 10 mg. Since yesterday he feels his cough is again coming back and he is wheezing a little more. He not bringing up much phlegm. He had a Doppler of both the legs done which did not show any DVT. He was admitted for bilateral cellulitis of the thighs. Home Medications Scheduled Amlodipine Besylate (Amlodipine Besylate) 2.5 Mg Tab, 2.5 MG PO QHS, (Reported) Amoxicillin/Potassium Clav (Augmentin 500-125 Tablet) 1 Each Tablet, 500 MG PO TID, (Reported) FILLED 03/29/19 FOR 10 DAYS Apixaban (Eliquis) 5 Mg Tablet, 5 MG PO BID, (Reported) Atorvastatin Calcium (Atorvastatin Calcium) 40 Mg Tab, 40 MG PO QHS, (Reported) Fluticasone Propion/Salmeterol (Advair Hfa 230-21 Mcg Inhaler) 12 Gm Hfa.aer.ad, 2 PUFF INH BID, (Reported) Gabapentin (Gabapentin) 600 Mg Tablet, 600 MG PO BID, (Reported) Metaxalone (Metaxalone) 800 Mg Tablet, 800 MG PO BID, (Reported) Prednisone (Prednisone) 20 Mg Tablet, 10 MG PO QHS, (Reported) PATIENT WAS TAKING A TAPER DOSE, TOOK LAST DOSE OF 20MG 03/29/19. IS DUE TO BEGIN 10MG DAILY FOR 4 DAYS ON 03/30/19 Verapamil Hcl (Verelan) 180 Mg Cap, 180 MG PO BID, (Reported) Scheduled PRN Albuterol Sulf (Albuterol Sulfate) 2.5 Mg/3 Ml Vial.neb, 2.5 MG INH QID PRN for SHORTNESS OF BREATH, (Reported) Albuterol Sulfate (Proair Hfa) 108 Mcg/Act Aer, 2 PUFF INH Q4H PRN for SHORTNESS OF BREATH, (Reported) Meloxicam (Meloxicam) 7.5 Mg Tablet, 7.5 MG PO BID PRN for PAIN, (Reported) Metaxalone (Metaxalone) 800 Mg Tablet, 800 MG PO DAILY PRN for MUSCLE SPASMS, (Reported) Allergies Coded Allergies: No Known Allergies (Unverified , 12/30/18) Past Medical History Medical History hypertension, Afib, chronic asthma, hyperlipidemia, chronic back pain, irritable bowel syndrome. Surgical History back injections Family History Significant Family History: Asthma (and copd in father), Diabetes (mother and father both now, also siblings.) Social History * Smoker: non-smoker Alcohol: rarely Drugs: denies A-FIB/CHADSVASC A-FIB History Current/History of A-Fib/PAF?: Yes Current PO Anticoag Therapy: Yes Review of Systems Constitutional: Denies: Chills, Fever, Night Sweats Eyes: Denies: Pain, Vision change ENT: Denies: Head Aches, Ear Pain, Dysphagia Skin: Denies: Rash, Lesions, Breakdown Pulmonary: Reports: Cough Cardiovascular: Denies: Chest Pain, Palpitations, Orthopnea, Paroxysmal Noc. Dyspnea, Lt Headedness Gastrointestinal: Reports: Diarrhea (chronic); Denies: Nausea, Vomiting, Abdominal Pain Genitourinary: Denies: Dysuria, Frequency, Incontinence, Retention Hematologic: Denies: Bruising, Bleeding Excessively Musculoskeletal: Reports: Back Pain, Leg Pain (both the thighs) Neurological: Denies: Weakness, Numbness, Change in speech, Confusion Psych: Reports: Mood Normal; Denies: Depression, Memory Issues Physical Examination General Exam: Positive: Alert, Cooperative, No Acute Distress Eye Exam: Positive: PERRLA, Conjunctiva & lids normal, EOMI; Negative: Sclera icteric ENT Exam: Positive: Atraumatic, Mucous membr. moist/pink, Pharynx Normal Neck Exam: Positive: Supple; Negative: JVD, thyromegaly Chest Exam: Positive: Rhonchi, Wheezing Heart Exam: Positive: Rate Normal, Regular Rhythm, Normal S1, Normal S2; Negative: Murmurs, Rubs Abdomen Exam: Positive: Normal bowel sounds, Soft; Negative: Tenderness, Hepatospenomegaly Extremity Exam: Positive: Tenderness (left thigh), Swelling (left thigh); Negative: Clubbing, Cyanosis, Edema Skin Exam: Positive: Other skin issue (redness in both the thighs, left on the lateral aspect, right more on the medial aspect. ) Neuro Exam: Positive: Normal Speech, Strength at 5/5 X4 ext, Normal Tone Psych Exam: Positive: Mental status NL, Mood NL, Oriented x 3 Vital Signs Vital Signs Date Time Temp Pulse Resp B/P (MAP) Pulse Ox O2 Delivery O2 Flow Rate FiO2 03/30/19 14:00 99.1 94 19 174/80 (111) 95 Room Air Laboratory Data Labs 24H Laboratory Tests 2 03/30/19 09:02: Immature Granulocyte % (Auto) 0.9, Neutrophils (%) (Auto) 80.8H, Lymphocytes (%) (Auto) 8.6L, Monocytes (%) (Auto) 8.5H, Eosinophils (%) (Auto) 0.9, Basophils (%) (Auto) 0.3, Neutrophils # (Auto) 12.3H, Lymphocytes # (Auto) 1.3L, Monocytes # (Auto) 1.3H, Eosinophils # (Auto) 0.1, Basophils # (Auto) 0.1, Nucleated Red B lood Cells % (auto) 0.0, Anion Gap 9, Glomerular Filtration Rate > 60.0, Lactic Acid Level 0.8, Calcium Level 8.4L CBC/BMP Laboratory Tests 03/30/19 09:02 Assessment/Plan 59 year old male with PMH of hypertension, Afib, chronic asthma, hyperlipidemia, chronic back pain was in the ED on 03/29/19 for right thing redness, pain ans swelling . He was diagnosed with right thigh cellulitis given a dose of ceftriaxone and discharged with Augmentin po . He took 2 doses of the antibiotic then comes back today as he is feeling weak and tired and subjective fevers and now he has redness, pain and swelling of the left thigh. His right thigh is better today. 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 Now he has been having difficulty in bending on his knees and working. He also complained of a cold he had 2 weeks ago with cough and wheezing for which he was given a course of steroid taper by his boat mechanic which is is still on but is down to 10 mg. Since yesterday he feels his cough is again coming back and he is wheezing a little more. He not bringing up much phlegm. He had a Doppler of both the legs done which did not show any DVT. He was admitted for bilateral cellulitis of the thighs. Cellulitis of the thighs will give vancomycin. blood cultures form 03/29 are coming back negative Hypertension continue verapamil SR. A fib rate is controlled, in sinus rhythm continue verapamil continue eliquis. Asthma/ copd exacerbation continue albuterol and duonebs, advair. continue prednisone 10 mg. Hyperlipidemia continue statin Chronic back pain continue gabapentin, metaxalone. Plan / VTE VTE Prophylaxis Ordered?: Yes SANAM JAMESON MD Mar 30, 2019 16:01
[2019-03-30] MEDS ORDERED: ACETAMINOPHEN 500 MG TAB PO PRN (18:45)
[2019-03-30] MEDS ORDERED: VERAPAMIL 120 MG SR TAB PO SCH (21:00)
[2019-03-30] MEDS: VERAPAMIL 180MG EXTENDED RELEASE TABLET PO SCH (21:18)
[2019-03-30] MEDS: predniSONE 10 MG TAB PO SCH (21:18)
[2019-03-30] MEDS: ATORVASTATIN 20 MG TAB PO SCH (21:18)
[2019-03-30 22:00] VITALS: BP 164/82
[2019-03-31] MEDS: ALBUTEROL SULFATE 2.5 MG/0.5 ML INH NEB SOLN NEB SCH ×4 (01:38→20:25)
[2019-03-31] MEDS: VANCOMYCIN HCL 1,000 MG, VIAL MATE ADAPTER 1 EACH in D5W 250 ML IV SCH ×3 (05:54→21:50)
[2019-03-31 06:00] VITALS: BP 134/76
[2019-03-31 07:00] LABS: BASO % 0.4 % (0.0-1.0); EOS # 0.1 10^3/uL (0.0-0.5); EOS % 0.4 % (0.0-3.0); HEMATOCRIT 42.5 % (42.0-52.0); HEMOGLOBIN 13.3 g/dl (13.5-17.5); LYMPH # 0.9 10^3/uL (1.5-5.0); LYMPH % 7.7 % (24.0-44.0); MEAN CORPUSCULAR HGB CONC 31.3 g/dl (32.0-36.5); MEAN CORPUSCULAR VOLUME 92.8 fl (80.0-96.0); MONO # 0.8 10^3/uL (0.0-0.8); MONO % 6.6 % (0.0-5.0); NEUTROPHILS # 9.6 10^3/uL (1.5-8.5); PLATELET COUNT, AUTOMATED 199 10^3/uL (150-450); RED BLOOD COUNT 4.58 10^6/uL (4.30-6.10); WHITE BLOOD COUNT 11.4 10^3/uL (4.0-10.0)
[2019-03-31 07:20] LABS: BLOOD UREA NITROGEN 18 MG/DL (7-18); CALCIUM LEVEL 8.1 MG/DL (8.5-10.1); CARBON DIOXIDE LEVEL 26 MEQ/L (21-32); CHLORIDE LEVEL 107 MEQ/L (98-107); CREATININE FOR GFR 0.87 MG/DL (0.70-1.30); GLOMERULAR FILTRATION RATE > 60.0 (>56); GLUCOSE, FASTING 145 MG/DL (70-100); POTASSIUM SERUM 3.9 MEQ/L (3.5-5.1); SODIUM LEVEL 138 MEQ/L (136-145)
[2019-03-31] MEDS: ADVAIR HFA 230/21MCG INHALER INH SCH ×2 (07:31→20:27)
[2019-03-31] MEDS: METAXALONE 800 MG TABLET PO SCH ×2 (08:16→21:49)
[2019-03-31] MEDS: VERAPAMIL 180MG EXTENDED RELEASE TABLET PO SCH ×2 (08:17→21:49)
[2019-03-31] MEDS: APIXABAN 5 MG TAB (ELIQUIS) PO SCH ×2 (08:17→21:50)
[2019-03-31] MEDS: NS 1,000 ML IV SCH ×2 (08:17→17:37)
[2019-03-31] MEDS: GABAPENTIN 300 MG CAP PO SCH ×2 (08:17→21:50)
--- NOTE | 2019-03-31 11:57 | IPNPDOC ---
Subjective Date Seen The patient was seen on 03/31/19. Subjective Chief Complaint/HPI Says his right leg has improved no further pain the left is better but still painful though the redness and the swelling is a little better, no fever or chills, says his breathing is good. Objective Physical Examination General Exam: Positive: Alert, Cooperative, No Acute Distress Eye Exam: Positive: PERRLA, Conjunctiva & lids normal, EOMI; Negative: Sclera icteric ENT Exam: Positive: Atraumatic, Mucous membr. moist/pink, Pharynx Normal Neck Exam: Positive: Supple; Negative: JVD, thyromegaly Chest Exam: Positive: Rhonchi, Wheezing Heart Exam: Positive: Rate Normal, Regular Rhythm, Normal S1, Normal S2; Negative: Murmurs, Rubs Abdomen Exam: Positive: Normal bowel sounds, Soft; Negative: Tenderness, Hepatospenomegaly Extremity Exam: Positive: Tenderness (left thigh), Swelling (left thigh); Negative: Clubbing, Cyanosis, Edema Skin Exam: Positive: Other skin issue (redness in both the thighs, left on the lateral aspect, right more on the medial aspect. ) Neuro Exam: Positive: Normal Speech, Strength at 5/5 X4 ext, Normal Tone Psych Exam: Positive: Mental status NL, Mood NL, Oriented x 3 Assessment /Plan Assessment 59 year old male with PMH of hypertension, Afib, chronic asthma, hyperlipidemia, chronic back pain was in the ED on 03/29/19 for right thing redness, pain ans swelling . He was diagnosed with right thigh cellulitis given a dose of ceftriaxone and discharged with Augmentin po . He took 2 doses of the antibiotic then comes back today as he is feeling weak and tired and subjective fevers and now he has redness, pain and swelling of the left thigh. His right thigh is better today. 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 Now he has been having difficulty in bending on his knees and working. He also complained of a cold he had 2 weeks ago with cough and wheezing for which he was given a course of steroid taper by his charger tester which is is still on but is down to 10 mg. Since yesterday he feels his cough is again coming back and he is wheezing a little more. He not bringing up much phlegm. He had a Doppler of both the legs done which did not show any DVT. He was admitted for bilateral cellulitis of the thighs. Cellulitis of the thighs will give vancomycin. blood cultures form 03/29 are coming back negative Hypertension continue verapamil SR. A fib rate is controlled, in sinus rhythm continue verapamil continue eliquis. Asthma exacerbation continue albuterol and duonebs, advair. continue prednisone 10 mg. Hyperlipidemia continue statin Chronic back pain continue gabapentin, metaxalone. Plan/VTE VTE Prophylaxis Ordered?: Yes VS, I&O, 24H, Fishbone Vital Signs/I&O Vital Signs Date Time Temp Pulse Resp B/P (MAP) Pulse Ox O2 Delivery O2 Flow Rate FiO2 03/31/19 08:17 75 134/76 03/31/19 06:00 98.2 18 94 Room Air I&O- Last 24 Hours up to 6 AM 03/31/19 05:59 Intake Total 2720 ml Output Total 3700 ml Balance -980 ml Laboratory Data 24H LABS Laboratory Tests 2 03/31/19 06:20: Immature Granulocyte % (Auto) 0.9, Neutrophils (%) (Auto) 84.0H, Lymphocytes (%) (Auto) 7.7L, Monocytes (%) (Auto) 6.6H, Eosinophils (%) (Auto) 0.4, Basophils (%) (Auto) 0.4, Neutrophils # (Auto) 9.6H, Lymphocytes # (Auto) 0.9L, Monocytes # (Auto) 0.8, Eosinophils # (Auto) 0.1, Basophils # (Auto) 0.0, Nucleated Red Blood Cells % (auto) 0.0, Anion Gap 5L, Glomerular Filtration Rate > 60.0, Calcium Level 8.1L CBC/BMP Laboratory Tests 03/31/19 06:20 SANAM JAMESON MD Mar 31, 2019 11:57
[2019-03-31 14:00] VITALS: BP 142/65
[2019-03-31] MEDS: predniSONE 10 MG TAB PO SCH (21:49)
[2019-03-31] MEDS: ATORVASTATIN 20 MG TAB PO SCH (21:50)
[2019-03-31 22:00] VITALS: BP 156/71
[2019-04-01] MEDS: ALBUTEROL SULFATE 2.5 MG/0.5 ML INH NEB SOLN NEB SCH ×5 (01:26→20:39)
[2019-04-01 05:45] LABS: BASO % 0.4 % (0.0-1.0); EOS # 0.1 10^3/uL (0.0-0.5); EOS % 0.9 % (0.0-3.0); HEMATOCRIT 42.6 % (42.0-52.0); HEMOGLOBIN 13.9 g/dl (13.5-17.5); LYMPH # 0.7 10^3/uL (1.5-5.0); LYMPH % 7.9 % (24.0-44.0); MEAN CORPUSCULAR HEMOGLOBIN 29.8 pg (27.0-33.0); MEAN CORPUSCULAR HGB CONC 32.6 g/dl (32.0-36.5); MEAN CORPUSCULAR VOLUME 91.4 fl (80.0-96.0); MONO # 0.6 10^3/uL (0.0-0.8); MONO % 6.8 % (0.0-5.0); NEUTROPHILS # 7.8 10^3/uL (1.5-8.5); NEUTROPHILS % 83.1 % (36.0-66.0); PLATELET COUNT, AUTOMATED 203 10^3/uL (150-450); RED BLOOD COUNT 4.66 10^6/uL (4.30-6.10); WHITE BLOOD COUNT 9.4 10^3/uL (4.0-10.0)
[2019-04-01 06:00] VITALS: BP 142/84
[2019-04-01] MEDS: VANCOMYCIN HCL 1,000 MG, VIAL MATE ADAPTER 1 EACH in D5W 250 ML IV SCH ×3 (06:00→21:49)
[2019-04-01 06:14] LABS: BLOOD UREA NITROGEN 13 MG/DL (7-18); CALCIUM LEVEL 8.2 MG/DL (8.5-10.1); CARBON DIOXIDE LEVEL 24 MEQ/L (21-32); CHLORIDE LEVEL 110 MEQ/L (98-107); CREATININE FOR GFR 0.84 MG/DL (0.70-1.30); GLOMERULAR FILTRATION RATE > 60.0 (>56); GLUCOSE, FASTING 120 MG/DL (70-100); POTASSIUM SERUM 4.2 MEQ/L (3.5-5.1); SODIUM LEVEL 142 MEQ/L (136-145); VANCOMYCIN LEVEL TROUGH 8.2 UG/ML (10.0-20.0)
--- NOTE | 2019-04-01 06:54 | PHACANCOPD ---
PHARMACY VANCOMYCIN DOSING Pt Demographics Demographics Patient Age:59 , Weight:90.000 , Gender: male Adjusted Body Weight Date: 03/30/19, Adjusted Body Weight: Kg Vancomycin Vancomycin indication: cellulitis Vancomycin Target Ranges: 15-20 mcg/ml Vancomycin Load Y/N: Yes Load Dose Date Time Vancomycin Load Dose: 1000mg Date: 03/30 Time: ~0920 Vancomycin Dose Date: 04/01/19. Current Vancomycin Dose: [1.5gm q6h@14] Date: 03/30/19. Current Vancomycin Dose: [1g IV q8h @14] Intermittent Dosing?: No Labs Creatinine Clearance Date:03/30/19. Creatinine Clearance: [~90 ml/min]. Assessment and Plan Maintaining Current Dose?: No Reason for dose change: Trough too low Pharmacist Note Pharmacist Note Date: 04/01/19. Pharmacist note:Vancomycin trough drawn this morning@5:35=8.2. SCR=0.84, CRCL~100(trough goal=15-20).Will change Vancomycin regimen to 1500mg iv q8h to begin this morning. Next trough is scheduled for 04/02@1300 Date: 03/30/19. Pharmacist note: pt has been started on vancomycin for lower extremity cellulitis. Pt was seen in the ER yesterday and was given a prednisone taper and augmentin 500mg po TID, he came back today due to worsening symptoms. Blood culture drawn yesterday is NGTD. He has not been on vancomycin at our facility in the past, nor does he have an apparent hx of MRSA. I have started him on Vancomycin 1g q8h to begin ~5 hours after his first dose. I will continue to monitor pt over the weekend and order a trough as necessary. VALERIE LOBO [facility]ARMAC[facility] Apr 01, 2019 06:54
[2019-04-01] MEDS: VANCOMYCIN HCL 500 MG in D5W MINI-BAG PLUS 100 ML IV SCH ×3 (07:12→23:14)
[2019-04-01] MEDS: ADVAIR HFA 230/21MCG INHALER INH SCH ×2 (07:31→20:39)
--- NOTE | 2019-04-01 08:39 | IPNPDOC ---
Subjective Date Seen The patient was seen on 04/01/19. Subjective Chief Complaint/HPI still will pain and spasm of the muscle of the left thigh, with redness and swelling. which has infact cleared from lobito bottom but moved upwards towards the groin. has difficulty in bending that knee. His right thigh inflammation has resolved. and no difficulty in bending the right knee. Objective Physical Examination General Exam: Positive: Alert, Cooperative, No Acute Distress Eye Exam: Positive: PERRLA, Conjunctiva & lids normal, EOMI; Negative: Sclera icteric ENT Exam: Positive: Atraumatic, Mucous membr. moist/pink, Pharynx Normal Neck Exam: Positive: Supple; Negative: JVD, thyromegaly Chest Exam: Positive: Rhonchi, Wheezing Heart Exam: Positive: Rate Normal, Regular Rhythm, Normal S1, Normal S2; Negative: Murmurs, Rubs Abdomen Exam: Positive: Normal bowel sounds, Soft; Negative: Tenderness, Hepatospenomegaly Extremity Exam: Positive: Tenderness (left thigh), Swelling (left thigh); Negative: Clubbing, Cyanosis, Edema Skin Exam: Positive: Other skin issue (redness in both the thighs, left on the lateral aspect, right more on the medial aspect. ) Neuro Exam: Positive: Normal Speech, Strength at 5/5 X4 ext, Normal Tone Psych Exam: Positive: Mental status NL, Mood NL, Oriented x 3 Assessment /Plan Assessment 59 year old male with PMH of hypertension, Afib, chronic asthma, hyperlipidemia, chronic back pain was in the ED on 03/29/19 for right thing redness, pain ans swelling . He was diagnosed with right thigh cellulitis given a dose of ceftriaxone and discharged with Augmentin po . He took 2 doses of the antibiotic then comes back today as he is feeling weak and tired and subjective fevers and now he has redness, pain and swelling of the left thigh. His right thigh is better today. 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 Now he has been having difficulty in bending on his knees and working. He also complained of a cold he had 2 weeks ago with cough and wheezing for which he was given a course of steroid taper by his profiler hand which is is still on but is down to 10 mg. Since yesterday he feels his cough is again coming back and he is wheezing a little more. He not bringing up much phlegm. He had a Doppler of both the legs done which did not show any DVT. He was admitted for bilateral cellulitis of the thighs. Cellulitis of the thighs/ myositis will give vancomycin. blood cultures form 03/29 are coming back negative right improved, left is moving upwards. Hypertension continue verapamil SR. A fib rate is controlled, in sinus rhythm continue verapamil continue eliquis. Asthma exacerbation continue albuterol and duonebs, advair. continue prednisone 10 mg. Hyperlipidemia continue statin Chronic back pain continue gabapentin, metaxalone. Plan/VTE VTE Prophylaxis Ordered?: Yes VS, I&O, 24H, Fishbone Vital Signs/I&O Vital Signs Date Time Temp Pulse Resp B/P (MAP) Pulse Ox O2 Delivery O2 Flow Rate FiO2 04/01/19 06:00 97.1 73 20 142/84 (103) 95 03/31/19 14:00 Room Air I&O- Last 24 Hours up to 6 AM 04/01/19 05:59 Intake Total 2790 ml Output Total 3750 ml Balance -960 ml Laboratory Data 24H LABS Laboratory Tests 2 04/01/19 05:35: Immature Granulocyte % (Auto) 0.9, Neutrophils (%) (Auto) 83.1H, Lymphocytes (%) (Auto) 7.9L, Monocytes (%) (Auto) 6.8H, Eosinophils (%) (Auto) 0.9, Basophils (%) (Auto) 0.4, Neutrophils # (Auto) 7.8, Lymphocytes # (Auto) 0.7L, Monocytes # (Auto) 0.6, Eosinophils # (Auto) 0.1, Basophils # (Auto) 0.0, Nucleated Red Blood Cells % (auto) 0.0, Anion Gap 8, Glomerular Filtration Rate > 60.0, Calcium Level 8.2L, Vancomycin Level Trough 8.2L CBC/BMP Laboratory Tests 04/01/19 05:35 SANAM JAMESON MD Apr 01, 2019 08:39
[2019-04-01] MEDS: METAXALONE 800 MG TABLET PO SCH ×2 (08:55→21:49)
[2019-04-01] MEDS: GABAPENTIN 300 MG CAP PO SCH ×2 (08:55→21:49)
[2019-04-01] MEDS: APIXABAN 5 MG TAB (ELIQUIS) PO SCH ×2 (08:55→21:48)
[2019-04-01] MEDS: NS 1,000 ML IV SCH ×3 (08:57→23:30)
[2019-04-01] MEDS: VERAPAMIL 180MG EXTENDED RELEASE TABLET PO SCH ×2 (08:57→21:53)
[2019-04-01 14:00] VITALS: BP 135/65
[2019-04-01] MEDS ORDERED: KETOROLAC 30 MG/ML VIAL (J1885) IV ONE (18:00)
[2019-04-01] MEDS: ATORVASTATIN 20 MG TAB PO SCH (21:48)
[2019-04-01] MEDS: predniSONE 10 MG TAB PO SCH (21:49)
[2019-04-01 22:00] VITALS: BP 128/62
[2019-04-02] MEDS: ALBUTEROL SULFATE 2.5 MG/0.5 ML INH NEB SOLN NEB SCH ×4 (02:00→20:57)
[2019-04-02] MEDS: VANCOMYCIN HCL 1,000 MG, VIAL MATE ADAPTER 1 EACH in D5W 250 ML IV SCH ×3 (05:56→21:51)
[2019-04-02 06:00] VITALS: BP 153/79
[2019-04-02 06:04] LABS: BASO # 0.1 10^3/uL (0.0-0.2); BASO % 0.7 % (0.0-1.0); EOS # 0.1 10^3/uL (0.0-0.5); EOS % 1.4 % (0.0-3.0); HEMATOCRIT 41.9 % (42.0-52.0); HEMOGLOBIN 13.4 g/dl (13.5-17.5); LYMPH # 0.7 10^3/uL (1.5-5.0); LYMPH % 8.6 % (24.0-44.0); MEAN CORPUSCULAR HEMOGLOBIN 29.5 pg (27.0-33.0); MEAN CORPUSCULAR VOLUME 92.1 fl (80.0-96.0); MONO # 0.5 10^3/uL (0.0-0.8); MONO % 6.6 % (0.0-5.0); NEUTROPHILS # 6.3 10^3/uL (1.5-8.5); NEUTROPHILS % 81.8 % (36.0-66.0); PLATELET COUNT, AUTOMATED 216 10^3/uL (150-450); RED BLOOD COUNT 4.55 10^6/uL (4.30-6.10); WHITE BLOOD COUNT 7.7 10^3/uL (4.0-10.0)
[2019-04-02 06:34] LABS: BLOOD UREA NITROGEN 15 MG/DL (7-18); CALCIUM LEVEL 8.3 MG/DL (8.5-10.1); CARBON DIOXIDE LEVEL 25 MEQ/L (21-32); CHLORIDE LEVEL 110 MEQ/L (98-107); CREATININE FOR GFR 0.91 MG/DL (0.70-1.30); GLOMERULAR FILTRATION RATE > 60.0 (>56); GLUCOSE, FASTING 178 MG/DL (70-100); POTASSIUM SERUM 4.6 MEQ/L (3.5-5.1); SODIUM LEVEL 143 MEQ/L (136-145)
[2019-04-02] MEDS: VANCOMYCIN HCL 500 MG in D5W MINI-BAG PLUS 100 ML IV SCH ×3 (07:09→23:21)
--- NOTE | 2019-04-02 07:49 | REP ---
Clinical: Cellulitis. Possible abscess. Technique: Real time pete scale ultrasound examination using linear high frequency transducer. Findings: Directed ultrasound examination overlying the left lateral thigh at the site of maximal erythema and pain demonstrates significant subcutaneous edema without discrete fluid collection/abscess or mass lesion. Impression: Subcutaneous edema. No abscess or mass lesion. Electronically Signed by Ciaran Goddard MD 04/02/2019 07:40 A
[2019-04-02] MEDS: ADVAIR HFA 230/21MCG INHALER INH SCH ×2 (08:00→20:57)
[2019-04-02] MEDS: VERAPAMIL 180MG EXTENDED RELEASE TABLET PO SCH ×2 (08:23→20:47)
[2019-04-02] MEDS: METAXALONE 800 MG TABLET PO SCH ×2 (08:23→20:47)
[2019-04-02] MEDS: NS 1,000 ML IV SCH ×2 (08:23→18:41)
[2019-04-02] MEDS: GABAPENTIN 300 MG CAP PO SCH ×2 (08:23→20:47)
[2019-04-02] MEDS: APIXABAN 5 MG TAB (ELIQUIS) PO SCH ×2 (08:23→20:47)
--- NOTE | 2019-04-02 10:29 | IPNPDOC ---
Subjective Date Seen The patient was seen on 04/02/19. Subjective Chief Complaint/HPI Feeling better this am. The inflammation of the left is improving, the right one has resolved. No fever or chills, no chest pain. Still has some shortness of breath. Objective Physical Examination General Exam: Positive: Alert, Cooperative, No Acute Distress Eye Exam: Positive: PERRLA, Conjunctiva & lids normal, EOMI; Negative: Sclera icteric ENT Exam: Positive: Atraumatic, Mucous membr. moist/pink, Pharynx Normal Neck Exam: Positive: Supple; Negative: JVD, thyromegaly Chest Exam: Positive: Rhonchi, Wheezing Heart Exam: Positive: Rate Normal, Regular Rhythm, Normal S1, Normal S2; Negative: Murmurs, Rubs Abdomen Exam: Positive: Normal bowel sounds, Soft; Negative: Tenderness, Hepatospenomegaly Extremity Exam: Positive: Tenderness (left thigh), Swelling (left thigh); Negative: Clubbing, Cyanosis, Edema Skin Exam: Positive: Other skin issue (some redness and swelling on the left thigh only on the lateral aspect. ) Neuro Exam: Positive: Normal Speech, Strength at 5/5 X4 ext, Normal Tone Psych Exam: Positive: Mental status NL, Mood NL, Oriented x 3 Assessment /Plan Assessment 59 year old male with PMH of hypertension, Afib, chronic asthma, hyperlipidemia, chronic back pain was in the ED on 03/29/19 for right thing redness, pain ans swelling . He was diagnosed with right thigh cellulitis given a dose of ceftriaxone and discharged with Augmentin po . He took 2 doses of the antibiotic then comes back today as he is feeling weak and tired and subjective fevers and now he has redness, pain and swelling of the left thigh. His right thigh is better today. 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 Now he has been having difficulty in bending on his knees and working. He also complained of a cold he had 2 weeks ago with cough and wheezing for which he was given a course of steroid taper by his dye range feeder which is is still on but is down to 10 mg. Since yesterday he feels his cough is again coming back and he is wheezing a little more. He not bringing up much phlegm. He had a Doppler of both the legs done which did not show any DVT. He was admitted for bilateral cellulitis of the thighs. Cellulitis of the thighs/ myositis will give vancomycin. blood cultures form 03/29 are coming back negative right improved, left is better this am. Left thigh US did not show any collection or abscess, just subcutaneous edema. Hypertension continue verapamil SR. A fib rate is controlled, in sinus rhythm continue verapamil continue eliquis. Asthma exacerbation continue albuterol and duonebs, advair. continue prednisone 10 mg. Hyperlipidemia continue statin Chronic back pain continue gabapentin, metaxalone. Plan/VTE VTE Prophylaxis Ordered?: Yes VS, I&O, 24H, Fishbone Vital Signs/I&O Vital Signs Date Time Temp Pulse Resp B/P (MAP) Pulse Ox O2 Delivery O2 Flow Rate FiO2 04/02/19 08:23 71 153/79 04/02/19 06:00 96.6 20 95 04/01/19 14:00 Room Air I&O- Last 24 Hours up to 6 AM 04/02/19 06:00 Intake Total 2530 ml Output Total 3150 ml Balance -620 ml Laboratory Data 24H LABS Laboratory Tests 2 04/02/19 05:39: Immature Granulocyte % (Auto) 0.9, Neutrophils (%) (Auto) 81.8H, Lymphocytes (%) (Auto) 8.6L, Monocytes (%) (Auto) 6.6H, Eosinophils (%) (Auto) 1.4, Basophils (%) (Auto) 0.7, Neutrophils # (Auto) 6.3, Lymphocytes # (Auto) 0.7L, Monocytes # (Auto) 0.5, Eosinophils # (Auto) 0.1, Basophils # (Auto) 0.1, Nucleated Red Blood Cells % (auto) 0.0, Anion Gap 8, Glomerular Filtration Rate > 60.0, Calcium Level 8.3L CBC/BMP Laboratory Tests 04/02/19 05:39 SANAM JAMESON MD Apr 02, 2019 10:27
[2019-04-02 20:47] VITALS: BP 166/86
[2019-04-02] MEDS: ATORVASTATIN 20 MG TAB PO SCH (20:47)
[2019-04-02] MEDS: predniSONE 10 MG TAB PO SCH (20:47)
[2019-04-02 22:00] VITALS: BP 166/86
[2019-04-03] MEDS: ALBUTEROL SULFATE 2.5 MG/0.5 ML INH NEB SOLN NEB SCH ×4 (01:29→20:00)
[2019-04-03] MEDS: NS 1,000 ML IV SCH (02:33)
[2019-04-03 05:53] LABS: BASO % 0.5 % (0.0-1.0); EOS # 0.1 10^3/uL (0.0-0.5); HEMATOCRIT 43.3 % (42.0-52.0); HEMOGLOBIN 13.7 g/dl (13.5-17.5); LYMPH # 0.8 10^3/uL (1.5-5.0); LYMPH % 10.3 % (24.0-44.0); MEAN CORPUSCULAR HEMOGLOBIN 29.1 pg (27.0-33.0); MEAN CORPUSCULAR HGB CONC 31.6 g/dl (32.0-36.5); MEAN CORPUSCULAR VOLUME 91.9 fl (80.0-96.0); MONO # 0.5 10^3/uL (0.0-0.8); MONO % 6.6 % (0.0-5.0); NEUTROPHILS # 6.6 10^3/uL (1.5-8.5); NEUTROPHILS % 80.7 % (36.0-66.0); PLATELET COUNT, AUTOMATED 214 10^3/uL (150-450); RED BLOOD COUNT 4.71 10^6/uL (4.30-6.10); WHITE BLOOD COUNT 8.1 10^3/uL (4.0-10.0)
[2019-04-03] MEDS: VANCOMYCIN HCL 1,000 MG, VIAL MATE ADAPTER 1 EACH in D5W 250 ML IV SCH ×2 (05:56→14:29)
[2019-04-03 06:00] VITALS: BP 150/86
[2019-04-03 06:19] LABS: BLOOD UREA NITROGEN 14 MG/DL (7-18); CALCIUM LEVEL 8.5 MG/DL (8.5-10.1); CARBON DIOXIDE LEVEL 27 MEQ/L (21-32); CHLORIDE LEVEL 107 MEQ/L (98-107); CREATININE FOR GFR 0.99 MG/DL (0.70-1.30); GLOMERULAR FILTRATION RATE > 60.0 (>56); GLUCOSE, FASTING 104 MG/DL (70-100); SODIUM LEVEL 143 MEQ/L (136-145)
[2019-04-03] MEDS: VANCOMYCIN HCL 500 MG in D5W MINI-BAG PLUS 100 ML IV SCH ×2 (07:18→15:54)
[2019-04-03] MEDS: ADVAIR HFA 230/21MCG INHALER INH SCH (08:45)
[2019-04-03] MEDS: VERAPAMIL 180MG EXTENDED RELEASE TABLET PO SCH (09:00)
[2019-04-03] MEDS: METAXALONE 800 MG TABLET PO SCH (09:00)
[2019-04-03] MEDS: GABAPENTIN 300 MG CAP PO SCH (09:00)
[2019-04-03] MEDS: APIXABAN 5 MG TAB (ELIQUIS) PO SCH (09:01)
[2019-04-03] MEDS ORDERED: LISI-542 PO (10:27)
--- NOTE | 2019-04-03 10:33 | DS.PDOC ---
Discharge Summary General Date of Admission Mar 30, 2019 at 11:21 Date of Discharge 04/03/19 Discharge Summary PROCEDURES PERFORMED DURING STAY: [None]. DISCHARGE DIAGNOSES: Bilateral thigh cellulitis SECONDARY DIAGNOSIS: Hypertension, Afib, chronic asthma, hyperlipidemia, chronic back pain COMPLICATIONS/CHIEF COMPLAINT: Cellulitis Of Leg. HISTORY OF PRESENT ILLNESS: See History and physical HOSPITAL COURSE: 59 year old male with PMH of hypertension, Afib, chronic asthma, hyperlipidemia, chronic back pain was in the ED on 03/29/19 for right thing redness, pain ans swelling . He was diagnosed with right thigh cellulitis given a dose of ceftriaxone and discharged with Augmentin po . He took 2 doses of the antibiotic then comes back today as he is feeling weak and tired and subjective fevers and now he has redness, pain and swelling of the left thigh. His right thigh is better today. 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 Now he has been having difficulty in bending on his knees and working. He also complained of a cold he had 2 weeks ago with cough and wheezing for which he was given a course of steroid taper by his car dispatcher which is is still on but is down to 10 mg. Since yesterday he feels his cough is again coming back and he is wheezing a little more. He not bringing up much phlegm. He had a Doppler of both the legs done which did not show any DVT. He was admitted for bilateral cellulitis of the thighs. Cellulitis of both the thighs got 5 days of vancomycin. will finish another 3 days of Augmentin at home. blood cultures form 03/29 are coming back negative right improved, left is better this am. Left thigh US did not show any collection or abscess, just subcutaneous edema. Hypertension continue verapamil SR. A fib rate is controlled, in sinus rhythm continue verapamil continue eliquis. Asthma exacerbation continue albuterol and duonebs, advair. continue prednisone 10 mg. Hyperlipidemia continue statin Chronic back pain continue gabapentin, metaxalone. DISCHARGE MEDICATIONS: Please see below. ALLERGIES: Please see below. PHYSICAL EXAMINATION ON DISCHARGE: VITAL SIGNS: Please see below. General Exam: Positive: Alert, Cooperative, No Acute Distress Eye Exam: Positive: PERRLA, Conjunctiva & lids normal, EOMI; Negative: Sclera icteric ENT Exam: Positive: Atraumatic, Mucous membr. moist/pink, Pharynx Normal Neck Exam: Positive: Supple; Negative: JVD, thyromegaly Chest Exam: Positive: Rhonchi, Wheezing Heart Exam: Positive: Rate Normal, Regular Rhythm, Normal S1, Normal S2; Negative: Murmurs, Rubs Abdomen Exam: Positive: Normal bowel sounds, Soft; Negative: Tenderness, Hepatospenomegaly Extremity Exam: Positive: Tenderness (left thigh), Swelling (left thigh); Negative: Clubbing, Cyanosis, Edema Skin Exam: Positive: Other skin issue (some redness and swelling on the left thigh only on the lateral aspect. ) Neuro Exam: Positive: Normal Speech, Strength at 5/5 X4 ext, Normal Tone Psych Exam: Positive: Mental status NL, Mood NL, Oriented x 3 LABORATORY DATA: Please see below. ACTIVITY: [As tolerated]. DIET: Regular DISCHARGE PLAN: Home DISPOSITION: . DISCHARGE INSTRUCTIONS: Follow up PMD in 1 week DISCHARGE CONDITION: [Stable]. TIME SPENT ON DISCHARGE: 35 minutes. Vital Signs/I&Os Vital Signs Date Time Temp Pulse Resp B/P (MAP) Pulse Ox O2 Delivery O2 Flow Rate FiO2 04/03/19 06:00 97.6 76 18 150/86 (107) 93 Room Air I&O- Last 24 Hours up to 6 AM 04/03/19 06:00 Intake Total 3180 ml Output Total 2600 ml Balance 580 ml Laboratory Data Labs 24H Laboratory Tests 2 04/02/19 12:43: Vancomycin Level Trough 15.6 04/03/19 05:36: Immature Granulocyte % (Auto) 0.9, Neutrophils (%) (Auto) 80.7H, Lymphocytes (%) (Auto) 10.3L, Monocytes (%) (Auto) 6.6H, Eosinophils (%) (Auto) 1.0, Basophils (%) (Auto) 0.5, Neutrophils # (Auto) 6.6, Lymphocytes # (Auto) 0.8L, Monocytes # (Auto) 0.5, Eosinophils # (Auto) 0.1, Basophils # (Auto) 0.0, Nucleated Red Blood Cells % (auto) 0.0, Anion Gap 9, Glomerular Filtration Rate > 60.0, Calcium Level 8.5 CBC/BMP Laboratory Tests 04/03/19 05:36 Discharge Medications Scheduled Amoxicillin/Potassium Clav (Augmentin 500-125 Tablet) 1 Each Tablet, 500 MG PO TID, (Reported) FILLED 03/29/19 FOR 10 DAYS Apixaban (Eliquis) 5 Mg Tablet, 5 MG PO BID, (Reported) Atorvastatin Calcium (Atorvastatin Calcium) 40 Mg Tab, 40 MG PO QHS, (Reported) Fluticasone Propion/Salmeterol (Advair Hfa 230-21 Mcg Inhaler) 12 Gm Hfa.aer.ad, 2 PUFF INH BID, (Reported) Gabapentin (Gabapentin) 600 Mg Tablet, 600 MG PO BID, (Reported) Lisinopril (Lisinopril) 5 Mg Tablet, 5 MG PO QHS Metaxalone (Metaxalone) 800 Mg Tablet, 800 MG PO BID, (Reported) Verapamil Hcl (Verelan) 180 Mg Cap, 180 MG PO BID, (Reported) Scheduled PRN Albuterol Sulf (Albuterol Sulfate) 2.5 Mg/3 Ml Vial.neb, 2.5 MG INH QID PRN for SHORTNESS OF BREATH, (Reported) Albuterol Sulfate (Proair Hfa) 108 Mcg/Act Aer, 2 PUFF INH Q4H PRN for SHORTNESS OF BREATH, (Reported) Meloxicam (Meloxicam) 7.5 Mg Tablet, 7.5 MG PO BID PRN for PAIN, (Reported) Metaxalone (Metaxalone) 800 Mg Tablet, 800 MG PO DAILY PRN for MUSCLE SPASMS, (Reported) Allergies Coded Allergies: No Known Allergies (Unverified , 12/30/18) SANAM JAMESON MD Apr 03, 2019 10:33
[2019-04-03] MEDS ORDERED: AMLO25TA PO (12:57)
[2019-04-03 14:00] VITALS: BP 155/84
== END 2019-04-03 19:00 | disposition home or self-care (01) | DRG 344 ==
LOC: M ED 07:20 → M ED INP 11:21 → M MSPAV 12:14
PROVIDERS: ADMIT Internal Medicine Nephrology; ATTEND Internal Medicine Nephrology
DX: M60.052 Infective myositis, left thigh (principal); L03.115 Cellulitis of right lower limb; L03.116 Cellulitis of left lower limb; I48.91 Unspecified atrial fibrillation; J45.901 Unspecified asthma with (acute) exacerbation; I10 Essential (primary) hypertension; E78.5 Hyperlipidemia, unspecified; M54.5 Low back pain; Z79.899 Other long term (current) drug therapy; M60.051 Infective myositis, right thigh

== ENCOUNTER → 2019-05-07 | Outpatient (REF) | payer BC ==
[~2019-05-07] MED LIST changes: +ADVA230A INH; +ALBU83IN INH; +AMLO25TA PO; +GABA600T4 PO; +LISI-542 PO; +MELO7.5T35 PO; +META1TAB22 PO
[2019-05-07 14:09] LABS: BASO # 0.1 10^3/uL (0.0-0.2); BASO % 0.5 % (0.0-1.0); EOS # 0.2 10^3/uL (0.0-0.5); EOS % 1.4 % (0.0-3.0); HEMATOCRIT 47.6 % (42.0-52.0); HEMOGLOBIN 14.8 g/dl (13.5-17.5); LYMPH # 2.5 10^3/uL (1.5-5.0); LYMPH % 22.6 % (24.0-44.0); MEAN CORPUSCULAR HEMOGLOBIN 28.5 pg (27.0-33.0); MEAN CORPUSCULAR HGB CONC 31.1 g/dl (32.0-36.5); MEAN CORPUSCULAR VOLUME 91.7 fl (80.0-96.0); MONO % 8.7 % (0.0-5.0); NEUTROPHILS # 7.3 10^3/uL (1.5-8.5); NEUTROPHILS % 65.8 % (36.0-66.0); PLATELET COUNT, AUTOMATED 232 10^3/uL (150-450); RED BLOOD COUNT 5.19 10^6/uL (4.30-6.10)
== END ==
LOC: M LAB REF 13:21
PROVIDERS: ATTEND Nurse Practitioner Adult Health
DX: J45.51 Severe persistent asthma with (acute) exacerbation (principal)

== ENCOUNTER → 2019-08-26 | Outpatient (CLI) | payer BC ==
[~2019-08-26] MED LIST changes: +DULO1CAP4 PO; +SPIR1CAP INH
== END ==
LOC: M LABSMTC 11:07
PROVIDERS: ATTEND Anesthesiology
DX: Z01.812 Encounter for preprocedural laboratory examination (principal); Z11.59 Encounter for screening for other viral diseases

== ENCOUNTER 2019-08-29 12:52 | Day surgery (SDC) | payer BC ==
[~2019-08-29] VITALS: Ht 175.3 cm; Wt 95.3 kg
[~2019-08-29 12:52] MED LIST changes: +LR 1,000 ML IV ONE; +ceFAZolin SOD 2 GM in IV 1 EA IV ONE
[2019-08-29] MEDS ORDERED: propofoL 200 MG/20 ML VIAL As Ordered ONE (13:18)
[2019-08-29] MEDS ORDERED: ROCURONIUM BROMIDE 50 MG/5 ML VIAL As Ordered ONE ×2 (13:18→16:59)
[2019-08-29] MEDS ORDERED: LIDOCAINE 2% 100MG/5ML SDV (FOR ANES.) As Ordered ONE (13:18)
[2019-08-29] MEDS ORDERED: MIDAZOLAM INJ 2MG/2ML VIAL (J2250 PER 1MG) As Ordered ONE (13:19)
[2019-08-29] MEDS ORDERED: fentaNYL 250 MCG/5 ML INJECTION (J3010) As Ordered ONE (13:19)
[2019-08-29] MEDS ORDERED: BUPIVACAINE HCL 0.25% 10ML VIAL As Ordered ONE (15:38)
[2019-08-29] MEDS ORDERED: BUPIVACAINE HCL 0.25% 30ML VIAL As Ordered ONE (15:39)
[2019-08-29] MEDS ORDERED: LIDOCAINE 1% SDV 30ML VIAL As Ordered ONE (15:39)
[2019-08-29] MEDS ORDERED: BUPIVACAINE LIPOSOME/PF 1.3% 20ML VIAL (13.3MG/ML)(EXPAREL)(C9290 PER1MG) As Ordered ONE (15:39)
[2019-08-29] MEDS ORDERED: dexameTHASONE 4 MG/ML 1ML VIAL (J1100 PER 1MG) As Ordered ONE (16:14)
[2019-08-29] MEDS ORDERED: ACETAMINOPHEN 1000MG 100ML IV BTL (OFIRMEV) (J0131 PER 10MG) As Ordered ONE (16:15)
[2019-08-29] MEDS ORDERED: ONDANSETRON 4MG/2ML VIAL As Ordered ONE (16:23)
[2019-08-29] MEDS ORDERED: METOCLOPRAMIDE INJ 10MG/2ML VIAL (J2765 PER 1) As Ordered ONE (16:23)
[2019-08-29] MEDS ORDERED: KETOROLAC 60 MG/2 ML VIAL As Ordered ONE (16:23)
[2019-08-29] MEDS ORDERED: oxyCODONE 5MG TAB As Ordered ONE (18:14)
[2019-08-29] MEDS: oxyCODONE 5MG TAB PO PRN ×2 (18:14→19:25)
[2019-08-29] MEDS ORDERED: NORCO, ANEXSIA 5/325MG TABLET (HYDROcodone/ACETAMINOPHEN) PO PRN (18:30)
[2019-08-29] MEDS ORDERED: LR 1,000 ML IV SCH (18:30)
[2019-08-29] MEDS ORDERED: KETOROLAC 30 MG/ML 1ML VIAL IV PRN (18:30)
[2019-08-29] MEDS ORDERED: ONDANSETRON 4MG/2ML VIAL IV PRN ×2 (18:30)
[2019-08-29] MEDS ORDERED: fentaNYL 100 MCG/2 ML INJECTION (J3010) IV PRN (18:30)
[2019-08-29 19:34] VITALS: BP 153/92
--- NOTE | 2019-08-30 07:50 | ROOPDOC ---
[facility] Report Of Operation Report of Operation DATE OF PROCEDURE: 08/29/19 PREPROCEDURE DIAGNOSES: incarcerated umbilical hernia. POSTPROCEDURE DIAGNOSES: incarcerated umbilical hernia containing omentum, preperitoneal fat. PROCEDURE: Robotic assisted laparoscopic umbilical hernia repair (rTAPP). SURGEON: Yogi Kraft MD [employer] AMBASSADOR: ANESTHESIA: General Anesthesia. ESTIMATED BLOOD LOSS: Approximately 20 mL. COMPLICATIONS: none. PROCEDURE NOTE: incarcerated omentum (bulky) reduced, preperitoneal flap created, 9 cm parietex composite mesh placed, hernia sac resected (not sent). DESCRIPTION OF PROCEDURE: Patient was given a dose of 2 g Ancef IV preoperatively for wound prophylaxis. He was brought to the operating room and placed supine on the table. Compression boots and teds were placed on both lower extremities for DVT prophylaxis. General endotracheal anesthesia was administered without any complication. His left arm was tucked, the right arm placed on an arm board. All bony prominences were padded. The abdomen was prepped from xiphoid to pubis and table to table with chlorhexidine. The patient was draped in the usual sterile fashion.Timeout were performed using both preinduction and pre-incision safety checklist to verify correct patient, procedure site and additional clinical information prior to beginning the procedure. Entry into the abdomen done through a small incision on the left upper quadrant area, at about anterior axillary line. The fascia was elevated and Veress needle inserted in a controlled fashion. Proper position was confirmed with a saline drop test. The abdomen was insufflated to a pressure of 15 mmHg. Using the same incision, under direct visualization of the laparoscope an 8 mm port was placed into the abdomen. The insertion site was inspected for injury and none was found. Patient was then placed in a slight right lateral decubitus, slight trendelenburg position to move the bowel away from the left abdominal wall. Under direct visualization an 8 mm operative robotic trocar was placed at the left lower quadrant in the same anterior axillary line and in between this 2 ports an 8 mm robotic camera port was placed. Using a 20 g spinal needle, under laparoscopic guidance, bilateral Transversu s abdominis block was placed using a mixture of exparel, 1/4% marcaine, 20 mL saline. The [employer] robot tower was maneuvered in place to center on the patient's hernia. The trochars were docked onto the robot arms. A forced bipolar forceps were placed on the left arm connected to bipolar cautery and hot lito connected to a monopolar cautery used on the right arm.I scrubbed out and took control of the robotic arms and camera at the surgeon's console. On laparoscopy, it is immediately noticeable that omentum is incarcerated into an umbilical hernia which persisted be incarcerated. This was reduced back inside of the abdomen with both external pressure and internal pulling as well as partial division of the omentum. The bleeding points in the omentum were inspected and cauterized. There was a large and bulky omentum that I finally was able to reduced. Roughly externally about a 2 cm defect is noted. Starting about 5 cm laterally and then created a preperitoneal pocket extending this both superiorly and inferiorly taking down the falciform ligament superiorly and to the umbilical ligaments inferiorly and the right side of the umbilicus laterally. The hernia sac was then approached freeing this up as well as the preperitoneal fat from the neck of the fascia and again with some slight difficulty doing this. Once this was fully reduced I made sure that Adequate space for the mesh dissecting roughly 10 cm pocket circumferentially. An internal ruler was used measuring 1.5 x 1.5 cm fascial defect. After checking for hemostasis the fascial neck was closed with 0 Stratafix transversely as it seems to orient itself that way. The abdominal pressure was lessened to 10 mmHg.. I chose a 9 cm round Parietex composite mesh and this was positioned to center on the repaired hernia. This was fixed to the abdominal wall with a running suture of 3-0V LOC. The peritoneal pocket was then closed with a running suture of 30V LOC to make sure that the mesh is fully covered. The excess hernia sac was trimmed and the resulting peritoneal fold was closed with a separate 30V lock suture. The sac was retrieved. A cursory view of the abdomen as well as the omentum to check for bleeding was made. Once satisfied I scrubbed back in. The trochars were undocked from the robotic tower and the robotic toe removed from the surgical field. The abdomen was deflated. The ports were removed. The skin incisions were closed with 4-0 Monocryl in a subcuticular fashion. Dermabond was used for dressing. Patient tolerated the procedure well. He was awakened, extubated. His Tripp catheter was removed. He was brought to the recovery room stable YOGI KRAFT MD August 30, 2019 07:50
== END 2019-08-29 20:00 | disposition home or self-care (01) ==
LOC: M SDC 12:52
PROVIDERS: ATTEND Surgery
DX: K42.0 Umbilical hernia with obstruction, without gangrene (principal); I10 Essential (primary) hypertension; E78.49 Other hyperlipidemia; I48.0 Paroxysmal atrial fibrillation; K21.9 Gastro-esophageal reflux disease without esophagitis; M54.5 Low back pain; R25.1 Tremor, unspecified; G47.33 Obstructive sleep apnea (adult) (pediatric); J45.40 Moderate persistent asthma, uncomplicated; G43.909 Migraine, unspecified, not intractable, without status migrainosus; Z87.891 Personal history of nicotine dependence; R79.89 Other specified abnormal findings of blood chemistry; F41.9 Anxiety disorder, unspecified; F32.9 Major depressive disorder, single episode, unspecified; E78.1 Pure hyperglyceridemia; Z79.899 Other long term (current) drug therapy
CPT/HCPCS: 49653; 64488; C1781; C9290; J0131; J0690; J1100; J1885; J2250; J2405; J2765; J3010

== ENCOUNTER → 2019-09-25 | Outpatient (CLI) | payer BC ==
[~2019-09-25] MED LIST changes: -LR 1,000 ML IV ONE; -ceFAZolin SOD 2 GM in IV 1 EA IV ONE
[2019-09-25 11:19] LABS: ALBUMIN 4.1 GM/DL (3.2-5.2); ALT/SGPT 35 U/L (12-78); BILIRUBIN,TOTAL 0.6 MG/DL (0.2-1.0); BLOOD UREA NITROGEN 24 MG/DL (7-18); CALCIUM LEVEL 9.1 MG/DL (8.5-10.1); CARBON DIOXIDE LEVEL 29 MEQ/L (21-32); CHLORIDE LEVEL 107 MEQ/L (98-107); CHOLESTEROL LEVEL 180 MG/DL (<200); CREATININE FOR GFR 1.03 MG/DL (0.70-1.30); GLOMERULAR FILTRATION RATE > 60.0 (>56); GLUCOSE, FASTING 110 MG/DL (70-100); HDL CHOLESTEROL 45 MG/DL (>40); LDL CHOLESTEROL 96 MG/DL (<100); NON-HDL-C 135 MG/DL; POTASSIUM SERUM 4.2 MEQ/L (3.5-5.1); SODIUM LEVEL 139 MEQ/L (136-145); TOTAL PROTEIN 7.3 GM/DL (6.4-8.2); TRIGLYCERIDES LEVEL 197 MG/DL (<150)
== END ==
LOC: M LAB 10:02
PROVIDERS: ATTEND Nurse Practitioner Family
DX: R79.89 Other specified abnormal findings of blood chemistry (principal); E78.1 Pure hyperglyceridemia

== ENCOUNTER → 2020-01-05 | Outpatient (CLI) | payer BC ==
[~2020-01-05] MED LIST changes: -ASPI81TA85 PO; +ASPI81TA86 PO
[2020-01-05 09:29] LABS: ALBUMIN 4.1 GM/DL (3.2-5.2); ALT/SGPT 46 U/L (12-78); BILIRUBIN,TOTAL 0.6 MG/DL (0.2-1.0); BLOOD UREA NITROGEN 21 MG/DL (7-18); CALCIUM LEVEL 8.8 MG/DL (8.5-10.1); CARBON DIOXIDE LEVEL 26 MEQ/L (21-32); CHLORIDE LEVEL 106 MEQ/L (98-107); CHOLESTEROL LEVEL 155 MG/DL (<200); CHOLESTEROL RISK RATIO 3.444 (<5); CREATININE FOR GFR 1.07 MG/DL (0.70-1.30); GLOMERULAR FILTRATION RATE > 60.0 (>56); GLUCOSE, FASTING 90 MG/DL (70-100); HDL CHOLESTEROL 45 MG/DL (>40); LDL CHOLESTEROL 77 MG/DL (<100); NON-HDL-C 110 MG/DL; POTASSIUM SERUM 3.7 MEQ/L (3.5-5.1); SODIUM LEVEL 139 MEQ/L (136-145); TOTAL PROTEIN 7.3 GM/DL (6.4-8.2); TRIGLYCERIDES LEVEL 165 MG/DL (<150)
== END ==
LOC: M LAB 08:21
PROVIDERS: ATTEND Nurse Practitioner Family
DX: E78.5 Hyperlipidemia, unspecified (principal); R73.01 Impaired fasting glucose; I10 Essential (primary) hypertension

== ENCOUNTER 2020-02-21 04:07 | Emergency (ER) | payer BC ==
[~2020-02-21] VITALS: Ht 175.3 cm; Wt 100.9 kg
--- NOTE | 2020-02-21 05:01 | REPVR ---
PROCEDURE INFORMATION: Exam: XR Left Knee Exam date and time: 02/21/2020 4:44 AM Age: 60 years old Clinical indication: Pain; Knee; Left; Additional info: Pain in knee no injury TECHNIQUE: Imaging protocol: XR Left knee. Views: 4 or more views. COMPARISON: CR Tibia, Fibula lower leg 02/04/2015 12:38 PM FINDINGS: Bones/joints: There is no significant joint effusion. Joint spaces are preserved. There is no evidence of acute fracture or dislocation. There is no subluxation or tilt of the patella. No erosions or osteophytes are identified. Soft tissues: Normal. IMPRESSION: Normal appearance of the left knee. Electronically signed by: Tammy Ricardo On 02/21/2020 05:02:02 AM
[2020-02-21 06:06] VITALS: BP 136/72
== END 2020-02-21 06:13 | disposition home or self-care (01) ==
LOC: M ED 04:07
DX: M25.562 Pain in left knee (principal); Z87.891 Personal history of nicotine dependence

== ENCOUNTER → 2020-02-21 | Outpatient (CLI) | payer BC ==
[2020-02-21 12:33] LABS: C REACTIVE PROTEIN QUANTITATIV < 0.30 MG/DL (0.00-0.30); RHEUMATOID FACTOR QUANT < 10.0 IU/ML (<15.0); URIC ACID 4.6 MG/DL (3.5-7.2)
[2020-02-22 16:08] LABS: ANTI DOUBLE STRAND-DNA AB 22 IU/mL (0-9); ANTINUCLEAR ANTIBODIES DIRECT Positive (Negative); Lyme Disease IgG/IgM Antibodie <0.91 ISR (0.00-0.90); Lyme Disease IgM Ab Quantitati <0.80 index (0.00-0.79); RNP ANTIBODIES <0.2 AI (0.0-0.9); SJOGREN'S ANTI SS-A <0.2 AI (0.0-0.9); SJOGREN'S ANTI SS-B <0.2 AI (0.0-0.9); SMITH ANTIBODIES <0.2 AI (0.0-0.9)
== END ==
LOC: M LAB 10:33
PROVIDERS: ATTEND Physician Assistant
DX: M17.12 Unilateral primary osteoarthritis, left knee (principal)

== ENCOUNTER → 2020-03-12 | Outpatient (CLI) | payer OTHER | LOC: M LABSMTC 11:03 | PROVIDERS: ATTEND Physician Assistant | DX: Z01.812 Encounter for preprocedural laboratory examination (principal); Z20.828 Contact with and (suspected) exposure to other viral communicable diseases ==

== ENCOUNTER 2020-08-14 08:16 | Emergency (ER) | payer OTHER ==
[~2020-08-14] VITALS: Ht 172.7 cm; Wt 96.9 kg
[~2020-08-14 08:16] MED LIST changes: +GABA-283 PO; -GABA-845 PO; -LISI-538; -LISI-542 PO; +LISI-898 PO; +LISI10TA22 PO; -LISI10TA4 PO; +LISI20TA33; -LISI40TA; -LISI40TA PO; +LISI40TA4; +LISI40TA4 PO
[2020-08-14] MEDS ORDERED: PRED20TA PO (09:19)
[2020-08-14] MEDS ORDERED: LIDO5DIS41 TD (09:19)
[2020-08-14 09:33] VITALS: BP 140/81
== END 2020-08-14 09:41 | disposition home or self-care (01) ==
LOC: M ED 08:16
DX: M54.42 Lumbago with sciatica, left side (principal); I48.91 Unspecified atrial fibrillation; I10 Essential (primary) hypertension; E78.5 Hyperlipidemia, unspecified; G43.909 Migraine, unspecified, not intractable, without status migrainosus; J45.909 Unspecified asthma, uncomplicated; N40.0 Benign prostatic hyperplasia without lower urinary tract symptoms; Z79.01 Long term (current) use of anticoagulants; Z79.899 Other long term (current) drug therapy

== ENCOUNTER → 2020-08-25 | Outpatient (REF) | payer BC ==
[~2020-08-25] MED LIST changes: +LIDO5DIS41 TD; +MONT10TA10
[2020-08-25 12:12] LABS: APPEARANCE, URINE CLEAR (CLEAR); BACTERIA, URINE AUTO NEGATIVE (NEGATIVE); BILIRUBIN, URINE AUTO NEGATIVE (NEGATIVE); BLOOD, URINE BLOOD NEGATIVE (NEGATIVE); COLOR, URINE YELLOW (YELLOW); GLUCOSE, URINE (UA) AUTO NEGATIVE (NEGATIVE); KETONE, URINE AUTO NEGATIVE (NEGATIVE); LEUKOCYTE ESTERASE, URINE AUTO NEGATIVE (NEGATIVE); MUCUS, URINE SMALL (NEGATIVE); NITRITE, URINE AUTO NEGATIVE (NEGATIVE); PROTEIN, URINE AUTO NEGATIVE (NEGATIVE); RBC, URINE AUTO 0 /HPF (0-3); SPECIFIC GRAVITY URINE AUTO 1.014 (1.002-1.035); SQUAMOUS EPITHELIAL CELL UR AU 0 /HPF (0-6); UROBILINOGEN, URINE AUTO 0.2 mg/dL (0.0-2.0); WBC, URINE AUTO 0 /HPF (0-3)
[2020-08-25 12:16] LABS: BASO # 0.1 10^3/uL (0.0-0.2); EOS # 0.2 10^3/uL (0.0-0.5); EOS % 3.4 % (0.0-3.0); HEMATOCRIT 47.2 % (42.0-52.0); LYMPH # 1.5 10^3/uL (1.5-5.0); LYMPH % 28.5 % (24.0-44.0); MEAN CORPUSCULAR HEMOGLOBIN 29.8 pg (27.0-33.0); MEAN CORPUSCULAR HGB CONC 31.8 g/dl (32.0-36.5); MEAN CORPUSCULAR VOLUME 93.8 fl (80.0-96.0); MONO # 0.5 10^3/uL (0.0-0.8); MONO % 9.8 % (2.0-8.0); NEUTROPHILS % 56.9 % (36.0-66.0); PLATELET COUNT, AUTOMATED 180 10^3/uL (150-450); RED BLOOD COUNT 5.03 10^6/uL (4.30-6.10); WHITE BLOOD COUNT 5.2 10^3/uL (4.0-10.0)
[2020-08-25 12:39] LABS: ERYTHROCYTE SEDIMENTATION RATE 3 mm/hr (0-20)
[2020-08-25 12:47] LABS: CREATININE,RANDOM URINE 86.7 MG/DL
[2020-08-25 12:48] LABS: C REACTIVE PROTEIN QUANTITATIV < 0.30 MG/DL (0.00-0.30); COMPLEMENT C3 94 MG/DL (90-180); COMPLEMENT C4 19 MG/DL (10-40); RHEUMATOID FACTOR QUANT < 10.0 IU/ML (<15.0)
[2020-09-02 14:11] LABS: ANA (HEP2) Negative (.); ANTI CENTROMERE ANTIBODY <0.2 AI (0.0-0.9); ANTI DS-DNA AB Negative (Negative); ANTI SCLERODERMA ANTIBODIES <0.2 AI (0.0-0.9); ANTI SMITH(Sm) AB <20 Units (<20); ANTI-HISTONE ANTIBODIES 0.3 Units (0.0-0.9); ANTI-U1 RNP AB <20 Units (<20); BETA-2 GLYCOPROTEIN I ABY IGA <9 (0-25); BETA-2 GLYCOPROTEIN I ABY IGG <9 (0-20); BETA-2 GLYCOPROTEIN I ABY IGM <9 (0-32); CARDIOLIPIN IGA ANTIBODY <9 APL U/mL (0-11); CARDIOLIPIN IGG ANTIBODY <9 GPL U/mL (0-14); CARDIOLIPIN IGM ANTIBODY 12 MPL U/mL (0-12); COMPLEMENT TOTAL (CH50) 42 U/mL (>41); CYCLIC CITRULLINATED PEPTIDE 2 units (0-19); SSA SJOGRENS A <0.2 AI (0.0-0.9); SSB SJOGRENS B <0.2 AI (0.0-0.9)
[2020-09-04 10:55] LABS: DRVV SCREEN 55.6 SEC
[2020-09-04 10:56] LABS: PTT LUPUS TYPE ANTICOAG SCREEN 1.4 (0-1.2)
[2020-09-04 11:03] LABS: DRVV CONFIRM 37.1 SEC
[2020-09-04 11:04] LABS: NORMALIZED RATIO 1.4 (0.00-1.20)
[2020-09-06 16:07] LABS: HEXAGONAL PHASE PHOSPHOLIPID 0 sec (0-11)
== END ==
LOC: M SFHCRHEU 10:03
PROVIDERS: ATTEND Internal Medicine
DX: R76.8 Other specified abnormal immunological findings in serum (principal)

== ENCOUNTER → 2020-09-08 | Outpatient (CLI) | payer BC ==
--- NOTE | 2020-09-08 21:56 | REP ---
INDICATION: TENDINITIS OF LEFT ROTATOR CUFF, JOINT EFFUSION COMPARISON: None. TECHNIQUE: Internal rotation, external rotation, and Y view. FINDINGS: Cortical irregularity and subtle spurring at the acromioclavicular joint. Subtle increased sclerosis and blunting to the glenoid rim. Subacromial space is normal. No periarticular calcifications or loose bodies are identified. No acute fracture or dislocation. IMPRESSION: Mild osteoarthritic degenerative changes. <Electronically signed by Ciaran Goddard > 09/08/20 2021
--- NOTE | 2020-09-12 01:51 | REP ---
INDICATION: TENDINITIS OF LEFT ROTATOR CUFF, JOINT EFFUSION COMPARISON: None. TECHNIQUE: AP, lateral, bilateral oblique views right and left wrist. FINDINGS: Right wrist demonstrates increased sclerosis along the radial surface with decreased radiocarpal joint space. There is a small calcification in the TFCC. There is increased sclerosis and subtle joint space narrowing and cortical irregularity involving the 1st and 2nd carpometacarpal joints with small cortical irregularity and subtle chronic subluxation at the base of the 1st metacarpal bone. No acute fracture or dislocation. Left wrist demonstrates increased sclerosis along the radial surface with mildly decreased radiocarpal joint space. Increased sclerosis and joint space narrowing noted at the 1st and 2nd carpometacarpal joints with small cortical irregularity and subtle chronic subluxation at the base of the 1st metacarpal bone. No acute fracture or dislocation. IMPRESSION: Relatively symmetric bilateral degenerative changes. <Electronically signed by Ciaran Goddard > 09/12/20 0147
== END ==
LOC: M WUC 11:58
PROVIDERS: ATTEND Internal Medicine
DX: M75.82 Other shoulder lesions, left shoulder (principal); M25.40 Effusion, unspecified joint; M19.012 Primary osteoarthritis, left shoulder; M19.031 Primary osteoarthritis, right wrist; M19.032 Primary osteoarthritis, left wrist

== ENCOUNTER 2020-09-11 04:58 | Emergency (ER) | payer BC ==
[~2020-09-11] VITALS: Ht 175.3 cm; Wt 94.2 kg
[~2020-09-11 04:58] MED LIST changes: -MONT10TA10
[2020-09-11] MEDS ORDERED: MONT10TA10 (05:29)
[2020-09-11 05:39] LABS: BASO # 0.1 10^3/uL (0.0-0.2); BASO % 0.7 % (0.0-1.0); EOS # 0.2 10^3/uL (0.0-0.5); EOS % 1.8 % (0.0-3.0); HEMATOCRIT 45.6 % (42.0-52.0); HEMOGLOBIN 14.8 g/dl (13.5-17.5); LYMPH # 1.3 10^3/uL (1.5-5.0); LYMPH % 16.1 % (24.0-44.0); MEAN CORPUSCULAR HGB CONC 32.5 g/dl (32.0-36.5); MEAN CORPUSCULAR VOLUME 92.5 fl (80.0-96.0); MONO # 0.7 10^3/uL (0.0-0.8); MONO % 8.4 % (2.0-8.0); NEUTROPHILS % 72.5 % (36.0-66.0); PLATELET COUNT, AUTOMATED 169 10^3/uL (150-450); RED BLOOD COUNT 4.93 10^6/uL (4.30-6.10); WHITE BLOOD COUNT 8.3 10^3/uL (4.0-10.0)
--- NOTE | 2020-09-11 05:48 | REPVR ---
PROCEDURE INFORMATION: Exam: XR Chest Exam date and time: 09/11/2020 5:10 AM Age: 60 years old Clinical indication: Other: Chest pain TECHNIQUE: Imaging protocol: XR of the chest. Views: 1 view. COMPARISON: CR Chest, 2 view PA, Lat 03/30/2019 11:48 AM FINDINGS: Lungs: There is mild to moderate elevation of the right hemidiaphragm, unchanged since the prior exam. No consolidation. Pleural spaces: Unremarkable. No pleural effusion. No pneumothorax. Heart/Mediastinum: Unremarkable. No cardiomegaly. Bones/joints: Unremarkable. IMPRESSION: No acute findings. Electronically signed by: Lázaro Dahl On 09/11/2020 05:47:50 AM
[2020-09-11 06:07] LABS: BLOOD UREA NITROGEN 22 MG/DL (7-18); CALCIUM LEVEL 8.8 MG/DL (8.5-10.1); CARBON DIOXIDE LEVEL 24 MEQ/L (21-32); CHLORIDE LEVEL 111 MEQ/L (98-107); CREATININE FOR GFR 0.93 MG/DL (0.70-1.30); GLOMERULAR FILTRATION RATE > 60.0 (>56); GLUCOSE, FASTING 110 MG/DL (70-100); POTASSIUM SERUM 4.2 MEQ/L (3.5-5.1); SODIUM LEVEL 142 MEQ/L (136-145)
--- NOTE | 2020-09-11 06:15 | REPVR ---
PROCEDURE INFORMATION: Exam: CT Head Without Contrast Exam date and time: 09/11/2020 5:52 AM Age: 60 years old Clinical indication: Dizziness TECHNIQUE: Imaging protocol: Computed tomography of the head without contrast. Radiation optimization: All CT scans at this facility use at least one of these dose optimization techniques: automated exposure control; mA and/or kV adjustment per patient size (includes targeted exams where dose is matched to clinical indication); or iterative reconstruction. COMPARISON: CT Head without contrast 01/13/2018 4:49 AM FINDINGS: Brain: Normal. No hemorrhage. Unremarkable white matter. No mass effect. Cerebral ventricles: No ventriculomegaly. Paranasal sinuses: Visualized sinuses are unremarkable. No fluid levels. Mastoid air cells: Visualized mastoid air cells are well aerated. Bones/joints: Unremarkable. No acute fracture. Soft tissues: Unremarkable. IMPRESSION: No acute intracranial abnormality. Electronically signed by: Lázaro Dahl On 09/11/2020 06:15:16 AM
--- NOTE | 2020-09-11 08:46 | ECGEPIP ---
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
--- NOTE | 2020-09-11 10:31 | REPVR ---
PROCEDURE INFORMATION: Exam: MR Head Without Contrast Exam date and time: 09/11/2020 10:12 AM Age: 60 years old Clinical indication: Dizziness; Additional info: Dizziness R/O CVA TECHNIQUE: Imaging protocol: MR of the head without contrast. COMPARISON: CT Head without contrast 09/11/2020 5:58 AM FINDINGS: Brain: There is mild patchy increased T2 signal intensity within the bilateral cerebral periventricular white matter, consistent with chronic microvascular ischemic changes. There are few small focal areas of chronic ischemia in bilateral frontal, parietal and periatrial white matter. There is no abnormal diffusion weighted signal intensity to suggest an acute ischemic event. On gradient echo imaging, no susceptibility changes are seen to represent parenchymal calcification or degraded blood products. Cerebral ventricles: The ventricular system is not dilated and is appropriate for the patient's age. Bones/joints: Unremarkable. Paranasal sinuses: Mild mucosal thickening is seen in the paranasal sinuses. Mastoid air cells: Normal as visualized. No mastoid effusion. Orbital cavity: Unremarkable. Soft tissues: Unremarkable. IMPRESSION: 1. No acute infarction, masses or hemorrhage is seen. No acute intracranial abnormality is identified. 2. Diffuse age-related cerebral atrophy and mild chronic microvascular white matter ischemic changes, without evidence of an acute intracranial abnormality. 3. There has been no adverse interval change since the previous study. Electronically signed by: Bernard Mosher On 09/11/2020 10:30:47 AM
--- NOTE | 2020-09-11 10:33 | REPVR ---
PROCEDURE INFORMATION: Exam: MRA Head Without Contrast; Arteriography Exam date and time: 09/11/2020 10:12 AM Age: 60 years old Clinical indication: Dizziness and giddiness and vertigo and weakness; Additional info: Dizziness R/O CVA TECHNIQUE: Imaging protocol: Magnetic resonance angiography head without contrast. Exam focused on the arteries. 3D rendering (Not supervised by radiologist): MIP and/or 3D reconstructed images were created by the technologist. COMPARISON: CT Head without contrast 09/11/2020 5:58 AM FINDINGS: ANTERIOR CIRCULATION: Right internal carotid artery: Intracranial segment is patent with no significant stenosis. No aneurysm. Right middle cerebral artery: No occlusion or significant stenosis. No aneurysm. Right anterior cerebral artery: No occlusion or significant stenosis. No aneurysm. Left internal carotid artery: Intracranial segment is patent with no significant stenosis. No aneurysm. Left middle cerebral artery: No occlusion or significant stenosis. No aneurysm. Left anterior cerebral artery: No occlusion or significant stenosis. No aneurysm. POSTERIOR CIRCULATION: Right vertebral artery: No occlusion or significant stenosis. No aneurysm. Left vertebral artery: No occlusion or significant stenosis. No aneurysm. Basilar artery: No occlusion or significant stenosis. No aneurysm. Right posterior cerebral artery: No occlusion or significant stenosis. No aneurysm. Left posterior cerebral artery: No occlusion or significant stenosis. No aneurysm. IMPRESSION: No stenosis.No occlusion. No aneurysm. Electronically signed by: Bernard Mosher On 09/11/2020 10:32:46 AM
[2020-09-11 12:45] VITALS: BP 150/95
== END 2020-09-11 12:55 | disposition home or self-care (01) ==
LOC: M ED 04:58
DX: R42 Dizziness and giddiness (principal); R00.2 Palpitations; I67.82 Cerebral ischemia; I48.91 Unspecified atrial fibrillation; I10 Essential (primary) hypertension; E78.5 Hyperlipidemia, unspecified; J45.909 Unspecified asthma, uncomplicated; G47.33 Obstructive sleep apnea (adult) (pediatric); M19.90 Unspecified osteoarthritis, unspecified site; F32.9 Major depressive disorder, single episode, unspecified; F41.9 Anxiety disorder, unspecified; K58.9 Irritable bowel syndrome, unspecified; M51.9 Unspecified thoracic, thoracolumbar and lumbosacral intervertebral disc disorder; K21.9 Gastro-esophageal reflux disease without esophagitis; Z87.891 Personal history of nicotine dependence; Z79.899 Other long term (current) drug therapy; Z79.51 Long term (current) use of inhaled steroids; Z79.01 Long term (current) use of anticoagulants

== ENCOUNTER → 2022-04-27 | Outpatient (CLI) | payer BC ==
[~2022-04-27] MED LIST changes: +ALBU2.5V10; +ALBU2.5V10 INH; -ALBU83IN; -ALBU83IN INH; -LISI-898 PO; +LISI5TAB11 PO; +MONT10TA97
[2022-04-27 13:22] LABS: BASO # 0.1 10^3/uL (0.0-0.2); BASO % 0.8 % (0.0-1.0); EOS # 0.1 10^3/uL (0.0-0.5); HEMATOCRIT 43.4 % (42.0-52.0); HEMOGLOBIN 14.4 g/dl (13.5-17.5); MEAN CORPUSCULAR HEMOGLOBIN 30.8 pg (27.0-33.0); MEAN CORPUSCULAR HGB CONC 33.2 g/dl (32.0-36.5); MEAN CORPUSCULAR VOLUME 92.9 fl (80.0-96.0); MONO # 0.7 10^3/uL (0.0-0.8); NEUTROPHILS # 3.7 10^3/uL (1.5-8.5); NEUTROPHILS % 55.6 % (36.0-66.0); PLATELET COUNT, AUTOMATED 174 10^3/uL (150-450); RED BLOOD COUNT 4.67 10^6/uL (4.30-6.10); WHITE BLOOD COUNT 6.7 10^3/uL (4.0-10.0)
[2022-04-27 13:44] LABS: ALBUMIN 4.1 G/DL (3.2-5.2); ALKALINE PHOSPHATASE 50 U/L (46-116); ALT/SGPT 36 U/L (7.0-40); AST/SGOT 21 U/L (<34); BILIRUBIN,TOTAL 0.4 MG/DL (0.3-1.2); BLOOD UREA NITROGEN 15 MG/DL (9-23); CALCIUM LEVEL 9.2 MG/DL (8.3-10.6); CARBON DIOXIDE LEVEL 25 MMOL/L (20-31); CHLORIDE LEVEL 107 MMOL/L (98-107); CREATININE FOR GFR 0.88 MG/DL (0.70-1.30); GLOMERULAR FILTRATION RATE > 60.0 (>49); GLUCOSE, FASTING 126 MG/DL (74-106); POTASSIUM SERUM 4.3 MMOL/L (3.5-5.1); SODIUM LEVEL 139 MMOL/L (136-145); TOTAL PROTEIN 6.7 G/DL (5.7-8.2)
== END ==
LOC: M LAB 12:29
PROVIDERS: ATTEND Nurse Practitioner Family
DX: Z01.818 Encounter for other preprocedural examination (principal); M75.102 Unspecified rotator cuff tear or rupture of left shoulder, not specified as traumatic

== ENCOUNTER 2022-07-22 15:08 | Outpatient (RCR) | payer MEDICAID | END 2022-08-01 | LOC: M PT 15:08 | PROVIDERS: ATTEND Orthopaedic Surgery | DX: Z96.612 Presence of left artificial shoulder joint (principal) ==

== ENCOUNTER 2022-08-08 17:50 | Emergency (ER) | payer MEDICAID, OTHER ==
[~2022-08-08] VITALS: Ht 175.3 cm; Wt 103.3 kg
[2022-08-08] MEDS ORDERED: TRAM50TA2 PO (18:09)
[2022-08-08] MEDS ORDERED: methylPREDNISolone 125MG 2ML VIAL IM ONE (18:30)
[2022-08-08] MEDS ORDERED: diazePAM 5MG TABLET PO ONE (18:30)
[2022-08-08] MEDS ORDERED: ACETAMINOPHEN 500 MG TAB PO ONE (18:30)
[2022-08-08] MEDS ORDERED: HYDR-3713 PO (20:09)
[2022-08-08] MEDS ORDERED: NORCO 5/325MG TABLET (HOME DOSE PACK) PO ONE (20:10)
[2022-08-08 20:36] VITALS: BP 128/76
== END 2022-08-08 20:40 | disposition home or self-care (01) ==
LOC: M ED 17:50
DX: M54.50 Low back pain, unspecified (principal); I48.91 Unspecified atrial fibrillation; I10 Essential (primary) hypertension; E78.5 Hyperlipidemia, unspecified; M51.9 Unspecified thoracic, thoracolumbar and lumbosacral intervertebral disc disorder; M25.78 Osteophyte, vertebrae; Z79.01 Long term (current) use of anticoagulants; Z79.899 Other long term (current) drug therapy; Z88.8 Allergy status to other drugs, medicaments and biological substances
CPT/HCPCS: 72131; 96372; 99283; J2930

== ENCOUNTER → 2022-08-10 | Outpatient (CLI) | payer OTHER ==
[~2022-08-10] MED LIST changes: +HYDR-3713 PO; +TRAM50TA2 PO
[2022-08-10 19:10] LABS: BLOOD UREA NITROGEN 26 MG/DL (9-23); CREATININE FOR GFR 1.16 MG/DL (0.70-1.30); GLOMERULAR FILTRATION RATE > 60.0 (>49)
== END ==
LOC: M LAB 16:43
PROVIDERS: ATTEND Physical Medicine & Rehabilitation
DX: M54.16 Radiculopathy, lumbar region (principal)

== ENCOUNTER → 2022-08-11 | Outpatient (CLI) | payer OTHER ==
[~2022-08-11] MED LIST changes: +PROHANCE 279.3MG/ML 15ML VIAL As Ordered ONE; +PROHANCE 279.3MG/ML 5ML VIAL As Ordered ONE
== END ==
LOC: M RAD 16:24
PROVIDERS: ATTEND Physical Medicine & Rehabilitation
DX: M47.896 Other spondylosis, lumbar region (principal); M51.26 Other intervertebral disc displacement, lumbar region; M48.061 Spinal stenosis, lumbar region without neurogenic claudication; M54.16 Radiculopathy, lumbar region
CPT/HCPCS: 72158; A9576

== ENCOUNTER 2022-08-31 07:47 | Outpatient (RCR) | payer MEDICAID, OTHER ==
[~2022-08-31 07:47] MED LIST changes: -PROHANCE 279.3MG/ML 15ML VIAL As Ordered ONE; -PROHANCE 279.3MG/ML 5ML VIAL As Ordered ONE
== END 2022-09-01 ==
LOC: M PT 07:47
PROVIDERS: ATTEND Orthopaedic Surgery
DX: Z96.612 Presence of left artificial shoulder joint (principal)

== ENCOUNTER → 2022-09-14 | Outpatient (CLI) | payer OTHER | LOC: M LAB 12:27 | PROVIDERS: ATTEND Nurse Practitioner Adult Health | DX: J98.6 Disorders of diaphragm (principal) ==

== ENCOUNTER 2022-09-30 07:51 | Outpatient (RCR) | payer OTHER | END 2022-10-01 | LOC: M PT 07:51 | PROVIDERS: ATTEND Orthopaedic Surgery | DX: Z96.612 Presence of left artificial shoulder joint (principal) ==

== ENCOUNTER → 2022-10-08 | Outpatient (CLI) | payer OTHER ==
[2022-10-08 10:13] LABS: BASO # 0.1 10^3/uL (0.0-0.2); BASO % 0.7 % (0.0-1.0); EOS # 0.1 10^3/uL (0.0-0.5); EOS % 1.4 % (0.0-3.0); HEMATOCRIT 44.4 % (42.0-52.0); HEMOGLOBIN 15.1 g/dl (13.5-17.5); LYMPH # 1.5 10^3/uL (1.5-5.0); LYMPH % 20.9 % (24.0-44.0); MEAN CORPUSCULAR HEMOGLOBIN 31.2 pg (27.0-33.0); MEAN CORPUSCULAR VOLUME 91.7 fl (80.0-96.0); MONO # 0.6 10^3/uL (0.0-0.8); MONO % 9.1 % (2.0-8.0); NEUTROPHILS # 4.7 10^3/uL (1.5-8.5); NEUTROPHILS % 67.6 % (36.0-66.0); PLATELET COUNT, AUTOMATED 173 10^3/uL (150-450); RED BLOOD COUNT 4.84 10^6/uL (4.30-6.10)
[2022-10-08 10:41] LABS: ALBUMIN 4.2 G/DL (3.2-5.2); ALKALINE PHOSPHATASE 62 U/L (46-116); ALT/SGPT < 9 U/L (7.0-40); AST/SGOT 10 U/L (<34); BILIRUBIN,TOTAL 0.3 MG/DL (0.3-1.2); BLOOD UREA NITROGEN 26 MG/DL (9-23); CALCIUM LEVEL 8.8 MG/DL (8.3-10.6); CARBON DIOXIDE LEVEL 25 MMOL/L (20-31); CHLORIDE LEVEL 111 MMOL/L (98-107); CREATININE FOR GFR 0.93 MG/DL (0.70-1.30); GLOMERULAR FILTRATION RATE > 60.0 (>49); GLUCOSE, FASTING 104 MG/DL (74-106); MAGNESIUM LEVEL 2.2 MG/DL (1.8-2.4); POTASSIUM SERUM 4.5 MMOL/L (3.5-5.1); SODIUM LEVEL 143 MMOL/L (136-145); TOTAL PROTEIN 6.7 G/DL (5.7-8.2)
[2022-10-08 10:42] LABS: MAU/CREAT RATIO 2.7 MCG/MG (0.0-30.0)
[2022-10-08 10:45] LABS: THYROID STIMULATING HORMONE 1.044 uIU/ML (0.55-4.78)
[2022-10-08 10:59] LABS: HEMOGLOBIN A1c 5.5 % (4.0-6.0)
== END ==
LOC: M RAD 09:35
PROVIDERS: ATTEND Nurse Practitioner Family
DX: E88.81 Metabolic syndrome and other insulin resistance (principal); J45.50 Severe persistent asthma, uncomplicated; I10 Essential (primary) hypertension; E03.9 Hypothyroidism, unspecified; M25.511 Pain in right shoulder

== ENCOUNTER 2022-10-28 07:00 | Outpatient (RCR) | payer OTHER | END 2022-11-01 | LOC: M PT 07:00 | PROVIDERS: ATTEND Orthopaedic Surgery | DX: G89.29 Other chronic pain (principal) ==

== ENCOUNTER → 2022-12-02 | Outpatient (RCR) | payer OTHER ==
[~2022-12-02] MED LIST changes: +AIRD1INH3 INH; +DIAZ10TA2 PO; -GABA-283 PO; +GABA-284 PO; +LEVO25TA5 PO; -MONT10TA97; +MONT10TA97 PO; +PREG25CA PO; +VERA180T42 PO
== END ==
LOC: M PT 11-02 09:06
PROVIDERS: ATTEND Orthopaedic Surgery
DX: Z98.890 Other specified postprocedural states (principal); M25.512 Pain in left shoulder

== ENCOUNTER → 2023-01-06 | Outpatient (CLI) | payer OTHER | LOC: M WHC 14:28 | PROVIDERS: ATTEND Nurse Practitioner Family | DX: M51.16 Intervertebral disc disorders with radiculopathy, lumbar region (principal); Z79.52 Long term (current) use of systemic steroids ==

== ENCOUNTER → 2023-01-11 | Outpatient (CLI) | payer OTHER ==
[2023-01-11 14:23] LABS: PLATELET COUNT, AUTOMATED 163 10^3/uL (150-450)
[2023-01-11 14:43] LABS: INR 1.17; PROTHROMBIN TIME 14.6 SECONDS (12.5-14.5)
[2023-01-11 14:44] LABS: PARTIAL THROMBOPLASTIN TIME 33.3 SECONDS (24.8-34.2)
== END ==
LOC: M LAB 13:56
PROVIDERS: ATTEND Physician Assistant Surgical
DX: Z01.818 Encounter for other preprocedural examination (principal); Z79.01 Long term (current) use of anticoagulants

== ENCOUNTER → 2023-01-18 | Outpatient (CLI) | payer OTHER ==
[~2023-01-18] MED LIST changes: +LIDOCAINE 1% MDV 20ML VIAL As Ordered ONE
[2023-01-18 12:10] VITALS: TEMP 98.8
[2023-01-18 12:45] LABS: BASO % 0.1 % (0.0-1.0); HEMATOCRIT 39.9 % (42.0-52.0); HEMOGLOBIN 13.5 g/dl (13.5-17.5); LYMPH % 12.2 % (24.0-44.0); MEAN CORPUSCULAR HEMOGLOBIN 31.5 pg (27.0-33.0); MEAN CORPUSCULAR HGB CONC 33.8 g/dl (32.0-36.5); MONO # 0.7 10^3/uL (0.0-0.8); MONO % 8.1 % (2.0-8.0); NEUTROPHILS # 6.4 10^3/uL (1.5-8.5); NEUTROPHILS % 79.2 % (36.0-66.0); PLATELET COUNT, AUTOMATED 167 10^3/uL (150-450); RED BLOOD COUNT 4.29 10^6/uL (4.30-6.10); WHITE BLOOD COUNT 8.1 10^3/uL (4.0-10.0)
[2023-01-18 13:33] VITALS: BP 130/74; O2SAT 96
== END ==
LOC: M IRPRO 12:00
PROVIDERS: ATTEND Specialist
DX: R93.89 Abnormal findings on diagnostic imaging of other specified body structures (principal)

== ENCOUNTER → 2023-02-01 | Outpatient (RCR) | payer OTHER ==
[~2023-02-01] MED LIST changes: -LIDOCAINE 1% MDV 20ML VIAL As Ordered ONE
== END ==
LOC: M PT 01-11 12:58
PROVIDERS: ATTEND Nurse Practitioner Family
DX: M25.811 Other specified joint disorders, right shoulder (principal); M75.101 Unspecified rotator cuff tear or rupture of right shoulder, not specified as traumatic

== ENCOUNTER 2023-02-22 07:00 | Outpatient (RCR) | payer OTHER | END 2023-03-03 | LOC: M PT 07:00 | PROVIDERS: ATTEND Nurse Practitioner Family | DX: M75.101 Unspecified rotator cuff tear or rupture of right shoulder, not specified as traumatic (principal) ==

== ENCOUNTER 2023-03-17 13:00 | Outpatient (RCR) | payer OTHER | END 2023-04-03 | LOC: M PT 13:00 | PROVIDERS: ATTEND Nurse Practitioner Family | DX: M75.101 Unspecified rotator cuff tear or rupture of right shoulder, not specified as traumatic (principal); M25.811 Other specified joint disorders, right shoulder ==

== ENCOUNTER 2023-03-24 15:08 | Emergency (ER) | payer OTHER ==
[~2023-03-24] VITALS: Ht 177.8 cm; Wt 97.1 kg
[2023-03-24 19:02] LABS: BASO % 0.4 % (0.0-1.0); EOS # 0.1 10^3/uL (0.0-0.5); EOS % 1.6 % (0.0-3.0); HEMATOCRIT 43.2 % (42.0-52.0); HEMOGLOBIN 14.4 g/dl (13.5-17.5); LYMPH # 1.1 10^3/uL (1.5-5.0); LYMPH % 15.1 % (24.0-44.0); MEAN CORPUSCULAR HEMOGLOBIN 31.4 pg (27.0-33.0); MEAN CORPUSCULAR HGB CONC 33.3 g/dl (32.0-36.5); MEAN CORPUSCULAR VOLUME 94.1 fl (80.0-96.0); MONO # 0.9 10^3/uL (0.0-0.8); NEUTROPHILS # 5.2 10^3/uL (1.5-8.5); NEUTROPHILS % 70.6 % (36.0-66.0); PLATELET COUNT, AUTOMATED 151 10^3/uL (150-450); RED BLOOD COUNT 4.59 10^6/uL (4.30-6.10); WHITE BLOOD COUNT 7.3 10^3/uL (4.0-10.0)
[2023-03-24] MEDS ORDERED: ACETAMINOPHEN 500 MG TAB PO ONE (19:50)
[2023-03-24 20:45] VITALS: BP 144/78; TEMP 97.9; O2SAT 96
== END 2023-03-24 21:09 | disposition home or self-care (01) ==
LOC: M ED 15:08
DX: U07.1 COVID-19 (principal); E03.9 Hypothyroidism, unspecified; G43.909 Migraine, unspecified, not intractable, without status migrainosus; F10.10 Alcohol abuse, uncomplicated; Z88.8 Allergy status to other drugs, medicaments and biological substances; Z87.891 Personal history of nicotine dependence; Z79.52 Long term (current) use of systemic steroids; Z79.01 Long term (current) use of anticoagulants; Z79.899 Other long term (current) drug therapy

== ENCOUNTER → 2023-04-08 | Outpatient (CLI) | payer OTHER ==
[2023-04-08 09:09] LABS: HEMOGLOBIN A1c 5.4 % (4.0-6.0)
[2023-04-08 09:21] LABS: CREATININE, URINE 91.3 MG/DL; MALB URINE SIEMENS < 3.0 MG/L; MAU/CREAT RATIO 3.2 MCG/MG (0.0-30.0)
[2023-04-08 09:22] LABS: ALBUMIN 3.6 G/DL (3.2-5.2); ALKALINE PHOSPHATASE 43 U/L (46-116); ALT/SGPT 26 U/L (7.0-40); AST/SGOT 9 U/L (<34); BILIRUBIN,TOTAL 0.3 MG/DL (0.3-1.2); BLOOD UREA NITROGEN 21 MG/DL (9-23); CALCIUM LEVEL 8.4 MG/DL (8.3-10.6); CARBON DIOXIDE LEVEL 32 MMOL/L (20-31); CHLORIDE LEVEL 111 MMOL/L (98-107); CHOLESTEROL LEVEL 113 MG/DL (<200); CHOLESTEROL RISK RATIO 2.66 (<5); CREATININE FOR GFR 0.74 MG/DL (0.70-1.30); GLOMERULAR FILTRATION RATE > 60.0 (>49); GLUCOSE, FASTING 91 MG/DL (74-106); HDL CHOLESTEROL 42.4 MG/DL (>40); LDL CHOLESTEROL 58.6 MG/DL (<100); MAGNESIUM LEVEL 2.2 MG/DL (1.8-2.4); NON-HDL-C 70.6 MG/DL; POTASSIUM SERUM 3.6 MMOL/L (3.5-5.1); SODIUM LEVEL 146 MMOL/L (136-145); TOTAL PROTEIN 6.1 G/DL (5.7-8.2); TRIGLYCERIDES LEVEL 60 MG/DL (<150)
[2023-04-08 09:23] LABS: THYROID STIMULATING HORMONE 0.765 uIU/ML (0.55-4.78); THYROXINE (T4) 5.3 UG/DL (4.5-10.9)
[2023-04-08 09:24] LABS: VITAMIN B12 LEVEL 546 PG/ML (211-911)
[2023-04-08 09:27] LABS: BASO # 0.1 10^3/uL (0.0-0.2); BASO % 0.9 % (0.0-1.0); EOS % 0.7 % (0.0-3.0); HEMATOCRIT 39.8 % (42.0-52.0); HEMOGLOBIN 13.1 g/dl (13.5-17.5); LYMPH # 2.3 10^3/uL (1.5-5.0); LYMPH % 39.6 % (24.0-44.0); MEAN CORPUSCULAR HEMOGLOBIN 30.9 pg (27.0-33.0); MEAN CORPUSCULAR HGB CONC 32.9 g/dl (32.0-36.5); MEAN CORPUSCULAR VOLUME 93.9 fl (80.0-96.0); MONO # 0.5 10^3/uL (0.0-0.8); MONO % 9.4 % (2.0-8.0); NEUTROPHILS # 2.8 10^3/uL (1.5-8.5); NEUTROPHILS % 49.1 % (36.0-66.0); PLATELET COUNT, AUTOMATED 165 10^3/uL (150-450); RED BLOOD COUNT 4.24 10^6/uL (4.30-6.10); WHITE BLOOD COUNT 5.8 10^3/uL (4.0-10.0)
[2023-04-08 10:06] LABS: TOTAL 25(OH) VITAMIN D 21.5 NG/ML (20.0-100.0)
[2023-04-08 10:34] LABS: TOTAL T3 108.6 NG/DL (60.0-181.0)
== END ==
LOC: M LAB 08:10
PROVIDERS: ATTEND Nurse Practitioner Family
DX: E11.9 Type 2 diabetes mellitus without complications (principal); E78.2 Mixed hyperlipidemia; E55.9 Vitamin D deficiency, unspecified; I10 Essential (primary) hypertension; E03.9 Hypothyroidism, unspecified

== ENCOUNTER → 2023-04-08 | Outpatient (REF) | payer OTHER | LOC: M LAB REF 15:02 | PROVIDERS: ATTEND Nurse Practitioner Family | DX: R19.7 Diarrhea, unspecified (principal) ==

== ENCOUNTER 2023-05-31 08:27 | Day surgery (SDC) | payer OTHER ==
[~2023-05-31] VITALS: Ht 177.8 cm; Wt 93.1 kg
[~2023-05-31 08:27] MED LIST changes: +ALBU6.7H6 INH; +SEMA2PEN SQ; +TIOT18INH INH; +XALA0.007 OU
[2023-05-31] MEDS: NS 1,000 ML IV ONE (09:15)
[2023-05-31] MEDS ORDERED: LIDOCAINE 2% 100MG/5ML SDV (FOR ANES.) As Ordered ONE (10:02)
[2023-05-31] MEDS ORDERED: propofoL 200 MG/20 ML VIAL As Ordered ONE (10:02)
[2023-05-31] MEDS ORDERED: fentaNYL 100 MCG/2 ML INJECTION As Ordered ONE (10:16)
[2023-05-31 11:11] VITALS: TEMP 97.8
[2023-05-31] MEDS: AMOXICILLIN 500 MG CAP PO ONE (11:26)
[2023-05-31 11:30] VITALS: BP 123/71; O2SAT 95
== END 2023-05-31 11:50 | disposition home or self-care (01) ==
LOC: M OPP 08:27
PROVIDERS: ATTEND Internal Medicine Gastroenterology
DX: D50.9 Iron deficiency anemia, unspecified (principal); K21.00 Gastro-esophageal reflux disease with esophagitis, without bleeding; D12.3 Benign neoplasm of transverse colon; D12.8 Benign neoplasm of rectum; D12.2 Benign neoplasm of ascending colon; K57.30 Diverticulosis of large intestine without perforation or abscess without bleeding; D12.5 Benign neoplasm of sigmoid colon; K64.8 Other hemorrhoids; K64.4 Residual hemorrhoidal skin tags; K29.70 Gastritis, unspecified, without bleeding; Z85.828 Personal history of other malignant neoplasm of skin; E11.9 Type 2 diabetes mellitus without complications; I48.91 Unspecified atrial fibrillation; I10 Essential (primary) hypertension; E03.9 Hypothyroidism, unspecified; E78.00 Pure hypercholesterolemia, unspecified; Z86.73 Personal history of transient ischemic attack (TIA), and cerebral infarction without residual deficits; Z79.890 Hormone replacement therapy; Z79.899 Other long term (current) drug therapy; Z79.01 Long term (current) use of anticoagulants; Z79.85 Long-term (current) use of injectable non-insulin antidiabetic drugs; G47.30 Sleep apnea, unspecified; Z88.8 Allergy status to other drugs, medicaments and biological substances; Z87.891 Personal history of nicotine dependence
CPT/HCPCS: 43239; 45385; 88305; J3010

== ENCOUNTER → 2023-07-12 | Outpatient (CLI) | payer OTHER ==
[~2023-07-12] MED LIST changes: +PROHANCE 279.3MG/ML 15ML VIAL As Ordered ONE; +PROHANCE 279.3MG/ML 5ML VIAL As Ordered ONE
== END ==
LOC: M RAD 15:43
PROVIDERS: ATTEND Nurse Practitioner Family
DX: K86.81 Exocrine pancreatic insufficiency (principal); N28.1 Cyst of kidney, acquired
CPT/HCPCS: 74183; A9576

== ENCOUNTER → 2023-07-19 | Outpatient (CLI) | payer OTHER ==
[~2023-07-19] MED LIST changes: -PROHANCE 279.3MG/ML 15ML VIAL As Ordered ONE; -PROHANCE 279.3MG/ML 5ML VIAL As Ordered ONE
== END ==
LOC: M LAB 16:21
PROVIDERS: ATTEND Nurse Practitioner Family
DX: K86.81 Exocrine pancreatic insufficiency (principal)

== ENCOUNTER 2023-08-03 19:40 | Emergency (ER) | payer OTHER ==
[~2023-08-03] VITALS: Ht 175.3 cm; Wt 92.2 kg
[2023-08-04 00:32] LABS: BASO # 0.1 10^3/uL (0.0-0.2); BASO % 0.9 % (0.0-1.0); EOS # 0.2 10^3/uL (0.0-0.5); HEMATOCRIT 40.8 % (42.0-52.0); HEMOGLOBIN 13.9 g/dl (13.5-17.5); LYMPH # 1.5 10^3/uL (1.5-5.0); MEAN CORPUSCULAR HEMOGLOBIN 31.7 pg (27.0-33.0); MEAN CORPUSCULAR HGB CONC 34.1 g/dl (32.0-36.5); MEAN CORPUSCULAR VOLUME 92.9 fl (80.0-96.0); MONO # 0.6 10^3/uL (0.0-0.8); MONO % 10.6 % (2.0-8.0); NEUTROPHILS # 3.3 10^3/uL (1.5-8.5); NEUTROPHILS % 58.3 % (36.0-66.0); PLATELET COUNT, AUTOMATED 146 10^3/uL (150-450); RED BLOOD COUNT 4.39 10^6/uL (4.30-6.10); WHITE BLOOD COUNT 5.6 10^3/uL (4.0-10.0)
[2023-08-04 00:42] LABS: ERYTHROCYTE SEDIMENTATION RATE 8 mm/hr (0-20)
[2023-08-04 00:56] LABS: C REACTIVE PROTEIN QUANTITATIV < 0.40 MG/DL (<1.0)
[2023-08-04 00:58] LABS: ALBUMIN 3.7 G/DL (3.2-5.2); ALKALINE PHOSPHATASE 54 U/L (46-116); ALT/SGPT 19 U/L (7.0-40); AST/SGOT 9 U/L (<34); BILIRUBIN,DIRECT 0.3 MG/DL (<0.4); BILIRUBIN,TOTAL 0.7 MG/DL (0.3-1.2); BLOOD UREA NITROGEN 15 MG/DL (9-23); CALCIUM LEVEL 8.5 MG/DL (8.3-10.6); CARBON DIOXIDE LEVEL 26 MMOL/L (20-31); CHLORIDE LEVEL 108 MMOL/L (98-107); GLOMERULAR FILTRATION RATE > 60.0 (>49); GLUCOSE, FASTING 82 MG/DL (74-106); POTASSIUM SERUM 3.9 MMOL/L (3.5-5.1); SODIUM LEVEL 142 MMOL/L (136-145); TOTAL PROTEIN 6.3 G/DL (5.7-8.2)
[2023-08-04 02:51] VITALS: BP 138/74; TEMP 98.1; O2SAT 99
== END 2023-08-04 02:55 | disposition home or self-care (01) ==
LOC: M ED 19:40
DX: L95.9 Vasculitis limited to the skin, unspecified (principal); I48.91 Unspecified atrial fibrillation; I10 Essential (primary) hypertension; E78.5 Hyperlipidemia, unspecified; D50.9 Iron deficiency anemia, unspecified; D41.9 Neoplasm of uncertain behavior of unspecified urinary organ; G47.30 Sleep apnea, unspecified; Z85.828 Personal history of other malignant neoplasm of skin; Z87.891 Personal history of nicotine dependence; Z79.01 Long term (current) use of anticoagulants; Z79.4 Long term (current) use of insulin; Z79.899 Other long term (current) drug therapy; Z88.8 Allergy status to other drugs, medicaments and biological substances

== ENCOUNTER → 2023-08-06 | Outpatient (CLI) | payer OTHER ==
[2023-08-06 09:18] LABS: BASO % 0.8 % (0.0-1.0); EOS # 0.2 10^3/uL (0.0-0.5); EOS % 3.1 % (0.0-3.0); HEMATOCRIT 40.2 % (42.0-52.0); HEMOGLOBIN 13.7 g/dl (13.5-17.5); MEAN CORPUSCULAR HEMOGLOBIN 31.6 pg (27.0-33.0); MEAN CORPUSCULAR HGB CONC 34.1 g/dl (32.0-36.5); MEAN CORPUSCULAR VOLUME 92.8 fl (80.0-96.0); MONO # 0.5 10^3/uL (0.0-0.8); MONO % 9.2 % (2.0-8.0); NEUTROPHILS # 3.5 10^3/uL (1.5-8.5); NEUTROPHILS % 67.7 % (36.0-66.0); PLATELET COUNT, AUTOMATED 143 10^3/uL (150-450); RED BLOOD COUNT 4.33 10^6/uL (4.30-6.10); WHITE BLOOD COUNT 5.2 10^3/uL (4.0-10.0)
[2023-08-06 09:35] LABS: HEMOGLOBIN A1c 5.1 % (4.0-6.0)
[2023-08-06 09:40] LABS: ALBUMIN 3.7 G/DL (3.2-5.2); ALKALINE PHOSPHATASE 52 U/L (46-116); ALT/SGPT 20 U/L (7.0-40); AST/SGOT 11 U/L (<34); BILIRUBIN,TOTAL 0.8 MG/DL (0.3-1.2); BLOOD UREA NITROGEN 11 MG/DL (9-23); CALCIUM LEVEL 8.5 MG/DL (8.3-10.6); CARBON DIOXIDE LEVEL 26 MMOL/L (20-31); CHLORIDE LEVEL 108 MMOL/L (98-107); CHOLESTEROL LEVEL 89 MG/DL (<200); CHOLESTEROL RISK RATIO 2.57 (<5); CREATININE FOR GFR 1.03 MG/DL (0.70-1.30); GLOMERULAR FILTRATION RATE > 60.0 (>49); GLUCOSE, FASTING 92 MG/DL (74-106); HDL CHOLESTEROL 34.6 MG/DL (>40); LDL CHOLESTEROL 42.4 MG/DL (<100); MAGNESIUM LEVEL 1.9 MG/DL (1.8-2.4); NON-HDL-C 54.4 MG/DL; SODIUM LEVEL 141 MMOL/L (136-145); TOTAL PROTEIN 6.1 G/DL (5.7-8.2); TRIGLYCERIDES LEVEL 60 MG/DL (<150)
[2023-08-06 09:41] LABS: TOTAL 25(OH) VITAMIN D 17.6 NG/ML (20.0-100.0); TOTAL T3 101.6 NG/DL (60.0-181.0); VITAMIN B12 LEVEL 574 PG/ML (211-911)
[2023-08-06 09:42] LABS: THYROID STIMULATING HORMONE 0.613 uIU/ML (0.55-4.78); THYROXINE (T4) 8.6 UG/DL (4.5-10.9)
[2023-08-06 09:56] LABS: CREATININE, URINE 302.2 MG/DL; MAU/CREAT RATIO 1.9 MCG/MG (0.0-30.0)
== END ==
LOC: M LAB 08:42
PROVIDERS: ATTEND Nurse Practitioner Family
DX: E11.9 Type 2 diabetes mellitus without complications (principal); E03.9 Hypothyroidism, unspecified; G62.9 Polyneuropathy, unspecified

== ENCOUNTER 2023-08-09 15:33 | Emergency (ER) | payer OTHER ==
[~2023-08-09] VITALS: Ht 175.3 cm; Wt 93.3 kg
[2023-08-09 19:28] LABS: BASO % 0.8 % (0.0-1.0); EOS # 0.2 10^3/uL (0.0-0.5); EOS % 3.1 % (0.0-3.0); HEMATOCRIT 40.2 % (42.0-52.0); HEMOGLOBIN 13.5 g/dl (13.5-17.5); LYMPH # 1.5 10^3/uL (1.5-5.0); LYMPH % 28.9 % (24.0-44.0); MEAN CORPUSCULAR HEMOGLOBIN 31.6 pg (27.0-33.0); MEAN CORPUSCULAR HGB CONC 33.6 g/dl (32.0-36.5); MEAN CORPUSCULAR VOLUME 94.1 fl (80.0-96.0); MONO # 0.5 10^3/uL (0.0-0.8); MONO % 10.1 % (2.0-8.0); NEUTROPHILS % 56.9 % (36.0-66.0); PLATELET COUNT, AUTOMATED 140 10^3/uL (150-450); RED BLOOD COUNT 4.27 10^6/uL (4.30-6.10); WHITE BLOOD COUNT 5.2 10^3/uL (4.0-10.0)
[2023-08-09 19:32] LABS: ERYTHROCYTE SEDIMENTATION RATE 7 mm/hr (0-20)
[2023-08-09 19:46] LABS: C REACTIVE PROTEIN QUANTITATIV < 0.40 MG/DL (<1.0)
[2023-08-09 19:48] LABS: BLOOD UREA NITROGEN 24 MG/DL (9-23); CALCIUM LEVEL 8.4 MG/DL (8.3-10.6); CARBON DIOXIDE LEVEL 26 MMOL/L (20-31); CHLORIDE LEVEL 113 MMOL/L (98-107); GLOMERULAR FILTRATION RATE > 60.0 (>49); GLUCOSE, FASTING 84 MG/DL (74-106); SODIUM LEVEL 145 MMOL/L (136-145)
[2023-08-09] MEDS ORDERED: PRED20TA PO (20:22)
[2023-08-09] MEDS: predniSONE 20 MG TAB PO ONE (20:27)
[2023-08-09 20:32] VITALS: BP 135/75; TEMP 97.3; O2SAT 95
== END 2023-08-09 20:33 | disposition home or self-care (01) ==
LOC: M ED 15:33
DX: L95.9 Vasculitis limited to the skin, unspecified (principal); E11.9 Type 2 diabetes mellitus without complications; I10 Essential (primary) hypertension; E78.5 Hyperlipidemia, unspecified; K58.9 Irritable bowel syndrome, unspecified; F10.10 Alcohol abuse, uncomplicated; Z86.79 Personal history of other diseases of the circulatory system; Z88.8 Allergy status to other drugs, medicaments and biological substances; Z79.52 Long term (current) use of systemic steroids; Z79.02 Long term (current) use of antithrombotics/antiplatelets; Z79.01 Long term (current) use of anticoagulants; Z79.899 Other long term (current) drug therapy
CPT/HCPCS: 36415; 80048; 85025; 85652; 86140; 99283; J7512

== ENCOUNTER → 2023-08-30 | Outpatient (CLI) | payer OTHER | LOC: M RAD 06:38 | PROVIDERS: ATTEND Nurse Practitioner Family | DX: R10.11 Right upper quadrant pain (principal) | CPT/HCPCS: 78227; A9537 ==

== ENCOUNTER 2023-11-30 11:10 | Observation (INO) | payer OTHER ==
[~2023-11-30] VITALS: Ht 172.7 cm; Wt 83.0 kg
[~2023-11-30 11:10] MED LIST changes: +GABA-1490 PO; -GABA600T4 PO
[2023-11-30 12:38] LABS: BASO % 0.3 % (0.0-1.0); EOS # 0.1 10^3/uL (0.0-0.5); EOS % 0.3 % (0.0-3.0); HEMATOCRIT 35.6 % (42.0-52.0); LYMPH # 1.5 10^3/uL (1.5-5.0); MEAN CORPUSCULAR HEMOGLOBIN 32.2 pg (27.0-33.0); MEAN CORPUSCULAR HGB CONC 33.7 g/dl (32.0-36.5); MEAN CORPUSCULAR VOLUME 95.4 fl (80.0-96.0); MONO # 1.3 10^3/uL (0.0-0.8); MONO % 8.8 % (2.0-8.0); NEUTROPHILS % 80.2 % (36.0-66.0); PLATELET COUNT, AUTOMATED 141 10^3/uL (150-450); RED BLOOD COUNT 3.73 10^6/uL (4.30-6.10); WHITE BLOOD COUNT 14.9 10^3/uL (4.0-10.0)
[2023-11-30 12:48] LABS: ETHYL ALCOHOL (ETHANOL) < 0.003 % (0.000-0.010)
[2023-11-30 12:49] LABS: BLOOD UREA NITROGEN 38 MG/DL (9-23); CALCIUM LEVEL 8.7 MG/DL (8.3-10.6); CARBON DIOXIDE LEVEL 25 MMOL/L (20-31); CHLORIDE LEVEL 109 MMOL/L (98-107); CREATININE FOR GFR 0.99 MG/DL (0.70-1.30); GLOMERULAR FILTRATION RATE > 60.0 (>49); GLUCOSE, FASTING 103 MG/DL (74-106); SODIUM LEVEL 141 MMOL/L (136-145)
[2023-11-30 12:52] LABS: THYROID STIMULATING HORMONE 1.696 uIU/ML (0.55-4.78)
[2023-11-30 13:12] LABS: AMPHETAMINES LEVEL URINE NEGATIVE (NEGATIVE); BARBITURATES URINE NEGATIVE (NEGATIVE); COCAINE METABOLITE URINE NEGATIVE (NEGATIVE); METHADONE URINE NEGATIVE (NEGATIVE); OPIATES URINE NEGATIVE (NEGATIVE); PHENCYCLIDINE URINE NEGATIVE (NEGATIVE)
[2023-11-30 13:14] LABS: BENZODIAZEPINES URINE POSITIVE (NEGATIVE); CANNABINOIDS URINE POSITIVE (NEGATIVE)
[2023-11-30] MEDS: ACETAMINOPHEN *IV* 1,000 MG in IV 1 EA IV ONE (14:33)
[2023-11-30] MEDS ORDERED: ISOVUE-370 76% 100ML VIAL As Ordered ONE (14:55)
[2023-11-30] MEDS ORDERED: LIDOCAINE 5% (LIDODERM) PATCH TD PRN (15:00)
[2023-11-30] MEDS ORDERED: ALBUTEROL 90 MCG/ACT 8GM HFA INHALER INH PRN (15:15)
[2023-11-30] MEDS ORDERED: OMEP-173 PO (15:39)
[2023-11-30] MEDS ORDERED: ALBU8.5H INH (15:39)
[2023-11-30] MEDS ORDERED: PREG100C2 PO (15:39)
[2023-11-30] MEDS ORDERED: ERGO500029 PO (15:39)
[2023-11-30] MEDS ORDERED: HOME MED LIST COMPLETE! XX SCH (15:40)
[2023-11-30 18:10] VITALS: BP 110/69; TEMP 98.3; O2SAT 96
[2023-11-30] MEDS: ADVAIR HFA 230/21MCG INHALER INH SCH (19:23)
[2023-11-30 20:00] VITALS: BP 109/58; TEMP 98.6; O2SAT 90
[2023-11-30] MEDS: APIXABAN 5 MG TAB (ELIQUIS) PO SCH (20:21)
[2023-11-30] MEDS: ACETAMINOPHEN TAB 650MG DOSE (2X325MG) PO PRN (20:22)
[2023-11-30 23:42] VITALS: BP 95/55; TEMP 98.4; O2SAT 93
[2023-12-01] VITALS (7 sets, daily range): BP systolic 104–118; BP diastolic 54–79; TEMP 98.1–98.9; O2SAT 93–99
[2023-12-01 05:44] LABS: HEMATOCRIT 36.3 % (42.0-52.0); HEMOGLOBIN 11.8 g/dl (13.5-17.5); MEAN CORPUSCULAR HEMOGLOBIN 31.7 pg (27.0-33.0); MEAN CORPUSCULAR HGB CONC 32.5 g/dl (32.0-36.5); MEAN CORPUSCULAR VOLUME 97.6 fl (80.0-96.0); PLATELET COUNT, AUTOMATED 132 10^3/uL (150-450); RED BLOOD COUNT 3.72 10^6/uL (4.30-6.10); WHITE BLOOD COUNT 11.2 10^3/uL (4.0-10.0)
[2023-12-01 06:09] LABS: BLOOD UREA NITROGEN 19 MG/DL (9-23); CALCIUM LEVEL 8.4 MG/DL (8.3-10.6); CARBON DIOXIDE LEVEL 25 MMOL/L (20-31); CHLORIDE LEVEL 112 MMOL/L (98-107); CREATININE FOR GFR 0.84 MG/DL (0.70-1.30); GLOMERULAR FILTRATION RATE > 60.0 (>49); GLUCOSE, FASTING 102 MG/DL (74-106); SODIUM LEVEL 143 MMOL/L (136-145)
[2023-12-01] MEDS ORDERED: PREGABALIN 100 MG CAP (LYRICA) PO PRN (06:45)
[2023-12-01] MEDS ORDERED: diazePAM 5MG TABLET PO PRN (06:45)
[2023-12-01 06:59] LABS: PROCALCITONIN 5.03 ng/ml
[2023-12-01] MEDS: TIOTROPIUM INHALER/CAPSULE (SPIRIVA) INH SCH (07:42)
[2023-12-01] MEDS: LEVOTHYROXINE 25MCG TABLET (0.025MG) PO SCH (08:38)
[2023-12-01] MEDS: MONTELUKAST 10 MG TAB PO SCH (09:30)
[2023-12-01] MEDS: OMEPRAZOLE 20MG CAP PO SCH (09:30)
[2023-12-01] MEDS: METOPROLOL TART 25 MG TABLET PO SCH (09:31)
[2023-12-01] MEDS: NORCO, ANEXSIA 5/325MG TABLET (HYDROcodone/ACETAMINOPHEN) PO PRN (11:30)
[2023-12-01] MEDS ORDERED: PROHANCE 279.3MG/ML 5ML VIAL As Ordered ONE (11:34)
[2023-12-01] MEDS ORDERED: PROHANCE 279.3MG/ML 15ML VIAL As Ordered ONE (11:35)
[2023-12-01] MEDS: cefTRIAXone SOD 1 GM in D5W MINI-BAG PLUS 50 ML IV SCH (17:24)
[2023-12-01] MEDS: AZITHROMYCIN 250MG TABLET PO SCH (20:03)
[2023-12-01] MEDS: ATORVASTATIN 20 MG TAB PO SCH (20:04)
[2023-12-01] MEDS: LATANOPROST 0.005% OPHTH SOLN 2.5 ML OU SCH (20:06)
[2023-12-02 03:32] VITALS: BP 123/73; TEMP 98.4; O2SAT 94
[2023-12-02 05:11] LABS: BASO % 0.4 % (0.0-1.0); EOS # 0.2 10^3/uL (0.0-0.5); EOS % 1.6 % (0.0-3.0); HEMATOCRIT 37.5 % (42.0-52.0); HEMOGLOBIN 12.2 g/dl (13.5-17.5); LYMPH # 1.3 10^3/uL (1.5-5.0); MEAN CORPUSCULAR HEMOGLOBIN 31.9 pg (27.0-33.0); MEAN CORPUSCULAR HGB CONC 32.5 g/dl (32.0-36.5); MEAN CORPUSCULAR VOLUME 97.9 fl (80.0-96.0); MONO # 0.9 10^3/uL (0.0-0.8); MONO % 8.3 % (2.0-8.0); NEUTROPHILS # 8.5 10^3/uL (1.5-8.5); NEUTROPHILS % 77.3 % (36.0-66.0); PLATELET COUNT, AUTOMATED 148 10^3/uL (150-450); RED BLOOD COUNT 3.83 10^6/uL (4.30-6.10); WHITE BLOOD COUNT 10.9 10^3/uL (4.0-10.0)
[2023-12-02 05:26] LABS: BLOOD UREA NITROGEN 17 MG/DL (9-23); CALCIUM LEVEL 8.7 MG/DL (8.3-10.6); CARBON DIOXIDE LEVEL 25 MMOL/L (20-31); CHLORIDE LEVEL 113 MMOL/L (98-107); CREATININE FOR GFR 0.82 MG/DL (0.70-1.30); GLOMERULAR FILTRATION RATE > 60.0 (>49); GLUCOSE, FASTING 113 MG/DL (74-106); POTASSIUM SERUM 4.6 MMOL/L (3.5-5.1); SODIUM LEVEL 144 MMOL/L (136-145)
[2023-12-02 05:32] LABS: PROCALCITONIN 3.09 ng/ml
[2023-12-02 08:00] VITALS: BP 123/72; TEMP 97.4; O2SAT 92
[2023-12-02 09:49] VITALS: BP 123/72
[2023-12-02] MEDS ORDERED: ACET-897 PO (10:39)
[2023-12-02] MEDS ORDERED: METO1TAB87 PO (10:39)
[2023-12-02] MEDS ORDERED: LIDO1PAD TOP (10:39)
[2023-12-02] MEDS ORDERED: AZIT500T5 PO (10:39)
[2023-12-02] MEDS ORDERED: CEFD1CAP9 PO (10:39)
[2023-12-06 18:48] LABS: URINE STREP PNEUMONIAE ANTIGEN NOT DETECTED (NOT DETECT)
== END 2023-12-02 13:46 | disposition home or self-care (01) ==
LOC: M ED 11:10 → M ED INP 11:11 → M PCU 18:01
PROVIDERS: ADMIT Internal Medicine; ATTEND Internal Medicine
DX: R55 Syncope and collapse (principal); J44.9 Chronic obstructive pulmonary disease, unspecified; I48.91 Unspecified atrial fibrillation; I10 Essential (primary) hypertension; J18.9 Pneumonia, unspecified organism; E78.5 Hyperlipidemia, unspecified; M54.50 Low back pain, unspecified; E03.9 Hypothyroidism, unspecified; Z79.51 Long term (current) use of inhaled steroids; Z79.2 Long term (current) use of antibiotics; Z79.899 Other long term (current) drug therapy; Z88.8 Allergy status to other drugs, medicaments and biological substances; Z79.01 Long term (current) use of anticoagulants
CPT/HCPCS: 36415; 70450; 70496; 70498; 71046; 71250; 72125; 72131; 72156; 72158; 80048; 80307; 81001; 82077; 84145; 84443; 85025; 85027; 86140; 87040; 87086; 87449; 87486; 87581; 87633; 87641; 87798; 87899; 93005; 93041; 93306; 94640; 94760; 96365; 96375; 97161; 97165; 97530; 99285; A9576; J0131; J0696; Q9967

== ENCOUNTER → 2023-12-02 | Outpatient (CLI) | payer OTHER ==
[~2023-12-02] MED LIST changes: +ACET-897 PO; +ALBU8.5H INH; +AZIT500T5 PO; +CEFD1CAP9 PO; +ERGO500029 PO; +LIDO1PAD TOP; +METO1TAB87 PO; +OMEP-173 PO; +PREG100C2 PO
== END ==
LOC: M EKG 13:52
PROVIDERS: ATTEND Internal Medicine
DX: R55 Syncope and collapse (principal)

== ENCOUNTER 2023-12-23 21:22 | Inpatient (IN) | payer OTHER ==
[~2023-12-23] VITALS: Ht 172.7 cm; Wt 86.7 kg
[2023-12-23 22:08] LABS: BASO % 0.3 % (0.0-1.0); EOS # 0.1 10^3/uL (0.0-0.5); EOS % 0.9 % (0.0-3.0); HEMATOCRIT 39.1 % (42.0-52.0); HEMOGLOBIN 12.8 g/dl (13.5-17.5); LYMPH # 0.8 10^3/uL (1.5-5.0); LYMPH % 5.9 % (24.0-44.0); MEAN CORPUSCULAR HGB CONC 32.7 g/dl (32.0-36.5); MEAN CORPUSCULAR VOLUME 97.8 fl (80.0-96.0); MONO % 7.2 % (2.0-8.0); NEUTROPHILS # 11.2 10^3/uL (1.5-8.5); NEUTROPHILS % 85.3 % (36.0-66.0); PLATELET COUNT, AUTOMATED 120 10^3/uL (150-450); WHITE BLOOD COUNT 13.2 10^3/uL (4.0-10.0)
[2023-12-23] MEDS: ACETAMINOPHEN 325 MG TAB PO ONE (22:28)
[2023-12-23 22:36] LABS: ALBUMIN 3.6 G/DL (3.2-5.2); ALKALINE PHOSPHATASE 59 U/L (46-116); ALT/SGPT 19 U/L (7.0-40); AST/SGOT < 8 U/L (<34); BILIRUBIN,DIRECT 0.2 MG/DL (<0.4); BILIRUBIN,TOTAL 0.4 MG/DL (0.3-1.2); BLOOD UREA NITROGEN 24 MG/DL (9-23); CALCIUM LEVEL 8.8 MG/DL (8.3-10.6); CARBON DIOXIDE LEVEL 21 MMOL/L (20-31); CHLORIDE LEVEL 114 MMOL/L (98-107); CREATININE FOR GFR 0.83 MG/DL (0.70-1.30); GLOMERULAR FILTRATION RATE > 60.0 (>49); GLUCOSE, FASTING 136 MG/DL (74-106); POTASSIUM SERUM 3.7 MMOL/L (3.5-5.1); SODIUM LEVEL 142 MMOL/L (136-145); TOTAL PROTEIN 6.3 G/DL (5.7-8.2)
[2023-12-23] MEDS: IBUPROFEN 600MG TAB PO ONE (23:47)
[2023-12-24] VITALS (7 sets, daily range): BP systolic 120–141; BP diastolic 68–83; TEMP 97.9–98.2; O2SAT 92–96
[2023-12-24] MEDS ORDERED: MOM 30ML SUSPENSION UDC PO PRN (01:25)
[2023-12-24] MEDS ORDERED: ALBUTEROL SULFATE 2.5MG/0.5ML INH NEB SOLN NEB PRN (01:25)
[2023-12-24] MEDS ORDERED: LIDO1CRE2 TOP (01:40)
[2023-12-24] MEDS ORDERED: METO1TAB87 PO (01:40)
[2023-12-24] MEDS ORDERED: HYDR-4571 PO (01:40)
[2023-12-24] MEDS ORDERED: NALO4SPR3 (01:40)
[2023-12-24] MEDS ORDERED: ACET-842 PO (01:40)
[2023-12-24] MEDS ORDERED: HOME MED LIST COMPLETE! XX SCH (01:45)
[2023-12-24] MEDS ORDERED: methylPREDNISolone 125MG 2ML VIAL IV SCH (02:00)
[2023-12-24] MEDS ORDERED: ALBUTEROL SULFATE 2.5MG/0.5ML INH NEB SOLN INH PRN (02:00)
[2023-12-24] MEDS ORDERED: DEXTROSE 50% 50ML SYRINGE IV PRN (02:00)
[2023-12-24] MEDS: IPRATROPIUM 0.5MG/ALBUTEROL 2.5MG INH SOL UD 3ML (DUONEB) NEB SCH (02:00)
[2023-12-24] MEDS ORDERED: GLUCOSE 4 GM CHEW PO PRN (02:00)
[2023-12-24] MEDS ORDERED: PREGABALIN 100 MG CAP (LYRICA) PO PRN (02:00)
[2023-12-24] MEDS ORDERED: ALBUTEROL 90 MCG/ACT 8GM HFA INHALER INH PRN (02:00)
[2023-12-24] MEDS ORDERED: GLUCAGON INJ 1MG VIAL SC PRN (02:00)
[2023-12-24] MEDS: PIPERACILLIN/TAZOBACTAM SOD 3.375 GM in D5W MINI-BAG PLUS 50 ML IV SCH (02:55)
[2023-12-24 03:04] LABS: HEMATOCRIT 35.1 % (42.0-52.0); HEMOGLOBIN 11.4 g/dl (13.5-17.5); MEAN CORPUSCULAR HEMOGLOBIN 31.5 pg (27.0-33.0); MEAN CORPUSCULAR HGB CONC 32.5 g/dl (32.0-36.5); PLATELET COUNT, AUTOMATED 104 10^3/uL (150-450); RED BLOOD COUNT 3.62 10^6/uL (4.30-6.10); WHITE BLOOD COUNT 11.4 10^3/uL (4.0-10.0)
[2023-12-24] MEDS: ATORVASTATIN 20 MG TAB PO SCH (03:05)
[2023-12-24] MEDS: guaiFENesin ER TABLET 600 MG TAB PO SCH (03:06)
[2023-12-24] MEDS: methylPREDNISolone 125MG 2ML VIAL IV SCH (03:13)
[2023-12-24 03:41] LABS: ALBUMIN 3.2 G/DL (3.2-5.2); ALKALINE PHOSPHATASE 49 U/L (46-116); ALT/SGPT 16 U/L (7.0-40); AST/SGOT < 8 U/L (<34); BILIRUBIN,TOTAL 0.3 MG/DL (0.3-1.2); BLOOD UREA NITROGEN 20 MG/DL (9-23); CALCIUM LEVEL 8.6 MG/DL (8.3-10.6); CARBON DIOXIDE LEVEL 22 MMOL/L (20-31); CHLORIDE LEVEL 116 MMOL/L (98-107); CREATININE FOR GFR 0.77 MG/DL (0.70-1.30); GLOMERULAR FILTRATION RATE > 60.0 (>49); GLUCOSE, FASTING 113 MG/DL (74-106); POTASSIUM SERUM 3.8 MMOL/L (3.5-5.1); SODIUM LEVEL 144 MMOL/L (136-145); TOTAL PROTEIN 5.6 G/DL (5.7-8.2)
[2023-12-24] MEDS: LEVOTHYROXINE 25MCG TABLET (0.025MG) PO SCH (05:34)
[2023-12-24] MEDS: TIOTROPIUM INHALER/CAPSULE (SPIRIVA) INH SCH (07:40)
[2023-12-24] MEDS: APIXABAN 5 MG TAB (ELIQUIS) PO SCH (09:27)
[2023-12-24] MEDS: MONTELUKAST 10 MG TAB PO SCH (09:27)
[2023-12-24] MEDS: METOPROLOL TART 25 MG TABLET PO SCH (09:27)
[2023-12-24] MEDS: OMEPRAZOLE 20MG CAP PO SCH (09:27)
[2023-12-24] MEDS: INSULIN LISPRO (NovoLOG) PER UNIT SC SCH ×2 (09:27→20:38)
[2023-12-24] MEDS: NORCO, ANEXSIA 5/325MG TABLET (HYDROcodone/ACETAMINOPHEN) PO PRN (12:37)
[2023-12-24] MEDS: diazePAM 10 MG TAB PO PRN (18:57)
[2023-12-24] MEDS: LATANOPROST 0.005% OPHTH SOLN 2.5 ML OU SCH (21:37)
[2023-12-25] MEDS: ACETAMINOPHEN TAB 650MG DOSE (2X325MG) PO PRN (02:12)
[2023-12-25] MEDS: KETOROLAC 30 MG/ML 1ML VIAL IV ONE (03:30)
[2023-12-25 04:16] VITALS: BP 147/91; TEMP 98.2; O2SAT 93
[2023-12-25 06:03] VITALS: O2SAT 93
[2023-12-25 06:47] LABS: BASO % 0.2 % (0.0-1.0); HEMATOCRIT 35.9 % (42.0-52.0); HEMOGLOBIN 11.9 g/dl (13.5-17.5); LYMPH % 8.7 % (24.0-44.0); MEAN CORPUSCULAR HGB CONC 33.1 g/dl (32.0-36.5); MEAN CORPUSCULAR VOLUME 93.5 fl (80.0-96.0); MONO # 0.7 10^3/uL (0.0-0.8); MONO % 6.5 % (2.0-8.0); NEUTROPHILS # 9.3 10^3/uL (1.5-8.5); NEUTROPHILS % 84.1 % (36.0-66.0); PLATELET COUNT, AUTOMATED 105 10^3/uL (150-450); RED BLOOD COUNT 3.84 10^6/uL (4.30-6.10); WHITE BLOOD COUNT 11.1 10^3/uL (4.0-10.0)
[2023-12-25 09:00] VITALS: O2SAT 91
[2023-12-25] MEDS: FLUBLOK(EGGFREE) TRIVAL(24-25) VACCINE PF 0.5ML SYRINGE 18YRS & OLDER IM.IMMUN ONE (09:50)
[2023-12-25 12:00] VITALS: BP 128/76; TEMP 97.7; O2SAT 92
[2023-12-25 20:30] VITALS: BP 132/74; TEMP 98.4; O2SAT 93
[2023-12-26 03:20] VITALS: BP 126/74; TEMP 98.1; O2SAT 91
[2023-12-26 06:42] LABS: BASO % 0.1 % (0.0-1.0); HEMATOCRIT 36.4 % (42.0-52.0); LYMPH # 1.1 10^3/uL (1.5-5.0); LYMPH % 9.9 % (24.0-44.0); MEAN CORPUSCULAR HEMOGLOBIN 31.3 pg (27.0-33.0); MEAN CORPUSCULAR VOLUME 94.8 fl (80.0-96.0); MONO # 0.8 10^3/uL (0.0-0.8); MONO % 7.4 % (2.0-8.0); NEUTROPHILS # 8.6 10^3/uL (1.5-8.5); NEUTROPHILS % 81.7 % (36.0-66.0); PLATELET COUNT, AUTOMATED 112 10^3/uL (150-450); RED BLOOD COUNT 3.84 10^6/uL (4.30-6.10); WHITE BLOOD COUNT 10.6 10^3/uL (4.0-10.0)
[2023-12-26 09:08] VITALS: BP 127/74; TEMP 98.2; O2SAT 92
[2023-12-26 09:09] VITALS: BP 127/74; TEMP 98.2; O2SAT 92
[2023-12-26] MEDS: methylPREDNISolone 125MG 2ML VIAL IV SCH (11:20)
[2023-12-26 12:35] VITALS: BP_SYST 134; BP_DIAS 3; BP_DIAS 73; TEMP 98.2; O2SAT 93
[2023-12-26 14:01] VITALS: BP 99/47; TEMP 98.2; O2SAT 92
[2023-12-26 20:00] VITALS: BP 125/64; TEMP 97.9; O2SAT 91
[2023-12-27 04:00] VITALS: BP 137/72; TEMP 98.1; O2SAT 91
[2023-12-27 05:17] LABS: BASO % 0.1 % (0.0-1.0); HEMATOCRIT 36.4 % (42.0-52.0); HEMOGLOBIN 12.2 g/dl (13.5-17.5); LYMPH # 2.1 10^3/uL (1.5-5.0); LYMPH % 25.1 % (24.0-44.0); MEAN CORPUSCULAR HEMOGLOBIN 31.8 pg (27.0-33.0); MEAN CORPUSCULAR HGB CONC 33.5 g/dl (32.0-36.5); MEAN CORPUSCULAR VOLUME 94.8 fl (80.0-96.0); MONO # 0.7 10^3/uL (0.0-0.8); MONO % 8.8 % (2.0-8.0); NEUTROPHILS # 5.4 10^3/uL (1.5-8.5); NEUTROPHILS % 65.5 % (36.0-66.0); PLATELET COUNT, AUTOMATED 124 10^3/uL (150-450); RED BLOOD COUNT 3.84 10^6/uL (4.30-6.10); WHITE BLOOD COUNT 8.3 10^3/uL (4.0-10.0)
[2023-12-27 08:12] VITALS: BP 122/74
[2023-12-27] MEDS: predniSONE 20 MG TAB PO SCH (08:13)
[2023-12-27] MEDS ORDERED: VARIBAR PUDDING 40% w/v 230ML TUBE As Ordered ONE (11:10)
[2023-12-27] MEDS ORDERED: BARIUM SULFATE 700 MG TABLET (E-Z-DISK) As Ordered ONE (11:10)
[2023-12-27] MEDS ORDERED: VARIBAR NECTAR 40% w/v 240ML SUSP BTL As Ordered ONE (11:10)
[2023-12-27] MEDS ORDERED: E-Z-PAQUE 96% w/w SUSP 176GM BTL As Ordered ONE (11:10)
[2023-12-27 12:00] VITALS: BP 133/85; TEMP 97.9; O2SAT 94
[2023-12-27] MEDS ORDERED: MUCI600T31 PO (13:33)
[2023-12-27] MEDS ORDERED: PRED20TA PO (13:33)
[2023-12-27] MEDS ORDERED: AMOX875T PO (13:33)
[2023-12-29 19:51] LABS: URINE STREP PNEUMONIAE ANTIGEN NOT DETECTED (NOT DETECT)
== END 2023-12-27 15:15 | disposition home or self-care (01) | DRG 720 ==
LOC: M ED 21:22 → M ED INP 12-24 01:21 → M MSPAV 12-24 02:30
PROVIDERS: ADMIT Preventive Medicine Undersea and Hyperbaric Medicine; ATTEND Hospitalist
DX: A41.9 Sepsis, unspecified organism (principal); J44.1 Chronic obstructive pulmonary disease with (acute) exacerbation; J45.909 Unspecified asthma, uncomplicated; I48.91 Unspecified atrial fibrillation; I10 Essential (primary) hypertension; E78.5 Hyperlipidemia, unspecified; J44.0 Chronic obstructive pulmonary disease with (acute) lower respiratory infection; K58.9 Irritable bowel syndrome, unspecified; R13.10 Dysphagia, unspecified; J69.0 Pneumonitis due to inhalation of food and vomit; M54.50 Low back pain, unspecified; G89.29 Other chronic pain; E03.9 Hypothyroidism, unspecified; E11.42 Type 2 diabetes mellitus with diabetic polyneuropathy; Z96.612 Presence of left artificial shoulder joint; Z79.01 Long term (current) use of anticoagulants; Z79.890 Hormone replacement therapy; Z79.899 Other long term (current) drug therapy; Z88.8 Allergy status to other drugs, medicaments and biological substances; Z66 Do not resuscitate

== ENCOUNTER → 2024-01-31 | Outpatient (CLI) | payer OTHER ==
[~2024-01-31] MED LIST changes: +ACET-842 PO; +AMOX875T PO; +HYDR-4571 PO; +LIDO1CRE2 TOP; +MUCI600T31 PO; +NALO4SPR3
[2024-01-31 12:39] LABS: BASO % 0.7 % (0.0-1.0); EOS # 0.1 10^3/uL (0.0-0.5); EOS % 2.4 % (0.0-3.0); HEMOGLOBIN 13.2 g/dl (13.5-17.5); LYMPH # 1.5 10^3/uL (1.5-5.0); LYMPH % 24.4 % (24.0-44.0); MEAN CORPUSCULAR HEMOGLOBIN 30.8 pg (27.0-33.0); MEAN CORPUSCULAR HGB CONC 32.2 g/dl (32.0-36.5); MEAN CORPUSCULAR VOLUME 95.8 fl (80.0-96.0); MONO # 0.4 10^3/uL (0.0-0.8); MONO % 6.2 % (2.0-8.0); NEUTROPHILS # 3.9 10^3/uL (1.5-8.5); NEUTROPHILS % 65.6 % (36.0-66.0); PLATELET COUNT, AUTOMATED 145 10^3/uL (150-450); RED BLOOD COUNT 4.28 10^6/uL (4.30-6.10)
[2024-01-31 12:59] LABS: C REACTIVE PROTEIN QUANTITATIV < 0.40 MG/DL (<1.0)
[2024-01-31 13:00] LABS: ALBUMIN 3.5 G/DL (3.2-5.2); ALKALINE PHOSPHATASE 46 U/L (40-129); ALT/SGPT 29 U/L (7.0-40); AST/SGOT 15 U/L (<34); BILIRUBIN,TOTAL 0.3 MG/DL (0.3-1.2); BLOOD UREA NITROGEN 14 MG/DL (9-23); CALCIUM LEVEL 8.9 MG/DL (8.3-10.6); CARBON DIOXIDE LEVEL 27 MMOL/L (20-31); CHLORIDE LEVEL 113 MMOL/L (98-107); CHOLESTEROL LEVEL 107 MG/DL (<200); CHOLESTEROL RISK RATIO 2.72 (<5); CREATININE FOR GFR 0.82 MG/DL (0.70-1.30); GLOMERULAR FILTRATION RATE > 60.0 (>49); GLUCOSE, FASTING 152 MG/DL (74-106); HDL CHOLESTEROL 39.2 MG/DL (>40); LDL CHOLESTEROL 43.6 MG/DL (<100); NON-HDL-C 67.8 MG/DL; POTASSIUM SERUM 4.3 MMOL/L (3.5-5.1); SODIUM LEVEL 144 MMOL/L (136-145); TOTAL PROTEIN 6.2 G/DL (5.7-8.2); TRIGLYCERIDES LEVEL 121 MG/DL (<150)
[2024-01-31 13:16] LABS: HEMOGLOBIN A1c 5.4 % (4.0-6.0)
== END ==
LOC: M LAB 11:29
PROVIDERS: ATTEND Nurse Practitioner Family
DX: J18.9 Pneumonia, unspecified organism (principal)

== ENCOUNTER → 2024-02-02 | Outpatient (CLI) | payer OTHER ==
[2024-02-02 15:05] LABS: BASO # 0.1 10^3/uL (0.0-0.2); BASO % 1.2 % (0.0-1.0); EOS # 0.1 10^3/uL (0.0-0.5); EOS % 1.6 % (0.0-3.0); HEMATOCRIT 39.8 % (42.0-52.0); HEMOGLOBIN 12.9 g/dl (13.5-17.5); LYMPH # 1.7 10^3/uL (1.5-5.0); MEAN CORPUSCULAR HEMOGLOBIN 31.1 pg (27.0-33.0); MEAN CORPUSCULAR HGB CONC 32.4 g/dl (32.0-36.5); MEAN CORPUSCULAR VOLUME 95.9 fl (80.0-96.0); MONO # 0.8 10^3/uL (0.0-0.8); MONO % 10.9 % (2.0-8.0); NEUTROPHILS # 4.1 10^3/uL (1.5-8.5); NEUTROPHILS % 60.1 % (36.0-66.0); PLATELET COUNT, AUTOMATED 143 10^3/uL (150-450); RED BLOOD COUNT 4.15 10^6/uL (4.30-6.10); WHITE BLOOD COUNT 6.9 10^3/uL (4.0-10.0)
[2024-02-02 15:09] LABS: C REACTIVE PROTEIN QUANTITATIV < 0.40 MG/DL (<1.0)
[2024-02-02 15:10] LABS: ALBUMIN 3.6 G/DL (3.2-5.2); ALKALINE PHOSPHATASE 48 U/L (40-129); ALT/SGPT 35 U/L (7.0-40); AST/SGOT 12 U/L (<34); BILIRUBIN,TOTAL 0.2 MG/DL (0.3-1.2); BLOOD UREA NITROGEN 13 MG/DL (9-23); CARBON DIOXIDE LEVEL 26 MMOL/L (20-31); CHLORIDE LEVEL 115 MMOL/L (98-107); CHOLESTEROL LEVEL 111 MG/DL (<200); CHOLESTEROL RISK RATIO 2.23 (<5); CREATININE FOR GFR 0.78 MG/DL (0.70-1.30); GLOMERULAR FILTRATION RATE > 60.0 (>49); GLUCOSE, FASTING 85 MG/DL (74-106); HDL CHOLESTEROL 49.6 MG/DL (>40); LDL CHOLESTEROL 39.6 MG/DL (<100); NON-HDL-C 61.4 MG/DL; POTASSIUM SERUM 4.1 MMOL/L (3.5-5.1); SODIUM LEVEL 145 MMOL/L (136-145); TOTAL PROTEIN 6.3 G/DL (5.7-8.2); TRIGLYCERIDES LEVEL 109 MG/DL (<150)
== END ==
LOC: M PLAIMG 10:45
PROVIDERS: ATTEND Nurse Practitioner Family
DX: J18.9 Pneumonia, unspecified organism (principal); E11.9 Type 2 diabetes mellitus without complications

== ENCOUNTER 2024-05-12 11:26 | Inpatient (IN) | payer MEDICARE, OTHER ==
[~2024-05-12] VITALS: Ht 175.3 cm; Wt 89.8 kg
[~2024-05-12 11:26] MED LIST changes: -LIDO1CRE2 TOP; +LIDO4CRE12 TOP; +META-10 PO; -META1TAB22 PO; +NALO4SPR20; -NALO4SPR3
[2024-05-12 12:07] LABS: BASO % 0.5 % (0.0-1.0); EOS % 0.2 % (0.0-3.0); HEMATOCRIT 47.5 % (42.0-52.0); LYMPH # 0.5 10^3/uL (1.5-5.0); LYMPH % 7.4 % (24.0-44.0); MEAN CORPUSCULAR HEMOGLOBIN 30.9 pg (27.0-33.0); MEAN CORPUSCULAR HGB CONC 31.6 g/dl (32.0-36.5); MEAN CORPUSCULAR VOLUME 97.9 fl (80.0-96.0); MONO # 0.6 10^3/uL (0.0-0.8); MONO % 9.7 % (2.0-8.0); NEUTROPHILS # 5.1 10^3/uL (1.5-8.5); NEUTROPHILS % 81.9 % (36.0-66.0); PLATELET COUNT, AUTOMATED 142 10^3/uL (150-450); RED BLOOD COUNT 4.85 10^6/uL (4.30-6.10); WHITE BLOOD COUNT 6.2 10^3/uL (4.0-10.0)
[2024-05-12] MEDS: [UNRECOGNIZED DRUG - OTHER] IV ONE (12:10)
[2024-05-12] MEDS: NS 0.9% IV ONE (12:10)
[2024-05-12] MEDS: CEFEPIME HCL 2 GM in DEXTROSE 5% (D5W) ADV/MINI-BAG 50 ML IV ONE (12:11)
[2024-05-12 12:23] LABS: VENOUS BASE EXCESS -2.7 (-2.0-2.0); VENOUS HCO3 24.9 MMOL/L (23.0-27.0); VENOUS PARTIAL PRESSURE CO2 54.1 mmHg (38.0-50.0); VENOUS PARTIAL PRESSURE O2 28.8 mmHg (30.0-50.0); VENOUS PH 7.281 UNITS (7.330-7.430); VENOUS STANDARD HCO3 21.2 MMOL/L; VENOUS TOTAL CO2 26.6 MMOL/L (24.0-28.0)
[2024-05-12 12:24] LABS: ALBUMIN 3.5 G/DL (3.2-5.2); ALKALINE PHOSPHATASE 41 U/L (40-129); ALT/SGPT 25 U/L (7.0-40); AST/SGOT 13 U/L (<34); BILIRUBIN,DIRECT 0.3 MG/DL (<0.4); BILIRUBIN,TOTAL 0.8 MG/DL (0.3-1.2); BLOOD UREA NITROGEN 21 MG/DL (9-23); CALCIUM LEVEL 8.5 MG/DL (8.3-10.6); CARBON DIOXIDE LEVEL 26 MMOL/L (20-31); CHLORIDE LEVEL 107 MMOL/L (98-107); CREATININE FOR GFR 0.86 MG/DL (0.70-1.30); GLOMERULAR FILTRATION RATE > 60.0 (>49); GLUCOSE, FASTING 132 MG/DL (74-106); POTASSIUM SERUM 5.1 MMOL/L (3.5-5.1); SODIUM LEVEL 142 MMOL/L (136-145); TOTAL PROTEIN 6.3 G/DL (5.7-8.2)
[2024-05-12] MEDS: IPRATROPIUM 0.5MG/ALBUTEROL 2.5MG INH SOL UD 3ML (DUONEB) NEB ONE (12:30)
[2024-05-12] MEDS ORDERED: OXYC-517 PO (12:51)
[2024-05-12] MEDS ORDERED: FLUT1INH3 INH (12:51)
[2024-05-12] MEDS ORDERED: HOME MED LIST COMPLETE! XX SCH (12:55)
[2024-05-12 12:59] LABS: INR 1.02; PARTIAL THROMBOPLASTIN TIME 29.2 SECONDS (24.8-34.2); PROTHROMBIN TIME 13.7 SECONDS (12.5-14.5)
[2024-05-12 13:14] LABS: PROCALCITONIN 5.46 ng/ml
[2024-05-12] MEDS ORDERED: ISOVUE-370 76% 100ML VIAL As Ordered ONE (13:15)
[2024-05-12] MEDS ORDERED: DEXTROSE 50% 50ML SYRINGE IV PRN (14:15)
[2024-05-12] MEDS ORDERED: GLUCOSE 4 GM CHEW PO PRN (14:15)
[2024-05-12] MEDS ORDERED: GLUCAGON INJ 1MG VIAL SC PRN (14:15)
[2024-05-12 14:16] LABS: ETHYL ALCOHOL (ETHANOL) < 0.003 % (0.000-0.010)
[2024-05-12 14:16] LABS: ABG BASE EXCESS -4.3 (-2.0-2.0); ABG HCO3 20.1 MMOL/L (22.0-26.0); ABG PARTIAL PRESSURE CO2 34.8 mmHg (35.0-45.0); ABG PARTIAL PRESSURE O2 80.2 mmHg (75.0-100.0); ABG STANDARD HCO3 20.9 MMOL/L. (22.0-26.0); ABG TOTAL CO2 21.1 MMOL/L (23.0-31.0); ABG pH (ARTERIAL) 7.379 UNITS (7.350-7.450)
[2024-05-12 14:18] LABS: C REACTIVE PROTEIN QUANTITATIV 6.03 MG/DL (<1.0)
[2024-05-12] MEDS: NS (Normal Saline) 0.9% 1,000 ML IV SCH (14:33)
[2024-05-12 14:46] LABS: KETONE, URINE AUTO RFX NEGATIVE (NEGATIVE); LEUKOCYTE ESTERASE UR AUTO RFX NEGATIVE (NEGATIVE); NITRITE, URINE AUTO RFX NEGATIVE (NEGATIVE); RBC, URINE AUTO RFX 1 /HPF (0-3); SQUAM EPITHELIAL CELL UR AURFX 0 /HPF (0-6); WBC, URINE AUTO RFX 1 /HPF (0-3)
[2024-05-12] MEDS: APIXABAN 5 MG TAB (ELIQUIS) PO SCH (14:55)
[2024-05-12] MEDS: MONTELUKAST 10 MG TAB PO SCH (14:55)
[2024-05-12] MEDS: OMEPRAZOLE 20MG CAP PO SCH (14:56)
[2024-05-12] MEDS: guaiFENesin ER TABLET 600 MG TAB PO SCH (14:56)
[2024-05-12] MEDS: LEVOTHYROXINE 25MCG TABLET (0.025MG) PO SCH (14:56)
[2024-05-12] MEDS: DOXYCYCLINE HYCLATE 100MG TABLET PO SCH (14:57)
[2024-05-12 15:03] LABS: AMPHETAMINES LEVEL URINE NEGATIVE (NEGATIVE); BARBITURATES URINE NEGATIVE (NEGATIVE); METHADONE URINE NEGATIVE (NEGATIVE); PHENCYCLIDINE URINE NEGATIVE (NEGATIVE)
[2024-05-12 15:07] LABS: BENZODIAZEPINES URINE POSITIVE (NEGATIVE); CANNABINOIDS URINE POSITIVE (NEGATIVE); COCAINE METABOLITE URINE POSITIVE (NEGATIVE); OPIATES URINE POSITIVE (NEGATIVE)
[2024-05-12] MEDS: IPRATROPIUM 0.5MG/ALBUTEROL 2.5MG INH SOL UD 3ML (DUONEB) NEB SCH (15:29)
[2024-05-12 15:34] LABS: CK-MB VALUE MASS < 1.0 NG/ML (<3.6)
[2024-05-12 15:35] LABS: HEMOGLOBIN A1c 5.3 % (4.0-6.0)
[2024-05-12 15:36] LABS: CHOLESTEROL LEVEL 89 MG/DL (<200); CPK CREATINE PHOSPHOKINASE 73 U/L (46-171); HDL CHOLESTEROL 49.3 MG/DL (>40); LDL CHOLESTEROL 27.9 MG/DL (<100); MB/CK RELATIVE INDEX 1.36 (< OR =4); NON-HDL-C 39.7 MG/DL; TRIGLYCERIDES LEVEL 59 MG/DL (<150)
[2024-05-12 16:40] VITALS: BP 113/63; TEMP 99.5; O2SAT 98
[2024-05-12] MEDS: INSULIN LISPRO (NovoLOG) PER UNIT SC SCH ×2 (17:07→20:46)
[2024-05-12] MEDS: LIDOCAINE 5% (LIDODERM) PATCH TD ONE (17:42)
[2024-05-12] MEDS: methylPREDNISolone 125MG 2ML VIAL IV SCH (17:42)
[2024-05-12] MEDS: ADVAIR HFA 230/21MCG INHALER INH SCH (18:15)
[2024-05-12] MEDS: cefTRIAXone SOD 2 GM in DEXTROSE 5% (D5W) ADV/MINI-BAG 50 ML IV SCH (19:38)
[2024-05-12 20:06] VITALS: BP 127/86; TEMP 100.8; TEMP 97.5; O2SAT 88
[2024-05-12] MEDS: ACETAMINOPHEN 325 MG TAB PO PRN (20:45)
[2024-05-12] MEDS: LEVALBUTEROL 1.25MG 0.5ML CONCENTRATE NEB NEB SCH (20:46)
[2024-05-12] MEDS: ATORVASTATIN 20 MG TAB PO SCH (20:46)
[2024-05-12] MEDS: LATANOPROST 0.005% OPHTH SOLN 2.5 ML OU SCH (20:46)
[2024-05-12 21:07] LABS: BASO % 0.1 % (0.0-1.0); HEMATOCRIT 40.2 % (42.0-52.0); LYMPH # 0.4 10^3/uL (1.5-5.0); LYMPH % 4.1 % (24.0-44.0); MEAN CORPUSCULAR HEMOGLOBIN 30.7 pg (27.0-33.0); MEAN CORPUSCULAR HGB CONC 32.3 g/dl (32.0-36.5); MONO # 0.3 10^3/uL (0.0-0.8); MONO % 3.4 % (2.0-8.0); NEUTROPHILS # 7.9 10^3/uL (1.5-8.5); NEUTROPHILS % 92.1 % (36.0-66.0); PLATELET COUNT, AUTOMATED 122 10^3/uL (150-450); RED BLOOD COUNT 4.23 10^6/uL (4.30-6.10); WHITE BLOOD COUNT 8.6 10^3/uL (4.0-10.0)
[2024-05-12 22:02] VITALS: BP 130/87; TEMP 99.6; O2SAT 91
[2024-05-13] VITALS (8 sets, daily range): BP systolic 121–142; BP diastolic 73–80; TEMP 98.2–100.3; O2SAT 90–95
[2024-05-13 06:32] LABS: HEMATOCRIT 38.1 % (42.0-52.0); HEMOGLOBIN 12.6 g/dl (13.5-17.5); MEAN CORPUSCULAR HEMOGLOBIN 31.5 pg (27.0-33.0); MEAN CORPUSCULAR HGB CONC 33.1 g/dl (32.0-36.5); MEAN CORPUSCULAR VOLUME 95.3 fl (80.0-96.0); PLATELET COUNT, AUTOMATED 103 10^3/uL (150-450); WHITE BLOOD COUNT 9.3 10^3/uL (4.0-10.0)
[2024-05-13 07:13] LABS: ALBUMIN 2.9 G/DL (3.2-5.2); ALKALINE PHOSPHATASE 33 U/L (40-129); ALT/SGPT 21 U/L (7.0-40); AST/SGOT 9 U/L (<34); BILIRUBIN,TOTAL 0.6 MG/DL (0.3-1.2); BLOOD UREA NITROGEN 16 MG/DL (9-23); CALCIUM LEVEL 7.9 MG/DL (8.3-10.6); CARBON DIOXIDE LEVEL 23 MMOL/L (20-31); CHLORIDE LEVEL 111 MMOL/L (98-107); CREATININE FOR GFR 0.71 MG/DL (0.70-1.30); GLOMERULAR FILTRATION RATE > 60.0 (>49); GLUCOSE, FASTING 165 MG/DL (74-106); POTASSIUM SERUM 3.7 MMOL/L (3.5-5.1); SODIUM LEVEL 145 MMOL/L (136-145); TOTAL PROTEIN 5.5 G/DL (5.7-8.2)
[2024-05-13] MEDS ORDERED: PANTOPRAZOLE 40MG TAB (PROTONIX) PO SCH (09:00)
[2024-05-13] MEDS ORDERED: ENOXAPARIN 40MG/0.4ML SYRINGE (J1650 PER 10MG) SC SCH (09:00)
[2024-05-14] VITALS (11 sets, daily range): BP systolic 144–165; BP diastolic 70–99; TEMP 97.2–99.3; O2SAT 89–95
[2024-05-14] MEDS: diazePAM 10 MG TAB PO PRN (00:04)
[2024-05-14] MEDS: KETOROLAC TROMETHAMINE 10 MG TAB PO ONE (00:05)
[2024-05-14 06:06] LABS: HEMATOCRIT 35.5 % (42.0-52.0); HEMOGLOBIN 11.6 g/dl (13.5-17.5); MEAN CORPUSCULAR HEMOGLOBIN 30.8 pg (27.0-33.0); MEAN CORPUSCULAR HGB CONC 32.7 g/dl (32.0-36.5); MEAN CORPUSCULAR VOLUME 94.2 fl (80.0-96.0); RED BLOOD COUNT 3.77 10^6/uL (4.30-6.10); WHITE BLOOD COUNT 8.1 10^3/uL (4.0-10.0)
[2024-05-14 06:34] LABS: PLATELET COUNT, AUTOMATED 92 10^3/uL (150-450)
[2024-05-14 06:40] LABS: ALBUMIN 2.8 G/DL (3.2-5.2); ALKALINE PHOSPHATASE 31 U/L (40-129); ALT/SGPT 26 U/L (7.0-40); AST/SGOT 15 U/L (<34); BILIRUBIN,TOTAL 0.3 MG/DL (0.3-1.2); BLOOD UREA NITROGEN 20 MG/DL (9-23); CARBON DIOXIDE LEVEL 22 MMOL/L (20-31); CHLORIDE LEVEL 112 MMOL/L (98-107); CREATININE FOR GFR 0.68 MG/DL (0.70-1.30); GLOMERULAR FILTRATION RATE > 60.0 (>49); GLUCOSE, FASTING 192 MG/DL (74-106); POTASSIUM SERUM 3.6 MMOL/L (3.5-5.1); SODIUM LEVEL 146 MMOL/L (136-145); TOTAL PROTEIN 5.5 G/DL (5.7-8.2)
[2024-05-14] MEDS: LEVEMIR (INSULIN DETEMIR) 1 UNITS/0.01ML SC SCH (09:57)
[2024-05-14 12:00] LABS: PROCALCITONIN 1.74 ng/ml
[2024-05-14 16:13] LABS: C REACTIVE PROTEIN QUANTITATIV 6.61 MG/DL (<1.0)
[2024-05-14] MEDS: amLODIPine 5 MG TAB PO SCH (16:54)
[2024-05-14] MEDS: NORCO, ANEXSIA 5/325MG TABLET (HYDROcodone/ACETAMINOPHEN) PO PRN (19:23)
[2024-05-15 03:28] VITALS: BP 148/82; TEMP 98.1; O2SAT 91
[2024-05-15 06:52] LABS: HEMATOCRIT 38.6 % (42.0-52.0); HEMOGLOBIN 12.9 g/dl (13.5-17.5); MEAN CORPUSCULAR HEMOGLOBIN 30.9 pg (27.0-33.0); MEAN CORPUSCULAR HGB CONC 33.4 g/dl (32.0-36.5); MEAN CORPUSCULAR VOLUME 92.3 fl (80.0-96.0); PLATELET COUNT, AUTOMATED 105 10^3/uL (150-450); RED BLOOD COUNT 4.18 10^6/uL (4.30-6.10); WHITE BLOOD COUNT 10.3 10^3/uL (4.0-10.0)
[2024-05-15 08:18] LABS: ALKALINE PHOSPHATASE 37 U/L (40-129); ALT/SGPT 28 U/L (7.0-40); AST/SGOT 13 U/L (<34); BLOOD UREA NITROGEN 14 MG/DL (9-23); CALCIUM LEVEL 8.6 MG/DL (8.3-10.6); CARBON DIOXIDE LEVEL 26 MMOL/L (20-31); CHLORIDE LEVEL 108 MMOL/L (98-107); CREATININE FOR GFR 0.66 MG/DL (0.70-1.30); GLOMERULAR FILTRATION RATE > 60.0 (>49); GLUCOSE, FASTING 125 MG/DL (74-106); POTASSIUM SERUM 3.4 MMOL/L (3.5-5.1); SODIUM LEVEL 146 MMOL/L (136-145)
[2024-05-15 08:26] LABS: BILIRUBIN,TOTAL 0.5 MG/DL (0.3-1.2); TOTAL PROTEIN 5.8 G/DL (5.7-8.2)
[2024-05-15 08:49] VITALS: BP 118/70
[2024-05-15] MEDS: predniSONE 20 MG TAB PO SCH (08:49)
[2024-05-15] MEDS: POTASSIUM CHLORIDE 10MEQ SR TABLET PO ONE (08:58)
[2024-05-15] MEDS ORDERED: MUCI600T31 PO (10:59)
[2024-05-15] MEDS ORDERED: PRED10TA2 PO (10:59)
[2024-05-15] MEDS ORDERED: CEFD1CAP9 PO (10:59)
[2024-05-15] MEDS ORDERED: DOXY100T PO (10:59)
[2024-05-17 00:42] LABS: URINE STREP PNEUMONIAE ANTIGEN NOT DETECTED (NOT DETECT)
== END 2024-05-15 13:39 | disposition home or self-care (01) | DRG 871 ==
LOC: EDBD 11:26 → M ED 11:26 → M ED INP 14:03 → M MSPAV 16:31
PROVIDERS: ADMIT Internal Medicine; ATTEND Internal Medicine Nephrology
DX: A41.9 Sepsis, unspecified organism (principal); G92.8 Other toxic encephalopathy; J18.9 Pneumonia, unspecified organism; J96.01 Acute respiratory failure with hypoxia; J69.0 Pneumonitis due to inhalation of food and vomit; J45.901 Unspecified asthma with (acute) exacerbation; K21.9 Gastro-esophageal reflux disease without esophagitis; E11.40 Type 2 diabetes mellitus with diabetic neuropathy, unspecified; E03.9 Hypothyroidism, unspecified; E78.5 Hyperlipidemia, unspecified; I10 Essential (primary) hypertension; I48.91 Unspecified atrial fibrillation; Z79.01 Long term (current) use of anticoagulants; G47.33 Obstructive sleep apnea (adult) (pediatric); F12.10 Cannabis abuse, uncomplicated; F14.10 Cocaine abuse, uncomplicated; F41.9 Anxiety disorder, unspecified; M54.50 Low back pain, unspecified; N62 Hypertrophy of breast; Z88.8 Allergy status to other drugs, medicaments and biological substances; Z79.899 Other long term (current) drug therapy; D50.9 Iron deficiency anemia, unspecified; Z85.828 Personal history of other malignant neoplasm of skin; K58.9 Irritable bowel syndrome, unspecified; Z87.891 Personal history of nicotine dependence

== ENCOUNTER 2024-05-21 11:57 | Inpatient (IN) | payer MEDICARE, OTHER ==
[~2024-05-21] VITALS: Ht 177.8 cm; Wt 86.8 kg
[~2024-05-21 11:57] MED LIST changes: +DOXY100T PO; +FLUT1INH3 INH; +OXYC-517 PO; +PRED10TA2 PO
[2024-05-21 12:48] LABS: VENOUS BASE EXCESS 1.3 (-2.0-2.0); VENOUS HCO3 23.5 MMOL/L (23.0-27.0); VENOUS O2 SATURATION 92.2 % (60.0-80.0); VENOUS PARTIAL PRESSURE CO2 31.3 mmHg (38.0-50.0); VENOUS PARTIAL PRESSURE O2 58.5 mmHg (30.0-50.0); VENOUS PH 7.494 UNITS (7.330-7.430); VENOUS STANDARD HCO3 25.4 MMOL/L; VENOUS TOTAL CO2 24.5 MMOL/L (24.0-28.0)
[2024-05-21] MEDS ORDERED: ISOVUE-370 76% 100ML VIAL As Ordered ONE (12:49)
[2024-05-21 12:56] LABS: BASO % 0.2 % (0.0-1.0); EOS # 0.2 10^3/uL (0.0-0.5); EOS % 1.3 % (0.0-3.0); HEMATOCRIT 47.4 % (42.0-52.0); HEMOGLOBIN 15.8 g/dl (13.5-17.5); LYMPH # 0.3 10^3/uL (1.5-5.0); LYMPH % 2.3 % (24.0-44.0); MEAN CORPUSCULAR HGB CONC 33.3 g/dl (32.0-36.5); MEAN CORPUSCULAR VOLUME 92.9 fl (80.0-96.0); MONO # 0.6 10^3/uL (0.0-0.8); MONO % 4.4 % (2.0-8.0); NEUTROPHILS # 12.9 10^3/uL (1.5-8.5); NEUTROPHILS % 90.6 % (36.0-66.0); PLATELET COUNT, AUTOMATED 244 10^3/uL (150-450); WHITE BLOOD COUNT 14.2 10^3/uL (4.0-10.0)
[2024-05-21 13:18] LABS: LIPASE 20 U/L (12-53)
[2024-05-21 13:19] LABS: CK-MB VALUE MASS < 1.0 NG/ML (<3.6)
[2024-05-21 13:20] LABS: ALBUMIN 3.3 G/DL (3.2-5.2); ALKALINE PHOSPHATASE 46 U/L (40-129); ALT/SGPT 38 U/L (7.0-40); AST/SGOT 15 U/L (<34); BILIRUBIN,DIRECT 0.3 MG/DL (<0.4); BILIRUBIN,TOTAL 0.8 MG/DL (0.3-1.2); BLOOD UREA NITROGEN 17 MG/DL (9-23); CARBON DIOXIDE LEVEL 24 MMOL/L (20-31); CHLORIDE LEVEL 107 MMOL/L (98-107); CREATININE FOR GFR 0.87 MG/DL (0.70-1.30); GLOMERULAR FILTRATION RATE > 60.0 (>49); GLUCOSE, FASTING 126 MG/DL (74-106); POTASSIUM SERUM 3.9 MMOL/L (3.5-5.1); SODIUM LEVEL 142 MMOL/L (136-145); TOTAL PROTEIN 6.3 G/DL (5.7-8.2)
[2024-05-21 13:22] LABS: CPK CREATINE PHOSPHOKINASE 61 U/L (46-171); MB/CK RELATIVE INDEX 1.63 (< OR =4)
[2024-05-21] MEDS: PIPERACILLIN/TAZOBACTAM SOD 4.5 GM in DEXTROSE 5% (D5W) ADV/MINI-BAG 50 ML IV ONE (13:30)
[2024-05-21] MEDS: NS 500 ML IV ONE (13:30)
[2024-05-21] MEDS: ACETAMINOPHEN 325 MG TAB PO ONE (13:30)
[2024-05-21] MEDS: NS (Normal Saline) 0.9% 1,000 ML IV SCH (13:40)
[2024-05-21] MEDS ORDERED: VANCOMYCIN HCL 1,000 MG, VIAL MATE ADAPTER 1 EACH in NS 250 ML IV ONE (14:15)
[2024-05-21 14:22] LABS: CK-MB VALUE MASS < 1.0 NG/ML (<3.6)
[2024-05-21 14:29] LABS: CPK CREATINE PHOSPHOKINASE 52 U/L (46-171); MB/CK RELATIVE INDEX 1.92 (< OR =4)
[2024-05-21] MEDS ORDERED: MAALOX 30 ML SUSP *UDC PO PRN (14:30)
[2024-05-21] MEDS ORDERED: MOM 30ML SUSPENSION UDC PO PRN (14:30)
[2024-05-21 15:41] LABS: PROCALCITONIN 0.66 ng/ml
[2024-05-21] MEDS ORDERED: VANCOMYCIN 1,750 MG/350 ML IV BAG *LOAD IV ONE (16:00)
[2024-05-21] MEDS: IPRATROPIUM 0.5MG/ALBUTEROL 2.5MG INH SOL UD 3ML (DUONEB) NEB PRN (16:08)
[2024-05-21] MEDS ORDERED: MED REC COMMENT (16:56)
[2024-05-21] MEDS ORDERED: MUCI600T31 PO (16:56)
[2024-05-21] MEDS ORDERED: DIPH1TAB80 PO (17:01)
[2024-05-21] MEDS ORDERED: CYCL-707 PO (17:01)
[2024-05-21] MEDS ORDERED: DOCU100C16 PO (17:01)
[2024-05-21] MEDS ORDERED: HOME MED LIST COMPLETE! XX SCH (17:05)
[2024-05-21] MEDS: VANCOMYCIN HCL 750 MG, VIAL MATE ADAPTER 1 EACH in NS 250 ML IV ONE (19:11)
[2024-05-21] MEDS: PIPERACILLIN/TAZOBACTAM SOD 4.5 GM in DEXTROSE 5% (D5W) ADV/MINI-BAG 50 ML IV SCH (20:48)
[2024-05-21] MEDS: APIXABAN 5 MG TAB (ELIQUIS) PO SCH (20:50)
[2024-05-21] MEDS: guaiFENesin ER TABLET 600 MG TAB PO SCH (20:50)
[2024-05-21] MEDS: LOPERAMIDE 2 MG CAPLET PO ONE (22:37)
[2024-05-21] MEDS: ACETAMINOPHEN 325 MG TAB PO PRN (22:37)
[2024-05-21 23:14] VITALS: BP 119/66; TEMP 98.8; O2SAT 95
[2024-05-21 23:51] VITALS: O2SAT 91
[2024-05-22] VITALS (10 sets, daily range): BP systolic 92–137; BP diastolic 58–73; TEMP 98.1–101.1; O2SAT 85–92
[2024-05-22] MEDS: VANCOMYCIN HCL 1,500 MG, VIAL MATE ADAPTER 1 EACH in NS 500 ML IV SCH (00:12)
[2024-05-22 05:40] LABS: BASO % 0.1 % (0.0-1.0); EOS # 0.2 10^3/uL (0.0-0.5); EOS % 1.6 % (0.0-3.0); HEMATOCRIT 37.6 % (42.0-52.0); LYMPH # 0.5 10^3/uL (1.5-5.0); LYMPH % 5.6 % (24.0-44.0); MEAN CORPUSCULAR HEMOGLOBIN 31.6 pg (27.0-33.0); MEAN CORPUSCULAR HGB CONC 33.5 g/dl (32.0-36.5); MEAN CORPUSCULAR VOLUME 94.2 fl (80.0-96.0); MONO # 0.5 10^3/uL (0.0-0.8); MONO % 5.5 % (2.0-8.0); NEUTROPHILS # 7.9 10^3/uL (1.5-8.5); NEUTROPHILS % 86.1 % (36.0-66.0); PLATELET COUNT, AUTOMATED 194 10^3/uL (150-450); RED BLOOD COUNT 3.99 10^6/uL (4.30-6.10); WHITE BLOOD COUNT 9.2 10^3/uL (4.0-10.0)
[2024-05-22 05:42] LABS: HEMOGLOBIN 12.6 g/dl (13.5-17.5)
[2024-05-22 05:54] LABS: BLOOD UREA NITROGEN 16 MG/DL (9-23); CALCIUM LEVEL 6.8 MG/DL (8.3-10.6); CARBON DIOXIDE LEVEL 23 MMOL/L (20-31); CHLORIDE LEVEL 109 MMOL/L (98-107); CREATININE FOR GFR 0.77 MG/DL (0.70-1.30); GLOMERULAR FILTRATION RATE > 60.0 (>49); GLUCOSE, FASTING 100 MG/DL (74-106); MAGNESIUM LEVEL 1.8 MG/DL (1.8-2.4); SODIUM LEVEL 141 MMOL/L (136-145)
[2024-05-22] MEDS: TIOTROPIUM INHALER/CAPSULE (SPIRIVA) INH SCH (07:29)
[2024-05-22] MEDS: POTASSIUM CHLORIDE 10MEQ SR TABLET PO ONE ×2 (08:19→10:00)
[2024-05-22 09:15] LABS: IMMUNOGLOBULIN A 148.4 MG/DL (40-350); IMMUNOGLOBULIN G 623 MG/DL (650-1600); IMMUNOGLOBULIN M 78.8 MG/DL (50-300)
[2024-05-22] MEDS: DOXYCYCLINE HYCLATE 100MG TABLET PO SCH (09:59)
[2024-05-22] MEDS: LACTOBACILLUS ACIDOPHILUS CAP (BACID) PO SCH (10:00)
[2024-05-22] MEDS: LOPERAMIDE 2 MG CAPLET PO PRN (10:02)
[2024-05-22] MEDS ORDERED: CYCLOBENZAPRINE 10MG TABLET PO PRN (14:05)
[2024-05-22] MEDS ORDERED: NORCO, ANEXSIA 5/325MG TABLET (HYDROcodone/ACETAMINOPHEN) PO PRN (14:05)
[2024-05-22] MEDS ORDERED: ALBUTEROL SULFATE 2.5MG/0.5ML INH NEB SOLN INH PRN (14:05)
[2024-05-22] MEDS ORDERED: PREGABALIN 100 MG CAP (LYRICA) PO PRN (14:05)
[2024-05-22] MEDS ORDERED: ALBUTEROL 90 MCG/ACT 8GM HFA INHALER INH PRN (14:05)
[2024-05-22] MEDS ORDERED: GLUCAGON INJ 1MG VIAL SC PRN (14:10)
[2024-05-22] MEDS ORDERED: DEXTROSE 50% 50ML SYRINGE IV PRN (14:10)
[2024-05-22] MEDS ORDERED: GLUCOSE 4 GM CHEW PO PRN (14:10)
[2024-05-22 15:23] LABS: C REACTIVE PROTEIN QUANTITATIV 7.28 MG/DL (<1.0); PERCENT SATURATION 7.4 % (19.7-50.0)
[2024-05-22 15:25] LABS: FERRITIN 234.5 NG/ML (10.5-307.3)
[2024-05-22 15:26] LABS: FOLATE 7.59 NG/ML (>5.4)
[2024-05-22] MEDS: ALBUTEROL SULFATE 2.5MG/0.5ML INH NEB SOLN INH SCH (15:54)
[2024-05-22 15:55] LABS: HEMOGLOBIN A1c 5.6 % (4.0-6.0)
[2024-05-22] MEDS: INSULIN LISPRO (NovoLOG) PER UNIT SC SCH ×2 (17:26→20:22)
[2024-05-22 20:04] LABS: KETONE, URINE AUTO RFX NEGATIVE (NEGATIVE); LEUKOCYTE ESTERASE UR AUTO RFX NEGATIVE (NEGATIVE); MUCUS, URINE RFX SMALL (NEGATIVE); NITRITE, URINE AUTO RFX NEGATIVE (NEGATIVE); RBC, URINE AUTO RFX 5 /HPF (0-3); SQUAM EPITHELIAL CELL UR AURFX 0 /HPF (0-6); WBC, URINE AUTO RFX 3 /HPF (0-3)
[2024-05-22] MEDS: ADVAIR HFA 230/21MCG INHALER INH SCH (20:11)
[2024-05-22] MEDS: ATORVASTATIN 20 MG TAB PO SCH (20:21)
[2024-05-22] MEDS: oxyCODONE 5MG TAB PO PRN (20:21)
[2024-05-22] MEDS: LATANOPROST 0.005% OPHTH SOLN 2.5 ML OU SCH (20:24)
[2024-05-23 04:07] VITALS: BP 130/74; TEMP 98.9; O2SAT 93
[2024-05-23] MEDS: LEVOTHYROXINE 25MCG TABLET (0.025MG) PO SCH (05:04)
[2024-05-23 05:05] LABS: BASO % 0.2 % (0.0-1.0); EOS # 0.1 10^3/uL (0.0-0.5); EOS % 1.2 % (0.0-3.0); HEMATOCRIT 38.4 % (42.0-52.0); HEMOGLOBIN 12.8 g/dl (13.5-17.5); LYMPH # 1.5 10^3/uL (1.5-5.0); LYMPH % 14.9 % (24.0-44.0); MEAN CORPUSCULAR HEMOGLOBIN 31.2 pg (27.0-33.0); MEAN CORPUSCULAR HGB CONC 33.3 g/dl (32.0-36.5); MEAN CORPUSCULAR VOLUME 93.7 fl (80.0-96.0); MONO # 0.8 10^3/uL (0.0-0.8); MONO % 7.7 % (2.0-8.0); NEUTROPHILS # 7.6 10^3/uL (1.5-8.5); NEUTROPHILS % 75.4 % (36.0-66.0); PLATELET COUNT, AUTOMATED 207 10^3/uL (150-450)
[2024-05-23 05:26] LABS: BLOOD UREA NITROGEN 9 MG/DL (9-23); C REACTIVE PROTEIN QUANTITATIV 6.24 MG/DL (<1.0); CALCIUM LEVEL 7.5 MG/DL (8.3-10.6); CARBON DIOXIDE LEVEL 22 MMOL/L (20-31); CHLORIDE LEVEL 113 MMOL/L (98-107); GLOMERULAR FILTRATION RATE > 60.0 (>49); GLUCOSE, FASTING 114 MG/DL (74-106); POTASSIUM SERUM 3.5 MMOL/L (3.5-5.1); SODIUM LEVEL 147 MMOL/L (136-145)
[2024-05-23] MEDS: OMEPRAZOLE 20MG CAP PO SCH (08:15)
[2024-05-23] MEDS: MONTELUKAST 10 MG TAB PO SCH (08:15)
[2024-05-23 12:00] VITALS: BP 132/73; TEMP 99.1; O2SAT 92
[2024-05-23] MEDS: POTASSIUM CHLORIDE 10MEQ SR TABLET PO ONE (12:24)
[2024-05-23] MEDS: FERRIC CARBOXYMALTOSE INJ 750 MG, VIAL MATE ADAPTER 1 EACH in NS 100 ML IV ONE (13:23)
[2024-05-23 13:36] VITALS: BP 127/73
[2024-05-23 18:33] VITALS: TEMP 100.1
[2024-05-23] MEDS: diazePAM 10 MG TAB PO PRN (19:53)
[2024-05-23 20:27] VITALS: BP 120/78; TEMP 99.8; O2SAT 94
[2024-05-24 04:14] VITALS: BP 122/78; TEMP 99.1; O2SAT 91
[2024-05-24 05:09] LABS: BASO % 0.1 % (0.0-1.0); EOS # 0.1 10^3/uL (0.0-0.5); EOS % 1.4 % (0.0-3.0); HEMATOCRIT 34.7 % (42.0-52.0); HEMOGLOBIN 11.3 g/dl (13.5-17.5); LYMPH # 1.3 10^3/uL (1.5-5.0); LYMPH % 14.3 % (24.0-44.0); MEAN CORPUSCULAR HEMOGLOBIN 30.5 pg (27.0-33.0); MEAN CORPUSCULAR HGB CONC 32.6 g/dl (32.0-36.5); MEAN CORPUSCULAR VOLUME 93.8 fl (80.0-96.0); MONO # 0.8 10^3/uL (0.0-0.8); NEUTROPHILS # 6.6 10^3/uL (1.5-8.5); NEUTROPHILS % 74.7 % (36.0-66.0); PLATELET COUNT, AUTOMATED 179 10^3/uL (150-450); WHITE BLOOD COUNT 8.8 10^3/uL (4.0-10.0)
[2024-05-24 05:36] LABS: C REACTIVE PROTEIN QUANTITATIV 4.15 MG/DL (<1.0)
[2024-05-24 05:43] LABS: BLOOD UREA NITROGEN < 5 MG/DL (9-23); CALCIUM LEVEL 7.5 MG/DL (8.3-10.6); CARBON DIOXIDE LEVEL 24 MMOL/L (20-31); CHLORIDE LEVEL 111 MMOL/L (98-107); CREATININE FOR GFR 0.67 MG/DL (0.70-1.30); GLOMERULAR FILTRATION RATE > 60.0 (>49); GLUCOSE, FASTING 98 MG/DL (74-106); MAGNESIUM LEVEL 1.7 MG/DL (1.8-2.4); POTASSIUM SERUM 3.6 MMOL/L (3.5-5.1); SODIUM LEVEL 146 MMOL/L (136-145)
[2024-05-24] MEDS: MAG SULF 1GM/100ML (MAG RUN) 1 GM in IV 1 EA IV ONE (08:35)
[2024-05-24] MEDS: VITAMIN D 50,000 UNITS CAPSULE (ERGOCALCIFEROL 1.25MG) PO SCH (08:35)
[2024-05-24] MEDS: FERROUS SULFATE 325MG TAB PO SCH (08:36)
[2024-05-24] MEDS ORDERED: FERR1TAB8 PO (09:49)
[2024-05-24] MEDS ORDERED: MUCI600T31 PO (09:49)
[2024-05-24] MEDS ORDERED: RISATAB3 PO (09:49)
[2024-05-24] MEDS ORDERED: PRED20TA PO (11:00)
[2024-05-24 11:55] VITALS: BP 115/76; TEMP 99.4; O2SAT 96
[2024-05-25 19:46] LABS: URINE STREP PNEUMONIAE ANTIGEN NOT DETECTED (NOT DETECT)
== END 2024-05-24 15:01 | disposition home health service (06) | DRG 871 ==
LOC: M ED 11:57 → EDBD 11:57 → M ED INP 14:30 → M MSPAV 23:05
PROVIDERS: ADMIT Student in an Organized Health Care Education/Training Program; ATTEND Internal Medicine
DX: A41.9 Sepsis, unspecified organism (principal); J69.0 Pneumonitis due to inhalation of food and vomit; A08.11 Acute gastroenteropathy due to Norwalk agent; E87.0 Hyperosmolality and hypernatremia; D80.1 Nonfamilial hypogammaglobulinemia; J44.0 Chronic obstructive pulmonary disease with (acute) lower respiratory infection; J98.11 Atelectasis; R65.20 Severe sepsis without septic shock; I10 Essential (primary) hypertension; E78.5 Hyperlipidemia, unspecified; M54.50 Low back pain, unspecified; G89.29 Other chronic pain; G47.33 Obstructive sleep apnea (adult) (pediatric); I48.91 Unspecified atrial fibrillation; D50.9 Iron deficiency anemia, unspecified; E11.42 Type 2 diabetes mellitus with diabetic polyneuropathy; J45.909 Unspecified asthma, uncomplicated; K58.9 Irritable bowel syndrome, unspecified; E03.9 Hypothyroidism, unspecified; K21.9 Gastro-esophageal reflux disease without esophagitis; Z79.01 Long term (current) use of anticoagulants; Z79.51 Long term (current) use of inhaled steroids; Z79.890 Hormone replacement therapy; Z85.828 Personal history of other malignant neoplasm of skin; Z79.52 Long term (current) use of systemic steroids; Z79.899 Other long term (current) drug therapy; Z88.8 Allergy status to other drugs, medicaments and biological substances; E87.6 Hypokalemia

== ENCOUNTER → 2024-06-04 | Outpatient (CLI) | payer MEDICARE ==
[~2024-06-04] MED LIST changes: +CYCL-707 PO; +DIPH1TAB80 PO; +DOCU100C16 PO; +FERR1TAB8 PO; +MED REC COMMENT; +RISATAB3 PO
[2024-06-04 15:44] LABS: IMMUNOGLOBULIN A 223.7 MG/DL (40-350); IMMUNOGLOBULIN G 1102 MG/DL (650-1600)
[2024-06-04 15:48] LABS: IMMUNOGLOBULIN E 2206.1 IU/ML (0-378)
[2024-06-04 15:57] LABS: HEPATITIS B SURFACE ANTIGEN NEGATIVE (NEGATIVE)
[2024-06-04 16:09] LABS: HIV 1&2 SCREEN NEGATIVE (NEGATIVE)
[2024-06-04 16:18] LABS: HEPATITIS C VIRUS ABY INDEX 0.12 INDEX (<0.8)
[2024-06-06 13:52] LABS: HEPATITIS B CORE ANTIBODY IGG NON-REACTIVE (NON-REACTIVE); HEPATITIS B SURF AB QUANT < 5 mIU/mL (> OR = 10)
[2024-06-08 23:38] LABS: IgG SERUM (part of Subclasses) 995 mg/dL (600-1540); IgG Subclass 1 622 mg/dL (382-929); IgG Subclass 2 258 mg/dL (241-700); IgG Subclass 3 29 mg/dL (22-178); IgG Subclass 4 40.2 mg/dL (4.0-86.0)
== END ==
LOC: M PLALAB 12:49
PROVIDERS: ATTEND Internal Medicine Infectious Disease
DX: Z11.59 Encounter for screening for other viral diseases (principal); D80.1 Nonfamilial hypogammaglobulinemia; J18.9 Pneumonia, unspecified organism

== ENCOUNTER → 2024-06-26 | Outpatient (CLI) | payer MEDICARE | LOC: M RADPRO 10:47 | PROVIDERS: ATTEND Internal Medicine Pulmonary Disease | DX: J45.40 Moderate persistent asthma, uncomplicated (principal); J17 Pneumonia in diseases classified elsewhere ==

== ENCOUNTER → 2024-06-26 | Outpatient (CLI) | payer MEDICARE ==
[2024-06-26 12:19] LABS: HEPATITIS B SURFACE ANTIBODY NEGATIVE (POSITIVE)
[2024-06-26 12:31] LABS: HEPATITIS B SURFACE ANTIGEN NEGATIVE (NEGATIVE)
[2024-06-26 12:43] LABS: HIV 1&2 SCREEN NEGATIVE (NEGATIVE)
[2024-06-26 12:50] LABS: IMMUNOGLOBULIN A 193.3 MG/DL (40-350); IMMUNOGLOBULIN G 1080 MG/DL (650-1600); IMMUNOGLOBULIN M 91.3 MG/DL (50-300)
[2024-06-26 12:52] LABS: HEPATITIS C VIRUS ABY INDEX 0.05 INDEX (<0.8)
[2024-06-26 14:08] LABS: IMMUNOGLOBULIN E 1682.6 IU/ML (0-378)
[2024-06-27 13:37] LABS: HEPATITIS B CORE ANTIBODY IGG NON-REACTIVE (NON-REACTIVE)
== END ==
LOC: M LAB 10:50
PROVIDERS: ATTEND Internal Medicine Infectious Disease
DX: D80.1 Nonfamilial hypogammaglobulinemia (principal); Z11.59 Encounter for screening for other viral diseases; J18.9 Pneumonia, unspecified organism; Z11.3 Encounter for screening for infections with a predominantly sexual mode of transmission; Z72.89 Other problems related to lifestyle; J45.40 Moderate persistent asthma, uncomplicated; J17 Pneumonia in diseases classified elsewhere

== ENCOUNTER → 2024-07-05 | Outpatient (REF) | payer MEDICARE ==
[2024-07-05 14:12] LABS: BASO % 0.7 % (0.0-1.0); EOS # 0.1 10^3/uL (0.0-0.5); EOS % 1.9 % (0.0-3.0); HEMATOCRIT 43.5 % (42.0-52.0); HEMOGLOBIN 14.4 g/dl (13.5-17.5); LYMPH % 18.9 % (24.0-44.0); MEAN CORPUSCULAR HEMOGLOBIN 31.4 pg (27.0-33.0); MEAN CORPUSCULAR HGB CONC 33.1 g/dl (32.0-36.5); MONO # 0.5 10^3/uL (0.0-0.8); MONO % 8.6 % (2.0-8.0); NEUTROPHILS # 3.7 10^3/uL (1.5-8.5); NEUTROPHILS % 69.5 % (36.0-66.0); PLATELET COUNT, AUTOMATED 158 10^3/uL (150-450); RED BLOOD COUNT 4.58 10^6/uL (4.30-6.10); WHITE BLOOD COUNT 5.4 10^3/uL (4.0-10.0)
[2024-07-06 19:22] LABS: BERMUDA GRASS IGE 4.47 kU/L (<0.10); D001 IGE D PTERONYSSINUS 3.45 kU/L (<0.10); D002-IGE D FARINAE 3.62 kU/L (<0.10); E005-IGE DOG DANDER 5.35 kU/L (<0.10); ELM IGE 4.34 kU/L (<0.10); IMMUNOGLOBULIN E FOR ALLERGENS 1048 kU/L (<OR=114); M002 IGE CLADOSPORIUM HERBARU 0.32 kU/L (<0.10); M003 IGE ASPERGILLUS FUMIGATU 1.23 kU/L (<0.10); M006 IGE ALTERNIA ALTERNATA 1.51 kU/L (<0.10); MOUSE URINE IGE < 0.10 kU/L (<0.10); MUGWORT IGE 4.64 kU/L (<0.10); ROUGH PIGWEED IGE 2.99 kU/L (<0.10); SHEEP SORREL IGE 3.95 kU/L (<0.10); SYCAMORE IGE 3.92 kU/L (<0.10); T014 COTTONWOOD IGE 2.74 kU/L (<0.10); TIMOTHY GRASS IGE 9.24 kU/L (<0.10); WALNUT TREE IGE 3.72 kU/L (<0.10); WHITE MULBERRY IGE 1.67 kU/L (<0.10)
== END ==
LOC: M LAB REF 13:11
PROVIDERS: ATTEND Internal Medicine Pulmonary Disease
DX: J45.40 Moderate persistent asthma, uncomplicated (principal)

== ENCOUNTER → 2024-07-10 | Outpatient (CLI) | payer MEDICARE ==
[2024-07-10 11:58] LABS: RHEUMATOID FACTOR QUANT < 3.5 IU/ML (<14); THYROID STIMULATING HORMONE 0.777 uIU/ML (0.55-4.78)
[2024-07-10 11:59] LABS: VITAMIN B12 LEVEL 645 PG/ML (211-911)
[2024-07-11 15:47] LABS: ANA SCREEN, IFA NEGATIVE (NEGATIVE)
== END ==
LOC: M LAB 10:30
PROVIDERS: ATTEND Psychiatry & Neurology Neurology
DX: R41.3 Other amnesia (principal)

== ENCOUNTER → 2024-07-23 | Outpatient (CLI) | payer MEDICARE ==
[2024-07-23 10:33] LABS: HEMOGLOBIN A1c 4.8 % (4.0-6.0)
== END ==
LOC: M LAB 09:30
PROVIDERS: ATTEND Nurse Practitioner Family
DX: E11.9 Type 2 diabetes mellitus without complications (principal)

== ENCOUNTER → 2024-08-02 | Outpatient (CLI) | payer MEDICARE ==
[~2024-08-02] MED LIST changes: -PREG25CA PO; +PREG25CA63 PO
== END ==
LOC: M PLAIMG 07:17
PROVIDERS: ATTEND Internal Medicine Pulmonary Disease
DX: J45.40 Moderate persistent asthma, uncomplicated (principal); N28.1 Cyst of kidney, acquired; N20.0 Calculus of kidney; N62 Hypertrophy of breast

== ENCOUNTER 2024-12-20 15:48 | Emergency (ER) | payer MEDICARE ==
[~2024-12-20] VITALS: Ht 175.3 cm; Wt 97.1 kg
[~2024-12-20 15:48] MED LIST changes: +LIDO1ADH93 TD; -LIDO5DIS41 TD; +LISI40TA10; +LISI40TA10 PO; -LISI40TA4; -LISI40TA4 PO
[2024-12-20 17:16] LABS: BASO # 0.0 10^3/uL (0.0-0.2); BASO % 0.7 % (0.0-1.0); EOS # 0.1 10^3/uL (0.0-0.5); EOS % 1.8 % (0.0-3.0); LYMPH # 1.2 10^3/uL (1.5-5.0); LYMPH % 22.2 % (24.0-44.0); MONO # 0.5 10^3/uL (0.0-0.8); MONO % 8.5 % (2.0-8.0); NEUTROPHILS # 3.6 10^3/uL (1.5-8.5); NEUTROPHILS % 65.9 % (36.0-66.0); PLATELET COUNT, AUTOMATED 142 10^3/uL (150-450)
[2024-12-20 17:20] VITALS: BP 163/96
[2024-12-20] MEDS: ACETAMINOPHEN *IV* 1,000 MG in IV 1 EA IV ONE (17:20)
[2024-12-20] MEDS: amLODIPine 5 MG TAB PO ONE (17:20)
[2024-12-20] MEDS ORDERED: ISOVUE-370 76% 100 ML VIAL As Ordered ONE (19:13)
[2024-12-20 23:15] VITALS: BP 160/99; TEMP 97.9; O2SAT 95
[2024-12-20] MEDS ORDERED: AMLO1TAB24 PO (23:49)
== END 2024-12-20 23:57 | disposition home or self-care (01) ==
LOC: M ED 15:48
DX: R51.9 Headache, unspecified (principal); I10 Essential (primary) hypertension; E11.9 Type 2 diabetes mellitus without complications; K58.9 Irritable bowel syndrome, unspecified; J45.909 Unspecified asthma, uncomplicated; J44.9 Chronic obstructive pulmonary disease, unspecified; F32.A Depression, unspecified; F41.9 Anxiety disorder, unspecified; E78.5 Hyperlipidemia, unspecified; G47.33 Obstructive sleep apnea (adult) (pediatric); F10.10 Alcohol abuse, uncomplicated; Z88.8 Allergy status to other drugs, medicaments and biological substances; Z79.52 Long term (current) use of systemic steroids; Z79.01 Long term (current) use of anticoagulants; Z79.899 Other long term (current) drug therapy
CPT/HCPCS: 70450; 70496; 80047; 85025; 96374; 99285; J0131; Q9967

== ENCOUNTER → 2025-02-01 | Outpatient (CLI) | payer MEDICARE ==
[~2025-02-01] MED LIST changes: +AMLO1TAB24 PO
== END ==
LOC: M RAD 14:31
PROVIDERS: ATTEND Internal Medicine Pulmonary Disease
DX: J45.40 Moderate persistent asthma, uncomplicated (principal)

== ENCOUNTER → 2025-02-12 | Outpatient (CLI) | payer MEDICARE | LOC: M LAB 12:13 | PROVIDERS: ATTEND Nurse Practitioner Family | DX: E03.9 Hypothyroidism, unspecified (principal) ==